=== PATIENT | male | born 1965 | race Caucasian/White ===

== ENCOUNTER 2020-09-11 11:13 | Outpatient (REF) | payer MEDICAID, SELFPAY ==
[2020-09-11 15:23] LABS: SARS COV2 PCR INHOUSE NEGATIVE (Negative)
== END 2020-09-11 11:14 | disposition home or self-care (01) ==
LOC: HO.LAB 11:13
PROVIDERS: Visit Provider Internal Medicine
DX: Z20.822 Contact with and (suspected) exposure to COVID-19 (principal)
CPT/HCPCS: C9803; U0003

== ENCOUNTER 2021-11-19 10:41 | Emergency (ER) | payer MEDICAID, OTHER, SELFPAY ==
--- NOTE | ~2021-11-19 | XR_ITS ---
EXAMINATION: XR CHEST CLINICAL INFORMATION: Cough for 3 days COMPARISON: Chest x-ray 09/19/2019 TECHNIQUE: Frontal view of the chest was obtained. FINDINGS: Cardiac silhouette is normal in size. Unchanged prominent right paratracheal stripe. The lungs are well aerated. There is no lobar consolidation. No pleural effusion or pneumothorax. XR/XR chest 1V IMPRESSION: No acute pulmonary pathology.
[2021-11-19 10:50] VITALS: BP 143/86; PULSE 80; RESP 16; TEMP 35.8; O2SAT 97; BMI 33.6
[2021-11-19 11:19] LABS: IDNOW Serial# 08D9AD1C; Strep A Nucleic Acid Negative (Negative)
[2021-11-19 11:24] LABS: COVID-19 Test Negative (Negative); IDNOW Serial# 16C4AD1C; Influenza A Negative (Negative); Influenza B2 Negative (Negative)
--- NOTE | 2021-11-19 16:37 | ED_ITS ---
HPI - URI/Sore Throat General Chief Complaint: Upper Respiratory Symptoms Stated Complaint: Sore throat/Cough/Fever Time Seen by Provider: 11/19/21 12:13 Source: patient Mode of arrival: ambulatory Limitations: language barrier History of Present Illness HPI Narrative: 56-year-old Swazi-speaking male presents for 3 days of runny nose, itchy eyes, headache, sneezing, cough, body aches, sore throat. Patient has a history of seasonal allergies. Related Data Previous Rx's Medication Instructions Recorded cetirizine 10 mg tablet 10 mg PO DAILY 30 days #30 tabs 11/19/21 Allergies Allergy/AdvReac Type Severity Reaction Status Date / Time No Known Allergies Allergy Unverified 02/29/20 19:42 [No Known Allergies*] Review of Systems Constitutional: Constitutional: Denies body ache(s), Denies chills, Denies fatigue, Denies fever(s), Reports headache(s), Denies malaise and Denies weakness Eyes: Eyes: Denies change in vision, Denies diplopia and Reports itchy eyes ENT: Denies vertigo, Denies dizziness, Denies otalgia, Reports headache(s), Denies mouth pain, Reports nasal discharge, Denies post nasal drip, Denies sinus pain, Denies sinus pressure, Reports sore throat and Denies throat swelling Cardiovascular: Cardiovascular: Denies chest pain, Denies syncope, Denies leg edema, Denies lightheadedness, Denies Loss of Consciousness, Denies palpitations and Denies dyspnea Respiratory: Respiratory: Denies chest congestion, Reports cough and Denies dyspnea Gastrointestinal: Gastrointestinal: Denies abdominal pain, Denies hematochezia, Denies constipation, Denies diarrhea, Denies nausea and Denies vomiting Musculoskeletal: Musculoskeletal: Reports myalgias Neurologic: Denies confusion, Denies vertigo, Denies dizziness, Denies syncope, Reports headache(s) and Denies weakness Psychiatric: Psychiatric: Denies anxiety, Denies confusion and Denies depression Endocrine: Endocrine: Denies fatigue and Denies palpitations Allergic/Immunologic: Allergic/Immunologic: Reports itchy eyes and Denies throat swelling PMFSH Social History Social History Advance Directives: No Advance Directives Information Provided: No Physical Exam Vital Signs: Vital Signs: Last Vital Signs Temp 96.5 F L 11/19/21 10:50 Pulse 80 11/19/21 10:50 Resp 16 11/19/21 10:50 BP 143/86 H 11/19/21 10:50 Pulse Ox 97 11/19/21 10:50 O2 Del Method 11/19/21 10:50 BMI result Body Mass Index 33.6 Const: General: No confusion Nutritional Appearance: well nourished Orientation/consciousness: No confusion Limitations: no limitations HEENT: Head: Yes normal to inspection, Yes normocephalic and Yes atraumatic Ears: hearing grossly normal bilaterally, external ears normal, TM's normal bilaterally and EAC's normal General nose exam: Normal external nose present Face and sinus: Yes normal facial exam and Yes sinuses nontender Mouth: Normal oral and palatal mucosa present Throat: Yes posterior oropharynx normal Eyes: Conjunctivae: conjunctivae normal Pupils: Equal, round and reactive pupils present EOM: EOMs intact bilaterally Neck: Neck: Yes full ROM, Yes no lymphadenopathy and Yes supple Resp: Effort & Inspection: normal respiratory effort and able to speak in complete sentences Auscultation: clear to auscultation bilaterally, no crackles, no rales, no rhonchi and no wheezes Cardio: Rate: regular rate Rhythm: regular rhythm Heart sounds: S1 normal heart sound present and S2 normal heart sound present GI: Inspection: Yes normal to inspection Palpation (GI): Soft to palpation, nontender, no guarding and not rigid Percussion: Yes normal to percussion Auscultation: normal bowel sounds Skin: General skin exam: no rashes or lesions noted Neuro: General: No confusion Cranial nerves: Yes Equal, round and reactive pupils present Extrem: General: Yes normal to inspection and Yes full ROM Psych: Appearance: grossly normal Affect: normal affect Attitude: cooperative Thought process: Normal thought process present Course Course Course Narrative: 56-year-old male with 3 days of runny nose, itchy eyes, sneezing, headache, sore throat, body aches, cough. No fever. Patient has a history of seasonal allergies . On exam, patient is afebrile, stable vitals, lungs clear to auscultation bilaterally, physical exam is benign. Patient is COVID negative, influenza negative, strep negative. This is either a viral syndrome or a seasonal allergy exacerbation. Will treat with cetirizine. Counseled patient to follow-up with her primary care provider and gave return precautions [facility] - URI/Sore Throat Lab Data Labs: Lab Results 11/19/21 11/19/21 11/19/21 Range/Units 10:55 10:55 10:55 COVID-19 (ELLEN) Negative (Negative) COVID-19 Clin Com See Note Influenza Type A (JULIET) Negative (Negative) Influenza Type B (JULIET) Negative (Negative) Influenza A & B Note See Note S. pyogenes GrpA JULIET Negative (Negative) Discharge Plan Discharge Clinical Impression: Seasonal allergic reaction Patient Disposition: Home, Self-Care Instructions: Allergic Rhinitis (ED) Additional Instructions: your COVID test, strep test, an influenza test, were all negative today. Her chest x-ray was normal. I think you have seasonal allergies, I prescribed allergy medicine to your pharmacy. Please call your primary care provider for follow-up appointment from today's emergency room visit villasenor prueba de COVID, prueba de estreptococo, yuliya prueba de influenza, dieron negativo hoy. [place]as[place] radiograf?a de t?rax fue normal. Creo que tiene alergias estacionales, le recet? un medicamento para la alergia en [place] farmacia. Llame a villasenor proveedor de atenci?n primaria para yuliya jasmyne de seguimiento de la visita a la gloria de emergencias de Prescriptions: New cetirizine 10 mg tablet 10 mg PO DAILY 30 Days Qty: 30 0RF Interventions: ED Discharge Assessment Last Done: 11/19/21 12:43 Discharge Date/Time: 11/19/21 12:43 Print Language: Swazi
== END 2021-11-19 12:43 | disposition home or self-care (01) ==
PROVIDERS: Emergency Provider Emergency Medicine; PCP Internal Medicine
DX: J30.2 Other seasonal allergic rhinitis (principal); Z20.822 Contact with and (suspected) exposure to COVID-19; J02.9 Acute pharyngitis, unspecified
CPT/HCPCS: 71045; 87502; 87635; 87651; 99282; 99283

== ENCOUNTER 2022-03-10 10:44 | Outpatient (REF) | payer MEDICAID, OTHER, SELFPAY ==
[2022-03-10 11:51] LABS: COVID-19 Test Positive (Negative); IDNOW Serial# 16C4AD1C
== END 2022-03-10 10:45 | disposition home or self-care (01) ==
LOC: HO.LAB 10:44
PROVIDERS: Visit Provider Internal Medicine
DX: Z20.822 Contact with and (suspected) exposure to COVID-19 (principal)
CPT/HCPCS: 87635; C9803

== ENCOUNTER 2022-04-07 14:06 | Emergency (ER) | payer OTHER, SELFPAY ==
[2022-04-07 19:05] VITALS: BP 139/95; PULSE 74; RESP 18; TEMP 36.5; O2SAT 96; BMI 33.5
== END 2022-04-07 21:16 | disposition left against medical advice (07) ==
LOC: HO.ED 20:58
PROVIDERS: Emergency Provider Emergency Medicine; PCP Internal Medicine
DX: M79.10 Myalgia, unspecified site (principal); M54.50 Low back pain, unspecified
CPT/HCPCS: 99281

== ENCOUNTER 2022-04-08 07:18 | Emergency (ER) | payer OTHER, SELFPAY ==
[2022-04-08 08:19] VITALS: BP 142/85; PULSE 93; RESP 20; TEMP 36.3; O2SAT 97; BMI 33.5
[2022-04-08 08:34] LABS: MANUAL DIFF FLAG NO
[2022-04-08 08:37] LABS: Basophils Percent Auto 0.6 % (0-2); Eosinophils Absolute Auto 0.1 X10*3/uL (0.0-0.4); Eosinophils Percent Auto 2.7 % (0-4); Hematocrit 44.1 % (42.0-52.0); Hemoglobin 14.9 g/dl (14.0-18.0); Imm Gran Abs Auto 0.01 X10*3/uL (0.00-0.03); Imm Gran Pct Auto 0.2 % (0.0-0.4); Lymphocytes Percent Auto 38.5 % (20-40); Mean Corpuscular HGB Conc 33.8 g/dl (31.0-36.0); Mean Corpuscular Hemoglobin 29.8 pg (27.0-33.0); Mean Corpuscular Volume 88.2 fL (80.0-98.0); Mean Platelet Volume 10.8 fL (9.4-12.4); Monocytes Absolute Auto 0.4 X10*3/uL (0.1-1.2); Monocytes Percent Auto 7.2 % (2-11); Neutrophils Absolute Auto 2.7 x10*3/uL (2.0-8.3); Neutrophils Percent Auto 50.8 % (45-73); Platelet Count 179 X10*3/uL (160-400); Red Cell Distribution Width 12.5 % (11.0-16.0); White Blood Count 5.3 X10*3/uL (4.8-10.8)
[2022-04-08 08:39] LABS: Appearance Urine Clear; Color Urine Yellow; Glucose Urine UA 250 mg/dL (Negative); Leukocyte Esterase Urine Negative (Negative); Nitrite Urine Negative (Negative); PH 5.5 (5.0-9.0); Specific Gravity - Urine 1.025 (1.005-1.025); Urine Blood Negative (Negative); Urine Ketones Trace mg/dL (Negative); Urine Protein Negative (Neg-Trace)
[2022-04-08 08:55] LABS: Alanine Aminotransferase 24 U/L (0-40); Albumin Level 4.2 g/dL (3.5-5.0); Alkaline Phosphatase 84 U/L (39-117); Anion Gap 12 (12-20); Aspartate Amino Transferase 18 U/L (5-37); Bilirubin Direct 0.2 mg/dL (0.0-0.5); Bilirubin Total 0.4 mg/dL (0.0-1.0); Blood Urea Nitrogen 15 mg/dL (9-16); Carbon Dioxide 26 mmol/L (22-29); Chloride 107 mmol/L (96-108); Creatinine Clr Calc Pharmacy 99.7; Estimated Glomerular Filt Rate > 60; Glucose Random 186 mg/dL (60-115); Lipase 26 U/L (8-78); Potassium 3.9 mmol/L (3.3-5.1); Sodium 141 mmol/L (135-145); Total Protein 7.1 g/dL (6.5-8.0)
== END 2022-04-08 15:31 | disposition left against medical advice (07) ==
PROVIDERS: Emergency Provider Emergency Medicine; PCP Internal Medicine
DX: R10.30 Lower abdominal pain, unspecified (principal); Z79.899 Other long term (current) drug therapy
CPT/HCPCS: 36415; 80048; 80076; 81003; 83690; 85025; 99282; 99283

== ENCOUNTER 2022-04-22 08:25 | Outpatient (REF) | payer OTHER, SELFPAY ==
--- NOTE | ~2022-04-22 | XR_ITS ---
EXAMINATION: XR LUMBOSACRAL SPINE WITH OBLIQUES CLINICAL INFORMATION: Back pain COMPARISON: None TECHNIQUE: AP, both oblique, and lateral views of the lumbar spine. Lateral view of the lumbosacral junction. FINDINGS: The vertebral bodies and posterior elements are normal. The disc spaces are preserved and the vertebral alignment is normal. The paraspinal soft tissues are normal. XR/XR lumbar spine 4V min IMPRESSION: Unremarkable examination.
== END 2022-04-22 08:26 | disposition home or self-care (01) ==
LOC: HO.XRAY 08:25
PROVIDERS: PCP Internal Medicine; Visit Provider Internal Medicine
DX: M54.50 Low back pain, unspecified (principal)
CPT/HCPCS: 72110

== ENCOUNTER 2023-01-29 09:18 | Outpatient (AMB) | payer OTHER, SELFPAY ==
--- NOTE | 2023-01-29 09:30 | A.OFFVIS_ITS ---
Intake Intake Visit Reasons: BPH w nocturia Intake Note: New Patient presents initial visit BPH w/ nocturia Urology Medications: none Blood Thinner: none PVR: 170ml's Weight Engineer Required: Yes Weight Engineer Name: [id number] Accompanied by: Self / Same As Patient Allergies No Known Allergies [No Known Allergies*] Allergy (Unverified 01/29/23 10:22) Medication List - Last Reconciled 01/29/23 by MALLIKA Freitas cetirizine 10 mg PO DAILY 30 days citalopram 20 mg PO QAM famotidine 20 mg PO QAM lisinopril 5 mg PO QAM tamsulosin 0.4 mg PO BEDTIME 30 days HPI HPI Comments History of Present Illness Details Sharan is a very pleasant Khmer-speaking male patient of Dr. Bonilla. He has a past medical history of anxiety, depression, and hypertension. He presents to the office today as a new patient for ongoing lower urinary tract symptoms. In discussion with the patient today he reports previously following up with a urologist and [facility] however this was many years ago. When asked he reports feelings of incomplete bladder emptying, urinary frequency, and intermittent episodes of dysuria. He otherwise denies incontinence, nocturia, hematuria, foul smelling urine, changes to urinary stream, flank pain, fever, and or chills. In office urinalysis results reviewed with the patient today. Microscopic hematuria noted. Patient reports previously having right-sided renal surgery in the [place] however is unaware what procedure was completed and for what reason. Discussed at length potential causes for microscopic hematuria as well as further microscopic hematuria with cytology, imaging, and in office cystoscopy. When asked patient denies any previous chemical exposure or smoking history. CONOR offered however declined. He otherwise offers no other issues or concerns at this time. [facility] Medical History Benign prostatic hyperplasia with nocturia Class 1 obesity due to excess calories without serious comorbidity in adult Mixed anxiety and depressive disorder Primary hypertension Snoring Review of Systems Const Reports as per HPI Eyes Reports no additional complaints ENT Reports no additional complaints Card Reports as per HPI Resp Reports no additional complaints GI Reports no additional complaints Reports as per HPI Musc Reports no additional complaints Neuro Reports no additional complaints Psych Reports as per HPI Endo Reports no additional complaints Aller/Immun Reports no additional complaints Physical Exam Const General: cooperative, healthy appearing, comfortable, no acute distress, well developed, alert and awake Orientation/consciousness: patient oriented x3 Limitations: no limitations HEENT Head: Yes normal to inspection, Yes normocephalic and Yes atraumatic Ears: hearing grossly normal bilaterally Eyes General: appearance normal, both eyes and all related structures Neck Neck: Yes normal visual inspection and Yes trachea midline Chest Chest palpation & inspection: normal inspection of the chest Resp Effort & Inspection: normal respiratory effort and able to speak in complete sentences Cardio Rate: regular rate GI Inspection: Yes normal to inspection General: Yes no CVA tenderness Back/Spine/Pelvis Back: no CVA tenderness Skin General skin exam: no rashes or lesions noted Neuro General: patient oriented x3 Extrem General: Yes normal to inspection Psych Appearance: grossly normal and well kempt Mental Status: mental status grossly normal Speech and movement: Normal speech and movement present and Clear speech present Affect: normal affect Attitude: cooperative Thought process: Normal thought process present Thought content: Normal thought content present Insight: Fair insight present (Psych) Judgement: Fair judgement present (Psych) Office Procedures Post Void Residual Post Residual Void Post Void Residual (PVR): 170 [id number] Void Residual by ultrasound Results AMB Urinalysis, Automated UA Leukoctes 0 Jesús/uL Last Edit by Bomgar on 01/29/23 10:08 UA Nitrite Negative Last Edit by Bomgar on 01/29/23 10:08 UA Urobilinogen 0.2 mg/dL Last Edit by Bomgar on 01/29/23 10:08 UA Protein 0 mg/dL Last Edit by Bomgar on 01/29/23 10:08 UA pH 6.5 Last Edit by Bomgar on 01/29/23 10:08 UA Blood 25 Juan/uL Last Edit by Bomgar on 01/29/23 10:08 UA Specific [place] 1.015 Last Edit by Bomgar on 01/29/23 10:08 UA Ketone Negative Last Edit by Bomgar on 01/29/23 10:08 UA Bilirubin 0 mg/dL Last Edit by eelusione CHOOMOGO on 01/29/23 10:08 UA Glucose 0 mg/dL Last Edit by Bomgar on 01/29/23 10:08 Results Reviewed Results Reviewed: Laboratory Last Values Urine pH (Auto) 6.5 01/29/23 10:04 Specific [place] (Auto) 1.015 01/29/23 10:04 Urine Protein (Auto) 0 mg/dL 01/29/23 10:04 Glucose (UA)(Auto) 0 mg/dL 01/29/23 10:04 Urine Ketones (Auto) Negative 01/29/23 10:04 Urine Blood (Auto) 25 Juan/uL 01/29/23 10:04 Urine Nitrite (Auto) Negative 01/29/23 10:04 Urine Bilirubin (Auto) 0 mg/dL 01/29/23 10:04 Urine Urobilinogen (Auto) 0.2 mg/dL 01/29/23 10:04 Leukocyte Esterase (Auto) 0 Jesús/uL 01/29/23 10:04 Assessment & Plan Assessment & Plan (1) Incomplete bladder emptying: Code(s): R33.9 - Retention of urine, unspecified (2) Dysuria: Code(s): R30.0 - Dysuria (3) Microhematuria: Code(s): R31.29 - Other microscopic hematuria Plan In office urinalysis results reviewed with the patient today. PVR 170 mL Discussed at length potential causes for incomplete bladder emptying as well as affects of incomplete bladder emptying Discussed further microscopic hematuria workup Discussed obtaining retroperitoneal ultrasound for further assessment evaluation. Start Flomax as discussed and prescribed. PSA ordered for further assessment evaluation Discussed near future in office cystoscopy is symptoms persist and/or worsen. Discussed attempting to sit when urinating to relax pelvis and assist with incomplete bladder emptying. CONOR offered however declined Follow-up in 6-8 weeks with imaging and lab to be completed prior; or sooner with any issues, concerns, and or questions. Orders: Orders US retroperitoneal comp Today R30.0 - Dysuria, R31.29 - Other microscopic hematuria, R33.9 - Retention of urine, unspecified Prostate Specific Antigen Today N40.0 - Benign prostatic hyperplasia without lower urinary tract symptoms Urine Cytology Today R31.29 - Other microscopic hematuria AMB Urinalysis Automated Today Z13.9 - Encounter for screening, unspecified AMB Post Void Residual by ultrasound Today Z13.9 - Encounter for screening, unspecified Medications: New tamsulosin 0.4 mg PO BEDTIME 30 days 30 caps 1RF N40.1 - Benign prostatic hyperplasia with lower urinary tract symptoms, R35.1 - Nocturia Coding Level of Care Code New Pt Level 4 (32211) Diagnoses Incomplete bladder emptying R33.9 Dysuria R30.0 Microhematuria R31.29 CPT Codes Post Residual Void - PVR CPT Code: 31152-Zmdk Void Residual by ultrasound ([id number])
== END 2023-01-29 10:35 | disposition home or self-care (01) ==
PROVIDERS: PCP Internal Medicine; Visit Provider Nurse Practitioner Family
DX: R33.9 Retention of urine, unspecified (principal); R30.0 Dysuria; R31.29 Other microscopic hematuria
CPT/HCPCS: 99204

== ENCOUNTER 2023-01-29 09:18 | Outpatient (REF) | payer OTHER, SELFPAY | END 2023-01-29 09:19 | disposition home or self-care (01) | LOC: HO.LNP 09:18 | PROVIDERS: PCP Internal Medicine; Visit Provider Nurse Practitioner Family | DX: R33.9 Retention of urine, unspecified (principal); R30.0 Dysuria; R31.29 Other microscopic hematuria | CPT/HCPCS: 51798; 81003; 99202 ==

== ENCOUNTER 2023-01-29 18:02 | Outpatient (REF) | payer OTHER, SELFPAY ==
[2023-01-29 18:05] LABS: Urine Cytology See Pathology rpt
== END 2023-01-29 18:03 | disposition home or self-care (01) ==
LOC: HO.LNP 18:02
PROVIDERS: Visit Provider Nurse Practitioner Family
DX: R31.29 Other microscopic hematuria (principal)
CPT/HCPCS: 88112

== ENCOUNTER 2023-02-04 13:11 | Outpatient (REF) | payer OTHER, SELFPAY ==
--- NOTE | ~2023-02-04 | US_ITS ---
EXAMINATION: US RETROPERITONEAL COMPLETE (RENAL) CLINICAL INFORMATION: Other microscopic hematuria. COMPARISON: CT abdomen and pelvis without contrast dated 12/06/2018. TECHNIQUE: Real-time imaging of the kidneys and bladder. FINDINGS: RIGHT KIDNEY: 9.6 x 7.1 x 5.5 cm (SAG x AP x TRV). The kidney is normal in size, contour, and echogenicity. Renal cortical thickness is normal. No calculi or focal parenchymal lesions. No hydronephrosis. LEFT KIDNEY: 12.3 x 5.3 x 5.6 cm (SAG x AP x TRV). The kidney is normal in size, contour, and echogenicity. Renal cortical thickness is normal. No hydronephrosis. There is a 0.9 cm simple cyst in the lower pole for which no imaging follow-up is recommended. There is a 0.5 cm nonobstructive calculus in the mid to lower pole. BLADDER: Well distended and normal. Bilateral ureteral jets are demonstrated. Prevoid bladder volume is 276 mL. Postvoid bladder volume is 3 mL. Prostate volume is 41 mL. US/US retroperitoneal comp IMPRESSION: 1. Nonobstructive 0.5 cm calculus in the mid to lower pole of the left kidney. 2. Mild prostatomegaly.
== END 2023-02-04 13:12 | disposition home or self-care (01) ==
LOC: HO.US 13:11
PROVIDERS: PCP Internal Medicine; Visit Provider Nurse Practitioner Family
DX: R30.0 Dysuria (principal); R31.29 Other microscopic hematuria; R33.9 Retention of urine, unspecified; N20.0 Calculus of kidney
CPT/HCPCS: 76770

== ENCOUNTER 2023-03-26 08:23 | Outpatient (REF) | payer OTHER, SELFPAY ==
[2023-03-26 12:41] LABS: Prostate Specific Antigen 1.82 ng/mL (<0.05-4.0)
== END 2023-03-26 08:24 | disposition home or self-care (01) ==
LOC: HO.10HDL 08:23
PROVIDERS: Visit Provider Nurse Practitioner Family
DX: Z12.5 Encounter for screening for malignant neoplasm of prostate (principal); N40.0 Benign prostatic hyperplasia without lower urinary tract symptoms; R35.1 Nocturia; N28.1 Cyst of kidney, acquired
CPT/HCPCS: 36415; 84153

== ENCOUNTER 2023-03-26 13:47 | Outpatient (AMB) | payer OTHER, SELFPAY ==
--- NOTE | 2023-03-26 13:55 | MHC.OFFVIS ---
Intake Intake Visit Reasons: 6-8 week u/s, PSA Intake Note: Patient presents for tele visit PSA labs Urology Medications: tamsulosin Blood Thinner: none Certified Performance Technologist Required: Yes Certified Performance Technologist Name: Oleksandr Accompanied by: Self / Same As Patient Allergies No Known Allergies [No Known Allergies*] Allergy (Unverified 03/26/23 15:09) Medication List - Last Reconciled 03/26/23 by MALLIKA Freitas cetirizine 10 mg PO DAILY 30 days citalopram 20 mg PO QAM famotidine 20 mg PO QAM lisinopril 5 mg PO QAM tamsulosin 0.4 mg PO BEDTIME 30 days HPI HPI Comments History of Present Illness Details Sharan is a very pleasant 57-year-old Turkish-speaking male patient of Dr. Bonilla. He has a past medical history of anxiety, depression, and hypertension. He is being follow-up on today via telehealth for his ongoing lower urinary tract symptoms. Of note, patient was seen approximately 2 months ago at which time a retroperitoneal ultrasound was ordered, a PSA, and the patient was started on Flomax. Recent retroperitoneal ultrasound results reviewed with the patient today. Right kidney with no calculi, lesions, and or hydronephrosis noted. Left kidney with a 0.9 cm simple cyst in the lower pole for which no imaging follow-up is recommended per radiology report. There is a 0.5 cm nonobstructive calculus in the mid to lower pole. The bladder is well distended and normal. Prostate volume is approximately 40 mL. PSA 04/05--1.8. When asked patient reports to have not picked up tamsulosin at the pharmacy. 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 He continues to report episodes of nocturia and feelings of incomplete bladder emptying. He otherwise denies hematuria, foul smelling urine, changes to urinary stream, flank pain, fever, and or chills. [facility] Medical History Class 1 obesity due to excess calories without serious comorbidity in adult Primary hypertension Snoring Mixed anxiety and depressive disorder Benign prostatic hyperplasia with nocturia Review of Systems Const Reports as per HPI Eyes Reports no additional complaints ENT Reports no additional complaints Card Reports as per HPI Resp Reports no additional complaints GI Reports no additional complaints Reports as per HPI Musc Reports no additional complaints Neuro Reports no additional complaints Psych Reports as per HPI Endo Reports no additional complaints Aller/Immun Reports no additional complaints Physical Exam Const General: cooperative Orientation/consciousness: patient oriented x3 Resp Effort & Inspection: able to speak in complete sentences Neuro General: patient oriented x3 Psych Speech and movement: Clear speech present Attitude: cooperative Thought process: Normal thought process present Thought content: Normal thought content present Insight: Fair insight present (Psych) Judgement: Fair judgement present (Psych) Results Reviewed Results Reviewed: Date of Service: 02/04/23 EXAMINATION: US RETROPERITONEAL COMPLETE (RENAL) FINDINGS: RIGHT KIDNEY: 9.6 x 7.1 x 5.5 cm (SAG x AP x TRV). The kidney is normal in size, contour, and echogenicity. Renal cortical thickness is normal. No calculi or focal parenchymal lesions. No hydronephrosis. LEFT KIDNEY: 12.3 x 5.3 x 5.6 cm (SAG x AP x TRV). The kidney is normal in size, contour, and echogenicity. Renal cortical thickness is normal. No hydronephrosis. There is a 0.9 cm simple cyst in the lower pole for which no imaging follow-up is recommended. There is a 0.5 cm nonobstructive calculus in the mid to lower pole. BLADDER: Well distended and normal. Bilateral ureteral jets are demonstrated. Prevoid bladder volume is 276 mL. Postvoid bladder volume is 3 mL. Prostate volume is 41 mL. IMPRESSION: 1. Nonobstructive 0.5 cm calculus in the mid to lower pole of the left kidney. 2. Mild prostatomegaly. Assessment & Plan Assessment & Plan (1) Nocturia: Code(s): R35.1 - Nocturia (2) Renal cyst: Code(s): N28.1 - Cyst of kidney, acquired (3) Nephrolithiasis: Code(s): N20.0 - Calculus of kidney Plan Recent retroperitoneal ultrasound results reviewed with the patient today Recent PSA results reviewed with the patient today Will refer to home sleep study for further assessment evaluation as patient reports snoring and nocturia Discussed limiting fluids 3-4 hours prior to bed to assist with decreasing episodes of nocturia. Start Flomax as discussed and prescribed. Start vitamin B6 as discussed and prescribed. Educated, encouraged, and stressed the importance of drinking plenty of water daily Discussed potential causes of nephrolithiasis. Discussed possible near future in office cystoscopy if symptoms persist and/or worsen. Follow-up in 6 weeks with PVR; or sooner with any issues, concerns, and or questions. Orders: Orders RT home sleep study Today R35.1 - Nocturia Medications: New pyridoxine (vitamin B6) 100 mg PO DAILY 90 tabs 1RF 90 days Refilled tamsulosin 0.4 mg PO BEDTIME 30 days 30 caps 1RF N40.1 - Benign prostatic hyperplasia with lower urinary tract symptoms, R35.1 - Nocturia Patient Instructions: The patient had an opportunity to ask questions regarding the treatment plan. All questions were answered. Physical exam, labs, and imaging were discussed and reviewed in detail. As well as risks, benefits, and discussion of treatment choices. No major barriers to understanding were identified. The patient expressed understanding and agreement with the above treatment plan. The patient was made aware they should contact our office by phone for worsening of their current condition, the appearance of new symptoms, or with any questions or concerns. Compliance is encouraged with any medications and follow up testing that is ordered. It is a privilege to be allowed the opportunity to participate in? your urological care.? Again, if you have any questions or concerns If you have any questions or concerns please do not hesitate to contact me. The office is [phone]. This note is constructed using voice recognition software. While every effort has been made to ensure accuracy knockdown worker errors may have been included. Yours sincerely, Mally Howard [facility] Telehealth Telehealth Location of provider rendering services: practice address Location of patient: address on file Patient Identification confirmed using: Name, : Yes Telehealth method: voice only Patient verbally consented to treatment: Yes Patient verbally consented to billing insurance company: Yes Patient informed of any privacy concerns related to visit: Yes Minutes spent on Phone/Video with Pt.: 15 Coding Level of Care Code Tele Est Pt Level 3 (62678) Diagnoses Nocturia R35.1 Renal cyst N28.1 Nephrolithiasis N20.0 Time Spent (min) 15
== END 2023-03-26 14:14 | disposition home or self-care (01) ==
LOC: HO.HUSH 13:48
PROVIDERS: PCP Internal Medicine; Visit Provider Nurse Practitioner Family
DX: R35.1 Nocturia (principal); N28.1 Cyst of kidney, acquired; N20.0 Calculus of kidney
CPT/HCPCS: 99213

== ENCOUNTER 2023-06-09 12:48 | Outpatient (AMB) | payer OTHER, SELFPAY ==
--- NOTE | 2023-06-09 13:41 | MHC.OFFVIS ---
Intake Intake Visit Reasons: follow up/ PVR Intake Note: Patient presents for follow up visit nocturia/pvr Urology Medications: tamsulosin, Vitamin B6 Blood Thinner: none PVR: 0ml's Drawer Maker Required: Yes Accompanied by: Self / Same As Patient Allergies No Known Allergies [No Known Allergies*] Allergy (Unverified 06/09/23 22:05) Medication List - Last Reconciled 06/09/23 by MALLIKA Freitas cetirizine 10 mg PO DAILY 30 days citalopram 20 mg PO QAM famotidine 20 mg PO QAM lisinopril 5 mg PO QAM prednisone 20 mg PO DAILY 5 days pyridoxine (vitamin B6) 100 mg PO DAILY 90 days sulfamethoxazole-trimethoprim 800-160 mg (Bactrim DS) 1 tab PO BID 14 days tamsulosin 0.4 mg PO BEDTIME 30 days HPI HPI Comments History of Present Illness Details Sharan is a very pleasant 57-year-old Upper Sorbian-speaking male patient of Dr. Bonilla. He has a past medical history of anxiety, depression, and hypertension. He presents to the office today for follow-up of his lower urinary tract symptoms. Of note, patient was seen approximately 2 months ago via telehealth at which time he was started on Flomax for reports of nocturia and feeling of incomplete bladder emptying. However, in discussion with the patient today he reports feeling urinary symptoms have since worsened. He reports feeling dysuria, perineal pain, nocturia, and at times urinary frequency. Previous workup has included a retroperitoneal ultrasound noting right kidney with no calculi, lesions, and or hydronephrosis noted. Left kidney with a 0.9 cm simple cyst in the lower pole for which no imaging follow-up is recommended per radiology report. There is a 0.5 cm nonobstructive calculus in the mid to lower pole. The bladder is well distended and normal. Prostate volume is approximately 40 mL. PSA 04/05--1.8. CONOR performed boggy prostate noted. Discussed potential for prostatitis given findings on CONOR as well as reported symptoms. Discussed at length potential causes for lower urinary tract symptoms patient is experiencing as well as prostatitis. In office urinalysis results reviewed with the patient today. PVR 0ml's. [facility] Medical History Class 1 obesity due to excess calories without serious comorbidity in adult Primary hypertension Snoring Mixed anxiety and depressive disorder Benign prostatic hyperplasia with nocturia Review of Systems Const Reports as per HPI Eyes Reports no additional complaints ENT Reports no additional complaints Card Reports as per HPI Resp Reports no additional complaints GI Reports no additional complaints Reports as per HPI Musc Reports no additional complaints Neuro Reports no additional complaints Psych Reports as per HPI Endo Reports no additional complaints Aller/Immun Reports no additional complaints Physical Exam Const General: cooperative, healthy appearing, comfortable, no acute distress, well developed, alert and awake Orientation/consciousness: patient oriented x3 Limitations: no limitations HEENT Head: Yes normal to inspection, Yes normocephalic and Yes atraumatic Ears: hearing grossly normal bilaterally Eyes General: appearance normal, both eyes and all related structures Neck Neck: Yes normal visual inspection and Yes trachea midline Chest Chest palpation & inspection: normal inspection of the chest Resp Effort & Inspection: normal respiratory effort and able to speak in complete sentences Cardio Rate: regular rate GI Inspection: Yes normal to inspection General: Yes no CVA tenderness Back/Spine/Pelvis Back: no CVA tenderness Skin General skin exam: no rashes or lesions noted Neuro General: patient oriented x3 Extrem General: Yes normal to inspection Psych Appearance: grossly normal and well kempt Mental Status: mental status grossly normal Speech and movement: Normal speech and movement present and Clear speech present Affect: normal affect Attitude: cooperative Thought process: Normal thought process present Thought content: Normal thought content present Insight: Fair insight present (Psych) Judgement: Fair judgement present (Psych) Office Procedures Post Void Residual Post Residual Void Post Void Residual (PVR): 0 [id number] Void Residual by ultrasound Results AMB Urinalysis, Automated UA Leukoctes 0 Jesús/uL Last Edit by Sand 9 Nasreen on 06/09/23 14:06 UA Nitrite Negative Last Edit by Sand 9 Nasreen on 06/09/23 14:06 UA Urobilinogen 0.2 mg/dL Last Edit by [employer] on 06/09/23 14:06 UA Protein 15 mg/dL Last Edit by Freedom Meditechhilda Downey on 06/09/23 14:06 UA pH 6.0 Last Edit by [employer] on 06/09/23 14:06 UA Blood 200 Juan/uL Last Edit by Sand 9 Nasreen on 06/09/23 14:06 UA Specific [place] 1.020 Last Edit by Juan Apontejos on 06/09/23 14:06 UA Ketone Negative Last Edit by Juan Downey on 06/09/23 14:06 UA Bilirubin 0 mg/dL Last Edit by Juan Apontejos on 06/09/23 14:06 UA Glucose 0 mg/dL Last Edit by Marshallhilda Fayjos on 06/09/23 14:06 Results Reviewed Results Reviewed: Laboratory Last Values Urine pH (Auto) 6.0 06/09/23 13:44 Specific [place] (Auto) 1.020 06/09/23 13:44 Urine Protein (Auto) 15 mg/dL 06/09/23 13:44 Glucose (UA)(Auto) 0 mg/dL 06/09/23 13:44 Urine Ketones (Auto) Negative 06/09/23 13:44 Urine Blood (Auto) 200 Juan/uL 06/09/23 13:44 Urine Nitrite (Auto) Negative 06/09/23 13:44 Urine Bilirubin (Auto) 0 mg/dL 06/09/23 13:44 Urine Urobilinogen (Auto) 0.2 mg/dL 06/09/23 13:44 Leukocyte Esterase (Auto) 0 Jesús/uL 06/09/23 13:44 Assessment & Plan Assessment & Plan (1) Prostatitis: Code(s): N41.9 - Inflammatory disease of prostate, unspecified (2) Nephrolithiasis: Code(s): N20.0 - Calculus of kidney (3) Dysuria: Code(s): R30.0 - Dysuria (4) Nocturia: Code(s): R35.1 - Nocturia (5) Incomplete bladder emptying: Code(s): R33.9 - Retention of urine, unspecified Plan In office urinalysis results reviewed with the patient today. PVR 0 mL. Discussed findings of boggy prostate noted on CONOR with lower urinary tract symptoms patient is reporting; will treat for prostatitis. Discussed at length potential causes for lower urinary tract symptoms patient is experiencing. Discussed potential causes for prostatitis. Discussed, educated, and stressed the importance of drinking plenty of water daily. Start Bactrim as discussed and prescribed. Start prednisone as discussed and prescribed. Discussed possible near future in office prostate massage for further assessment evaluation if symptoms persist as well as potential for in office cystoscopy. Discussed bladder triggers/irritants Follow-up in 1 month with PVR; or sooner with any issues, concerns, and or questions. Orders: Orders AMB Urinalysis Automated Today Z13.9 - Encounter for screening, unspecified AMB Post Void Residual by ultrasound Today R33.9 - Retention of urine, unspecified Medications: New sulfamethoxazole-trimethoprim 800-160 mg (Bactrim DS) 1 tab PO BID 28 tabs 0RF 14 days N39.0 - Urinary tract infection, site not specified prednisone 20 mg PO DAILY 5 tabs 0RF 5 days N20.0 - Calculus of kidney Discontinued tamsulosin Discontinued Reason: Doctor's Order 0.4 mg PO BEDTIME 30 caps 1RF 30 days N40.1 - Benign prostatic hyperplasia with lower urinary tract symptoms, R35.1 - Nocturia Patient Instructions: The patient had an opportunity to ask questions regarding the treatment plan. All questions were answered. Physical exam, labs, and imaging were discussed and reviewed in detail. As well as risks, benefits, and discussion of treatment choices. No major barriers to understanding were identified. The patient expressed understanding and agreement with the above treatment plan. The patient was made aware they should contact our office by phone for worsening of their current condition, the appearance of new symptoms, or with any questions or concerns. Compliance is encouraged with any medications and follow up testing that is ordered. It is a privilege to be allowed the opportunity to participate in? your urological care.? Again, if you have any questions or concerns If you have any questions or concerns please do not hesitate to contact me. The office is [phone]. This note is constructed using voice recognition software. While every effort has been made to ensure accuracy cushion worker errors may have been included. Yours sincerely, MALLIKA Freitas Coding Level of Care Code Est Pt Level 4 (85436) Diagnoses Prostatitis N41.9 Nephrolithiasis N20.0 Dysuria R30.0 Nocturia R35.1 Incomplete bladder emptying R33.9 CPT Codes Post Residual Void - PVR CPT Code: 03754-Aith Void Residual by ultrasound ([id number])
== END 2023-06-09 14:34 | disposition home or self-care (01) ==
PROVIDERS: PCP Internal Medicine; Visit Provider Nurse Practitioner Family
DX: Z13.9 Encounter for screening, unspecified (principal)
CPT/HCPCS: 99214

== ENCOUNTER → 2023-06-09 12:48 | Outpatient (BNVA) | payer OTHER, SELFPAY | PROVIDERS: PCP Internal Medicine; Visit Provider Nurse Practitioner Family | DX: N41.9 Inflammatory disease of prostate, unspecified (principal); N20.0 Calculus of kidney; R30.0 Dysuria; R35.1 Nocturia; R33.9 Retention of urine, unspecified | CPT/HCPCS: 51798; 81003; 99212 ==

== ENCOUNTER 2023-06-16 08:55 | Outpatient (AMB) | payer OTHER, SELFPAY ==
--- NOTE | 2023-06-16 09:00 | A.OFFVIS_ITS ---
Intake Vital Signs 06/16/23 09:03 Height 5 ft 6 in Weight 197 lb BMI 31.8 BP 134/77 Blood Pressure Location Lt brachial Position Sitting Pulse 84 Intake Visit Reasons: Constipation/colonoscopy screening Intake Note: Patient new consult for 1st pre colonoscopy screening. Patient cc: constipation with some blood and hemorrhoids ?/, denies any other GI issues. Firearms Sales Associate Required: Yes Firearms Sales Associate Name: [facility] Accompanied by: Self / Same As Patient Allergies No Known Allergies [No Known Allergies*] Allergy (Verified 06/16/23 08:59) Medication List - Last Reconciled 06/16/23 by Emily Castillo PA-C bisacodyl (Dulcolax (bisacodyl)) 20 mg (4 x 5 mg) PO ONCE 1 day citalopram 20 mg PO QAM hydrocortisone 2.5% (Proctosol HC) 1 appl [place] BEDTIME PRN lisinopril 5 mg PO QAM polyethylene glycol 3350 (Miralax) 238 grams PO ONCE PRN 1 day psyllium husk (with sugar) 3 gram/7 gram (Metamucil (with sugar)) 1 tbsp PO DAILY 30 days pyridoxine (vitamin B6) 100 mg PO DAILY 90 days HPI HPI Comments History of Present Illness Details A 57 y/o male referred for index screening colonoscopy-hemorrhoid- using cream not much improvement-he notices it when he strains mostly. No rectal bleeding no abdominal pain-he does have bloating from time to time- nothing specific that he can identify He complains testicular discomfort however he has been followed by Urology seen to 05/2023- He has a good appetite no nausea, vomiting or acid reflux No cardiac or respiratory issues No all nausea, vomiting, hematemesis, hematochezia fever or chills [facility] Medical History (Updated 06/16/23 @ 09:42 by Emily Castillo PA-C) Hemorrhoids Class 1 obesity due to excess calories without serious comorbidity in adult Primary hypertension Snoring Mixed anxiety and depressive disorder Benign prostatic hyperplasia with nocturia Surgical History History of kidney surgery Social History Household Members: Family Alcohol intake: never Patient Tobacco Use Status: Never used Tobacco Use of substances other than those prescribed or required for medical reasons: No Review of Systems Const All systems reviewed & are unremarkable except as noted in HPI and below Card Denies chest pain and Denies dyspnea Resp Denies dyspnea GI Denies abdominal pain, Reports bloating, Denies hematochezia and Denies change in stool character Musc Reports back pain Physical Exam Vital Signs: Last Vital Signs Pulse 84 06/16/23 09:03 BP 134/77 06/16/23 09:03 BMI result Body Mass Index 31.8 Very pleasant Const General: cooperative, healthy appearing, comfortable and no acute distress Nutritional Appearance: overweight Orientation/consciousness: patient oriented x3 Limitations: language barrier Eyes Conjunctivae: conjunctival abnormal (Conjunctiva injected bilaterally no dr [place]) Resp Effort & Inspection: normal respiratory effort and able to speak in complete sentences Auscultation: clear to auscultation bilaterally, no rales, no rhonchi and no wheezes Cardio Rate: regular rate Rhythm: regular rhythm Heart sounds: S1 normal heart sound present and S2 normal heart sound present GI Palpation (GI): Soft to palpation and nontender Auscultation: normal bowel sounds Skin General skin exam: no rashes or lesions noted Neuro General: patient oriented x3 Extrem General: Yes full ROM Psych Appearance: grossly normal and well kempt Mental Status: mental status grossly normal Speech and movement: Normal speech and movement present and Clear speech present Affect: normal affect Attitude: cooperative Thought process: Normal thought process present Thought content: Normal thought content present Insight: Good insight present (Psych) Judgement: Good judgement present (Psych) Results Reviewed Results Reviewed: US/US retroperitoneal comp IMPRESSION: 1. Nonobstructive 0.5 cm calculus in the mid to lower pole of the left kidney. 2. Mild prostatomegaly. XR/XR lumbar spine 4V min IMPRESSION: Unremarkable examination. Reviewed most current urology note Assessment & Plan Assessment & Plan (1) Encounter for screening colonoscopy: Code(s): Z12.11 - Encounter for screening for malignant neoplasm of colon Plan: Index screening colonoscopy MiraLax Gatorade prep-reviewed (2) Hemorrhoids: Code(s): K64.9 - Unspecified hemorrhoids Plan: Maintain high-fiber diet-Metamucil Hydrocortisone cream Avoid straining Plan index screening colonoscopy MG prep- reviewed- needs corporate receptionist Orders: Orders Colonoscopy - GI Use Only Today Z12.11 - Encounter for screening for malignant neoplasm of colon Medications: New polyethylene glycol 3350 (Miralax) Take as directed by mouth the day before your procedure. 238 grams PO ONCE PRN 238 grams 0RF laxative effect 1 day bisacodyl (Dulcolax (bisacodyl)) Day before procedure, prep day Take 4 tablets by mouth upon awakening followed by large glass of water 20 mg (4 x 5 mg) PO ONCE 4 tabs 0RF colonoscopy prep 1 day Z12.11 - Encounter for screening for malignant neoplasm of colon hydrocortisone 2.5% (Proctosol HC) 1 appl [place] BEDTIME PRN 30 grams 3RF hemorrhoids psyllium husk (with sugar) 3 gram/7 gram (Metamucil (with sugar)) 1 tbsp PO DAILY 798 grams 1RF 30 days Patient Instructions: index screening colonoscopy MG prep- reviewed- Maintain high-fiber diet Metamucil Avoid straining Follow-up with urology for any persistent symptoms Encouraged to call questions or concerns Coding Level of Care Code New Pt Level 3 (32478) Diagnoses Encounter for screening colonoscopy Z12.11 Hemorrhoids K64.9 Time Spent (min) 30 Comment corporate receptionist
[2023-06-16 09:03] VITALS: BP 134/77; PULSE 84; BMI 31.8
== END 2023-06-16 10:27 | disposition home or self-care (01) ==
PROVIDERS: PCP Internal Medicine; Visit Provider Physician Assistant
DX: Z12.11 Encounter for screening for malignant neoplasm of colon (principal); K64.9 Unspecified hemorrhoids; Z01.818 Encounter for other preprocedural examination
CPT/HCPCS: 99203

== ENCOUNTER → 2023-06-16 08:55 | Outpatient (BNVA) | payer OTHER, SELFPAY | PROVIDERS: PCP Internal Medicine; Visit Provider Physician Assistant | DX: Z12.11 Encounter for screening for malignant neoplasm of colon (principal); K64.9 Unspecified hemorrhoids | CPT/HCPCS: 99202 ==

== ENCOUNTER 2023-07-01 14:59 | Outpatient (AMB) | payer OTHER, SELFPAY ==
--- NOTE | 2023-07-01 15:04 | A.OFFVIS_ITS ---
Intake Intake Visit Reasons: microgen sample/PVR Intake Note: Patient presents today for Microgen testing/pain with urination Urology Medications: Vitamin B6, tamsulosin Blood Thinner: none Piping Engineer Required: Yes Accompanied by: Self / Same As Patient Allergies No Known Allergies [No Known Allergies*] Allergy (Verified 07/01/23 15:35) Medication List - Last Reconciled 07/01/23 by CARSON FreitasP- bisacodyl (Dulcolax (bisacodyl)) 20 mg (4 x 5 mg) PO ONCE 1 day citalopram 20 mg PO QAM hydrocortisone 2.5% (Proctosol HC) 1 appl [place] BEDTIME PRN lisinopril 5 mg PO QAM polyethylene glycol 3350 (Miralax) 238 grams PO ONCE PRN 1 day psyllium husk (with sugar) 3 gram/7 gram (Metamucil (with sugar)) 1 tbsp PO DAILY 30 days pyridoxine (vitamin B6) 100 mg PO DAILY 90 days sulfamethoxazole-trimethoprim 800-160 mg (Bactrim DS) 1 tab PO BID 14 days tamsulosin 0.4 mg PO DAILY HPI HPI Comments History of Present Illness Details Sharan is a very pleasant 57-year-old Croatian-speaking male patient of Dr. Bonilla. He has a past medical history of anxiety, depression, and hypertension. He presents to the office today for follow-up of his lower urinary tract symptoms. Of note, patient was seen approximately 3 weeks ago at which time he was treated for prostatitis given in office CONOR noted with boggy prostate. In discussion with the patient today reports he had been feeling well after completion of antibiotics however approximately 1 week ago started feeling lower urinary tract symptoms arise again. He reports feeling symptoms of nocturia, dysuria, perineal pain and urinary frequency. He also discusses having tested positive for the flu today. Previous workup has included a retroperitoneal ultrasound noting right kidney with no calculi, lesions, and or hydronephrosis noted. Left kidney with a 0.9 cm simple cyst in the lower pole for which no imaging follow-up is recommended per radiology report. There is a 0.5 cm nonobstructive calculus in the mid to lower pole. The bladder is well distended and normal. Prostate volume is approximately 40 mL. PSA 04/05--1.8. CONOR/prostate massage performed in office boggy prostate noted. Will send for further microgen testing. Discussed at length potential causes for prostatitis as well as for lower urinary tract symptoms patient is experiencing. He otherwise denies hematuria, foul smelling urine, changes to urinary stream, fla nk pain, fever, and or chills. [facility] Medical History Hemorrhoids Class 1 obesity due to excess calories without serious comorbidity in adult Primary hypertension Snoring Mixed anxiety and depressive disorder Benign prostatic hyperplasia with nocturia Surgical History History of kidney surgery Social History Household Members: Family Alcohol intake: never Patient Tobacco Use Status: Never used Tobacco Review of Systems Const Reports as per HPI Eyes Reports no additional complaints ENT Reports no additional complaints Card Reports as per HPI Resp Reports no additional complaints GI Reports no additional complaints Reports as per HPI Musc Reports no additional complaints Neuro Reports no additional complaints Psych Reports as per HPI Endo Reports no additional complaints Aller/Immun Reports no additional complaints Physical Exam Const General: cooperative, healthy appearing, comfortable, no acute distress, well developed, alert and awake Orientation/consciousness: patient oriented x3 Limitations: no limitations HEENT Head: Yes normal to inspection, Yes normocephalic and Yes atraumatic Ears: hearing grossly normal bilaterally Eyes General: appearance normal, both eyes and all related structures Neck Neck: Yes normal visual inspection and Yes trachea midline Chest Chest palpation & inspection: normal inspection of the chest Resp Effort & Inspection: normal respiratory effort and able to speak in complete sentences Cardio Rate: regular rate GI Inspection: Yes normal to inspection General: Yes no CVA tenderness Back/Spine/Pelvis Back: no CVA tenderness Skin General skin exam: no rashes or lesions noted Neuro General: patient oriented x3 Extrem General: Yes normal to inspection Psych Appearance: grossly normal and well kempt Mental Status: mental status grossly normal Speech and movement: Normal speech and movement present and Clear speech present Affect: normal affect Attitude: cooperative Thought process: Normal thought process present Thought content: Normal thought content present Insight: Fair insight present (Psych) Judgement: Fair judgement present (Psych) Results AMB Urinalysis, Automated UA Leukoctes 0 Jesús/uL Last Edit by Juan Downey on 07/01/23 15:59 UA Nitrite Negative Last Edit by [employer] on 07/01/23 15:59 UA Urobilinogen 0.2 mg/dL Last Edit by [employer]ris [employer]ke Bress on 07/01/23 15:59 UA Protein 15 mg/dL Last Edit by Abdoulyce Fayss on 07/01/23 15:59 UA pH 5.5 Last Edit by Tetris Onlineyce Fayss on 07/01/23 15:59 UA Blood 0 Juan/uL Last Edit by Affect[employer]ae Say-Heyjos on 07/01/23 15:59 UA Specific [place] 1.030 Last Edit by [employer] on 07/01/23 15:59 UA Ketone Negative Last Edit by Affectivahilda Say-Heyjos on 07/01/23 15:59 UA Bilirubin 1 mg/dL Last Edit by Affect[employer]ae Say-Heyjos on 07/01/23 15:59 UA Glucose 0 mg/dL Last Edit by Affectivahilda Say-Heyjos on 07/01/23 15:59 Results Reviewed Results Reviewed: Laboratory Last Values Urine pH (Auto) 5.5 07/01/23 15:58 Specific [place] (Auto) 1.030 07/01/23 15:58 Urine Protein (Auto) 15 mg/dL 07/01/23 15:58 Glucose (UA)(Auto) 0 mg/dL 07/01/23 15:58 Urine Ketones (Auto) Negative 07/01/23 15:58 Urine Blood (Auto) 0 Juan/uL 07/01/23 15:58 Urine Nitrite (Auto) Negative 07/01/23 15:58 Urine Bilirubin (Auto) 1 mg/dL 07/01/23 15:58 Urine Urobilinogen (Auto) 0.2 mg/dL 07/01/23 15:58 Leukocyte Esterase (Auto) 0 Jesús/uL 07/01/23 15:58 Assessment & Plan Assessment & Plan (1) Prostatitis: Code(s): N41.9 - Inflammatory disease of prostate, unspecified (2) Nephrolithiasis: Code(s): N20.0 - Calculus of kidney (3) Dysuria: Code(s): R30.0 - Dysuria (4) Nocturia: Code(s): R35.1 - Nocturia (5) Incomplete bladder emptying: Code(s): R33.9 - Retention of urine, unspecified Plan In office urinalysis results reviewed with the patient today. PVR 0 mL. Discussed findings of boggy prostate noted on CONOR with lower urinary tract symptoms patient is reporting; will send urine for further microgen testing. Discussed at length potential causes for lower urinary tract symptoms patient is experiencing. Discussed potential causes for prostatitis. Discussed, educated, and stressed the importance of drinking plenty of water daily. Start Bactrim as discussed and prescribed. Discussed possible near future in office cystoscopy for further assessment evaluation. Discussed bladder triggers/irritants Follow-up in 1 month with PVR; or sooner with any issues, concerns, and or questions. Orders: Orders AMB Urinalysis Automated Today Z13.9 - Encounter for screening, unspecified Medications: New sulfamethoxazole-trimethoprim 800-160 mg (Bactrim DS) 1 tab PO BID 14 days 28 tabs 0RF N39.0 - Urinary tract infection, site not specified Patient Instructions: The patient had an opportunity to ask questions regarding the treatment plan. All questions were answered. Physical exam, labs, and imaging were discussed and reviewed in detail. As well as risks, benefits, and discussion of treatment choices. No major barriers to understanding were identified. The patient expressed understanding and agreement with the above treatment plan. The patient was made aware they should contact our office by phone for worsening of their current condition, the appearance of new symptoms, or with any questions or concerns. Compliance is encouraged with any medications and follow up testing that is ordered. It is a privilege to be allowed the opportunity to participate in? your urological care.? Again, if you have any questions or concerns If you have any questions or concerns please do not hesitate to contact me. The office is [phone]. This note is constructed using voice recognition software. While every effort has been made to ensure accuracy art psychotherapist errors may have been included. Yours sincerely, MALLIKA Freitas Coding Level of Care Code Est Pt Level 4 (98300) Diagnoses Prostatitis N41.9 Nephrolithiasis N20.0 Dysuria R30.0 Nocturia R35.1 Incomplete bladder emptying R33.9
== END 2023-07-01 15:38 | disposition home or self-care (01) ==
PROVIDERS: PCP Internal Medicine; Visit Provider Nurse Practitioner Family
DX: N41.9 Inflammatory disease of prostate, unspecified (principal); N20.0 Calculus of kidney; R30.0 Dysuria; R35.1 Nocturia; R33.9 Retention of urine, unspecified
CPT/HCPCS: 99214

== ENCOUNTER → 2023-07-01 14:59 | Outpatient (BNVA) | payer OTHER, SELFPAY | PROVIDERS: PCP Internal Medicine; Visit Provider Nurse Practitioner Family | DX: N41.9 Inflammatory disease of prostate, unspecified (principal); N20.0 Calculus of kidney; R30.0 Dysuria; R35.1 Nocturia; R33.9 Retention of urine, unspecified | CPT/HCPCS: 81003; 99212 ==

== ENCOUNTER 2023-10-14 10:59 | Day surgery (SDC) | payer MEDICAID, SELFPAY ==
[2023-10-12 11:25] VITALS: BMI 31.8
--- NOTE | 2023-10-12 15:10 | HO.ANESPROP2 ---
Documented by User: Casie Francis NP 10/12/23 15:11 HPI - Anesthesia Eval Consult details Narrative: 57yo F for Colonoscopy PMFSH Active Problems Active Problems: All Active Problems Hemorrhoids (Acute) Encounter for screening colonoscopy (Acute) Prostatitis (Acute) Renal cyst (Acute) Nephrolithiasis (Acute) Nocturia (Acute) Incomplete bladder emptying (Acute) Dysuria (Acute) Microhematuria (Acute) Past Medical History Medical History Hemorrhoids Class 1 obesity due to excess calories without serious comorbidity in adult Primary hypertension Snoring Mixed anxiety and depressive disorder Benign prostatic hyperplasia with nocturia Surgical History Surgical History History of kidney surgery Social History Social History Household Members: Family Alcohol intake: never Patient Tobacco Use Status: Never used Tobacco Use of substances other than those prescribed or required for medical reasons: No Are you DNR?: No Advance Directives: No Advance Directives Information Provided: Yes Meds Allergies Allergy/AdvReac Type Severity Reaction Status Date / Time No Known Allergies Allergy Verified 07/01/23 15:35 [No Known Allergies*] Home Medications ?Medication ?Instructions ?Recorded ?Confirmed ?Last Taken ?Type citalopram 20 mg tablet 20 mg PO QAM 01/25/23 07/01/23 Unknown History lisinopril 5 mg tablet 5 mg PO QAM 01/25/23 07/01/23 Unknown History tamsulosin 0.4 mg capsule 0.4 mg PO DAILY 07/01/23 07/01/23 Unknown History Exam Height,Weight and Vital Signs: Height 5 ft 6 in Weight 89.358 kg Assessment and Plan Assessment Anesthesia Assessment: Chart Reviewed Documented by User: Mikaela Hilton MD 10/14/23 12:15 PMFSH Past Medical History Medical History Hemorrhoids Class 1 obesity due to excess calories without serious comorbidity in adult Primary hypertension Snoring Mixed anxiety and depressive disorder Benign prostatic hyperplasia with nocturia Surgical History Surgical History History of kidney surgery History of Problems with Anesthesia: No Social History Social History Household Members: Family Alcohol intake: never Patient Tobacco Use Status: Never used Tobacco Use of substances other than those prescribed or required for medical reasons: No Are you DNR?: No Advance Directives: No Advance Directives Information Provided: Yes Meds Allergies Allergy/AdvReac Type Severity Reaction Status Date / Time No Known Allergies Allergy Verified 07/01/23 15:35 [No Known Allergies*] Home Medications ?Medication ?Instructions ?Recorded ?Confirmed ?Last Taken ?Type citalopram 20 mg tablet 20 mg PO QAM 01/25/23 07/01/23 Unknown History lisinopril 5 mg tablet 5 mg PO QAM 01/25/23 07/01/23 Unknown History tamsulosin 0.4 mg capsule 0.4 mg PO DAILY 07/01/23 07/01/23 Unknown History Exam Airway Mallampati Class: III TM Dist: >3cm Neck ROM: Full Loose/Missing/Broken Teeth: No Heart: RRR Lungs: CTA Assessment and Plan Assessment Anesthesia Assessment: Anesthesia Plan Discussed Final Anesthetic Review History of Problems with Anesthesia: No NPO: Yes ASA Class: II Final Preanesthetic Review: Meds/Allgs Chart Reviewed and Consent Obtained/Reviewed Patient Risk: Low Procedure Risk: Low Anesthetic Plan Anesthetic Plan: MAC: Disposition: Standard PACU
[2023-10-14 11:13] VITALS: BMI 33.9
[2023-10-14 11:35] VITALS: BP 137/91; PULSE 75; RESP 18; TEMP 36.3; O2SAT 97
--- NOTE | 2023-10-14 13:01 | MHC.SHP ---
Pre-Procedural Eval Section A - 24 Hr Update-Section A only Date of Service: 10/14/23 Section B - Complete if H&P > 30 days Chief Complaint: Screening Details of Present Illness: Hemorrhoids Class 1 obesity due to excess calories without serious comorbidity in adult Primary hypertension Snoring Mixed anxiety and depressive disorder Benign prostatic hyperplasia with nocturia Surgical History History of kidney surgery Present Medications: see Short Stay Collaborative assessment Allergies: Allergies Allergy/AdvReac Type Severity Reaction Status Date / Time No Known Allergies Allergy Verified 07/01/23 15:35 [No Known Allergies*] Review of Systems Review of Systems Comment: Ten point ROS negative Exam Exam Comment: Gen appear: No acute distress HEENT: no icterus Chest: No overt resp distress Abd: soft, nontender, nondistended Psych: Stable affect, answering questions appropriately Neuro: A/Ox3 noted to move all extremities spontaneously Ext: no peripheral edema Plan Diagnosis/Plan: Unchanged I have reviewed the history and physical and performed a pertinent physical examination on my patient. No changes have occurred unless specified. Time Spent With Patient Time: Total time managing care of this patient today ____ minutes.
[2023-10-14 13:50] VITALS: BP 144/80; PULSE 87; RESP 16; TEMP 36.2; O2SAT 93
[2023-10-14 14:05] VITALS: BP 117/67; PULSE 70; RESP 18; O2SAT 98
[2023-10-14 14:20] VITALS: BP 123/91; PULSE 75; RESP 18; TEMP 36.2; O2SAT 97
--- NOTE | 2023-10-14 14:24 | P.OP_ITS ---
Operative Note Operative Note Date of Service: 10/14/23 Narrative: Procedure: Colonoscopy Indication: Screening Endoscopist: Tiana Chapa MD Anesthesia Provider: Laury Braswell CRNA Anesthesia type: MAC Instrument: Olympus [id number]-[id number] Consent: Indication, risks vs benefits, and alternatives were discussed with the patient who gave written informed consent to proceed. An business process architect was utilized to assist with the consent. EKG, pulse, pulse oximetry and blood pressure were monitored throughout the procedure. Please see anesthesia flowsheet. Procedure: The patient was brought to the procedure room and placed in the left lateral decubitus position. IV medications were administered by the anesthesia provider in attendance. A digital rectal exam was performed which was chad. The still attachment cap was affixed to the tip of the scope and the colonoscope was then inserted through the anus and advanced through the colon to the cecum at 75 cm,and terminal ileum. Appendiceal orifice and ileocecal valve were identified. Mucosa was carefully examined under high definition white light as the instrument was slowly withdrawn in a retrograde panoramic fashion. Retroflexion was performed in rectum. The procedure was not difficult. There were no immediate obvious complications. The quality of the prep was BBPS: 2+2+2 = adequate Withdrawal time 11 minutes. Limitations: No limitations. Findings: Mucosa: Copious liquid stool was noted throughout the colon which was extensi vely suctioned. Mucosa was normal to cecum and terminal ileum. Protruding lesions: * Medium internal hemorrhoids without stigmata of recent bleeding. Impression: 1. Normal colon and terminal ileum mucosa 2. Internal hemorrhoids Recommendations: - Repeat colonoscopy for asymptomatic colorectal cancer screening recommended in 7 years due to prep
== END 2023-10-14 14:30 | disposition home or self-care (01) ==
PROVIDERS: PCP Internal Medicine; Visit Provider Internal Medicine
PROC: 0DJD8ZZ Inspection of Lower Intestinal Tract, Via Natural or Artificial Opening Endoscopic (ICD-10-PCS; CPT 45378; principal; 2023-10-14 13:30)
DX: Z12.11 Encounter for screening for malignant neoplasm of colon (principal); K64.8 Other hemorrhoids; I10 Essential (primary) hypertension
CPT/HCPCS: 45378; J2704

== ENCOUNTER → 2023-10-14 10:59 | Outpatient (BNV) | payer MEDICAID, SELFPAY | PROVIDERS: PCP Internal Medicine; Visit Provider Internal Medicine | DX: Z12.11 Encounter for screening for malignant neoplasm of colon (principal); K64.8 Other hemorrhoids | CPT/HCPCS: 45378 ==

== ENCOUNTER 2024-04-13 12:19 | Outpatient (REF) | payer MEDICAID, SELFPAY ==
--- NOTE | ~2024-04-13 | XR_ITS ---
EXAMINATION: XR CERVICAL SPINE CLINICAL INFORMATION: Neck pain COMPARISON: None available. TECHNIQUE: 3 views of the cervical spine were obtained. FINDINGS: Normal alignment and cervical lordosis with mild degenerative disc disease at C5-C6. No fracture. No prevertebral soft tissue swelling. XR/XR cervical spine 3V IMPRESSION: Mild C5-C6 degenerative disc disease. Electronically signed by: Konstantin Willett MD 04/13/2024 04:29 PM EDT
== END 2024-04-13 12:20 | disposition home or self-care (01) ==
LOC: HO.HHCX 12:19
PROVIDERS: Visit Provider Internal Medicine
DX: M54.2 Cervicalgia (principal)
CPT/HCPCS: 72040; 87086

== ENCOUNTER 2024-04-13 13:01 | Outpatient (REF) | payer MEDICAID, SELFPAY | END 2024-04-13 13:02 | disposition home or self-care (01) | LOC: HO.HHCL 13:01 | PROVIDERS: Visit Provider Internal Medicine | DX: R30.0 Dysuria (principal); R35.1 Nocturia | CPT/HCPCS: 87086 ==

== ENCOUNTER 2024-07-13 13:00 | Outpatient (AMB) | payer OTHER, SELFPAY ==
[2024-07-13 13:02] VITALS: BP 134/82; PULSE 88; O2SAT 95
--- NOTE | 2024-07-13 13:02 | A.OFFVIS_ITS ---
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 Name: #[id number] Allergies No Known Allergies [No Known Allergies*] Allergy (Verified 07/13/24 13:08) Medication List - Last Reconciled 07/13/24 by Corinna Matias LPN citalopram 20 mg PO QAM clindamycin HCl 300 mg PO TID 14 days hydrocortisone 2.5% (Proctosol HC) 1 appl TN BEDTIME PRN lisinopril 5 mg PO QAM psyllium husk (with sugar) 3 gram/7 gram (Metamucil (with sugar)) 1 tbsp PO DAILY 30 days pyridoxine (vitamin B6) 100 mg PO DAILY 90 days tamsulosin 0.4 mg PO DAILY HPI Comments Details: Sharan is a very pleasant 58-year-old male who presents to the office today for evaluation and management of his chronic neck pain. Visit completed with plant facilities technician Roderick,#[id number] He has been suffering with this pain for approximately 1 year. Denies inciting injury, fall, trauma. Endorses right sided neck pain that radiates up into his head. Denies radiation down either lower extremity Denies numbness tingling weakness of either upper extremity Pain is worse at night when he is lying down to sleep Pain today is rated as a 5/10 Pain improves with Tylenol and Aleve. No improvement with gabapentin, ice, heat. Patient completed physical therapy less than 6 months ago without of his symptoms Endorses decreased cervical range of motion and pain with flexion, extension and lateral rotation Recent x-rays completed, results were reviewed as per below In terms of muscle damage condition is described as pulsing, throbbing, pounding Pain is negatively impacting patient's enjoyment of life, general activity, sleep, ability to perform activities of daily living, ability to function Denies current use of anticoagulants Denies implantable devices, pacemaker defibrillator Denies current use of nicotine, tobacco, alcohol or illicit substances [facility] Medical History (Updated 07/13/24 @ 13:36 by Brenda Connell, POWERHOUSE MECHANIC APPRENTICE, SOFTWARE QUALITY AUTOMATION ENGINEER) Hemorrhoids Class 1 obesity due to excess calories without serious comorbidity in adult Primary hypertension Snoring Mixed anxiety and depressive disorder Benign prostatic hyperplasia with nocturia Surgical History (Updated 10/25/23 @ 10:21 by Riya Reyes) Hx of colonoscopy History of kidney surgery Social History Household Members: Family Alcohol intake: never Patient Tobacco Use Status: Never used Tobacco Review of Systems Const All systems reviewed & are unremarkable except as noted in HPI and below Physical Exam Vital Signs: Last Vital Signs Pulse 88 07/13/24 13:02 BP 134/82 07/13/24 13:02 Pulse Ox 95 07/13/24 13:02 Oxygen Delivery Method Room Air 07/13/24 13:02 General: awake, alert, oriented. Answers questions appropriately. Fully engaged in examination. Skin: warm, dry, intact HEENT: Normocephalic. Hearing intact. Cardiac: External chest normal in appearance. Respiratory: No cough, audible wheezing or stridor. Abdomen: without gross distension. MS: No obvious swelling or deformities. Cervical Spine: Visible inspection without gross abnormality Tenderness over right middle trapezius Tenderness to palpation midline cervical vertebrae paraspinal muscles decreased cervical ROM in all planes Spurling compression test positive BUE strength 5/5 Neurological: Oriented to person, place, time and situation. Thought process intact. No gait abnormalities appreciated. Psychiatric: Appropriate mood and affect. Good judgment and insight. Results Reviewed Results Reviewed: 03/2024 XR/XR cervical spine 3V FINDINGS: Normal alignment and cervical lordosis with mild degenerative disc disease at C5-C6. No fracture. No prevertebral soft tissue swelling. IMPRESSION: Mild C5-C6 degenerative disc disease. Assessment & Plan Assessment & Plan (1) Cervical spondylosis: Code(s): M47.812 - Spondylosis without myelopathy or radiculopathy, cervical region Category: Medical Plan Sharan presented to the office today for evaluation and management of his chronic neck pain History, physical exam provocative testing consistent with lumbar spondylosis New prescription for amitriptyline 10 mg daily at bedtime. After 2 weeks may increase to 2 tablets daily at bedtime Patient has exhausted conservative therapy including PT, home exercise program, heat, ice, NSAIDs, [id number] medications although symptoms Discussed options for treatment including diagnostic interventional testing, epidural steroid injections, peripheral nerve stimulation with Sprint, RFA and more permanent neuromodulation. Will schedule for fluoroscopy guided diagnostic right C3-C4 C5 medial branch blocks with local anesthetic All questions and concerns have been answered and patient agrees with the plan. Follow up after injections and sooner if needed. Medications: New amitriptyline One tab daily at bedtime for 2 weeks, then may increase to 2 tabs daily at bedtime 20 mg (2 x 10 mg) PO BEDTIME 60 tabs 3RF Coding Level of Care Code New Pt Level 4 (35048) Complex EM visit Add On G2211 Diagnoses Cervical spondylosis M47.812
== END 2024-07-13 13:29 | disposition home or self-care (01) ==
PROVIDERS: PCP Internal Medicine; Referring Provider Internal Medicine; Visit Provider Registered Nurse Emergency
DX: M47.812 Spondylosis without myelopathy or radiculopathy, cervical region (principal)
CPT/HCPCS: 99204; G2211

== ENCOUNTER → 2024-07-13 13:00 | Outpatient (BNVA) | payer OTHER, SELFPAY | PROVIDERS: PCP Internal Medicine; Referring Provider Internal Medicine; Visit Provider Registered Nurse Emergency | DX: M47.812 Spondylosis without myelopathy or radiculopathy, cervical region (principal) | CPT/HCPCS: 99202 ==

== ENCOUNTER → 2024-07-19 19:03 | Outpatient (BNV) | payer OTHER, SELFPAY | PROVIDERS: Visit Provider Radiology Diagnostic Radiology | DX: M47.812 Spondylosis without myelopathy or radiculopathy, cervical region (principal) | CPT/HCPCS: 72141 ==

== ENCOUNTER 2024-08-10 06:45 | Outpatient (REF) | payer OTHER, SELFPAY ==
--- OUTSIDE RECORDS SUMMARY | 2024-08-10 06:48 | XMS_ITS | Clinical Summary ---
Author Organization [employer] [facility] Address [address] [place] [address] Care Team Providers Care Airway Traffic Controller Name Role Phone Riya Ambrocio MD Primary Care Provide r Allergies No known active allergies Medications fenofibrate (Triglide) 160 MG tablet Take 1 tablet (160 mg) by mouth in the morning. 90 tablet 1 3 Active cholecalciferol (Vitamin D-3) 50 MCG (2000 UT) capsule take 1 capsule by Oral route every day 90 capsule 1 3 Active Acetaminophen 500 MG capsule Take one to two tablets as needed for fever or pain every 6 hours 30 capsule 3 Active acetaminophen (Tylenol) 500 MG tablet Take 1 tablet by mouth in the morning and 1 tablet at noon and 1 tablet in the evening and 1 tablet before bedtime. 2 Active acetaminophen (Tylenol) 325 MG tablet Take 1 tablet by mouth every 6 (six) hours. 2 Active baclofen (Lioresal) 10 MG tablet Take 1 tablet by mouth in the morning and 1 tablet in the evening. 2 Active ergocalciferol (Vitamin D-2) 1.25 MG (08301 UT) capsule take 1 capsule by oral route every week 9 Active famotidine (Pepcid) 20 MG tablet Take 1 tablet by mouth every 12 (twelve) hours. 2 Active ibuprofen 800 MG tablet Take 1 tablet by mouth every 8 (eight) hours. 2 Active psyllium (Metamucil) 33 % powder take 1 teaspoon by po route every day with large glass of water 2 Active hydrocortisone (Anusol-HC) 2.5 % rectal creamIndications: Other hemorrhoids Insert into the rectum 2 times daily. 28 g 1 3 Active Ketotifen Fumarate 0.035 % solution Administer 1 drop into affected eye(s) every 12 (twelve) hours if needed (use if needed). INSTILL 1 DROP INTO EACH EYE TWICE A DAILY 10 mL 1 4 Active fluticasone (Flonase) 50 MCG/ACT nasal sprayIndications: Seasonal allergies Administer 1 spray into each nostril Once per day. 16 g 2 4 Active olopatadine (Pataday) 0.2 % ophthalmic solutionIndicatio ns:Seasonal allergies Administer 1 drop into affected eye(s) Once per day. 2.5 mL 2 4 Active EQ Allergy Relief, Cetirizine, 10 MG tabletIndications :Seasonal allergies Take 1 tablet by mouth once daily 90 tablet 4 Active gabapentin (Neurontin) 100 MG capsuleIndication s:Neck pain Take 3 capsules (300 mg) by mouth every 8 (eight) hours. 90 capsule 2 4 04/13/20 25 Active lisinopril 5 MG tabletIndications :Primary hypertension Take 1 tablet (5 mg) by mouth Once per day. 90 tablet 1 5 07/05/19 26 Active citalopram (CeleXA) 20 MG tabletIndications :Mixed anxiety and depressive disorder Take 1 tablet (20 mg) by mouth Once per day. 90 tablet 1 5 01/02/20 25 Active atorvastatin (Lipitor) 20 MG tabletIndications :Primary hypertension Take 1 tablet (20 mg) by mouth Once per day. 90 tablet 1 5 Active phentermine 37.5 MG capsuleIndication s:Class 1 obesity due to excess calories with serious comorbidity and body mass index (BMI) of 33.0 to 33.9 in adult Take 1 capsule (37.5 mg) by mouth before breakfast. 30 capsule 5 Active simethicone (Mylicon,Gas-X) 180 MG capsuleIndication s:Bloating symptom Take 1 capsule (180 mg) by mouth if needed in the morning, at noon, in the evening, and at bedtime for flatulence (before meals as needed). 180 capsule Active Active Problems Problem Noted Date Diagnosed Date Cervicalgia 07/05/2024 Assessment & Plan (07/05/2024 3:18 PM EST): I will order an MRI of the neck I will refer patient to pain management Class 1 obesity due to exces s calories with serious comorbidity and body mass index (BMI) of 33.0 to 33.9 in adult 07/05/2024 Assessment & Plan (07/05/2024 3:21 PM EST): I advised healthy diet and exercise I will start patient on phentermine, side effects reviewed with patient, I will follow-up with patient in 4 weeks Bloating symptom 07/05/2024 Dysuria 04/13/2024 Assessment & Plan (04/13/2024 12:19 PM EDT): UA and culture patient will be contacted with results Urology referral Nycturia 04/13/2024 Neck pain 04/13/2024 Assessment & Plan (04/13/2024 12:20 PM EDT): I will start patient on gabapentin XRAY and PT Fractured dental christianity with loss of materi al 04/03/2024 Generalized gingival recession, severe 4 Gingival bleeding 11/30/2023 Periodontal disease 10/28/2023 Dental calculus 10/28/2023 Missing teeth, acquired 10/28/2023 Seasonal allergies 2023 Witnessed episode of apnea 2023 Other constipation 04/01/2023 Colon cancer screening 04/01/2023 Other hemorrhoids 01/07/2023 Primary hypertension 12/09/2022 Assessment & Plan (07/05/2024 3:19 PM EST): I advised: Low-sodium diet Weight reduction Take medication every day as prescribed Cardiovascular exercise Assessment & Plan (04/13/2024 12:20 PM EDT): - Aerobic exercise to reduce BP. Initial goal of 30 min walk 3-5x/week. Increase as tolerated. - low-sodium diet (goal: <2g/day) and heart healthy diet such as DASH to reduce BP and prevent ASCVD. - Home BP monitoring 1-2 x day with goal of <140/90. - Seek immediate medical attention for chest pain, palpitations, SOB, syncope, or sudden changes in mental status. - Do not change or discontinue current prescriptions without first consulting health care provider Assessment & Plan (10/29/2023 12:14 PM EDT): -his medication was refilled, I advise to take it as soon as possible - Aerobic exercise to reduce BP. Initial goal of 30 min walk 3-5x/week. Increase as tolerated. - low-sodium diet (goal: <2g/day) and heart healthy diet such as DASH to reduce BP and prevent ASCVD. - Home BP monitoring 1-2 x day with goal of <140/90. - Seek immediate medical attention for chest pain, palpitations, SOB, syncope, or sudden changes in mental status. - Do not change or discontinue current prescriptions without first consulting health care provider Assessment & Plan (01/07/2023 10:13 AM EDT): - Aerobic exercise to reduce BP. Initial goal of 30 min walk 3-5x/week. Increase as tolerated. - low-sodium diet (goal: <2g/day) and heart healthy diet such as DASH to reduce BP and prevent ASCVD. - Home BP monitoring 1-2 x day with goal of <140/90. - Seek immediate medical attention for chest pain, palpitations, SOB, syncope, or sudden changes in mental status. - Do not change or discontinue current prescriptions without first consulting health care provider Assessment & Plan (12/09/2022 9:56 AM EDT): I notice his blood pressure has being persistently high I advise low Na diet I started him on lisinopril 5mg daily I instructed to check his BP at home RTC 4 weeks televisit Class 1 obesity due to exces s calories without serious comorbidity in adult 12/09/2022 Benign prostatic hyperplasia with nocturia 10/19 Mixed anxiety and depressive disorder 10/19/2022 Assessment & Plan (07/05/2024 3:22 PM EST): Counseling done today Citalopram reinitiated Assessment & Plan (10/29/2023 12:15 PM EDT): Counseling done Citalopram refilled today Assessment & Plan (01/07/2023 10:14 AM EDT): Counseling done C/w citalopram 20mg daily Assessment & Plan (12/09/2022 9:57 AM EDT): Counseling done I increase citalopram to 20mg daily Snoring 10/19/2022 Assessment & Plan (04/13/2024 12:20 PM EDT): Sleep study information provided Encounters Date Type Department Care Team Description 08/09/[address] [address] Riya Ambrocio MD Call Back Request 07/21/[address] [address] Sharri Chatterjee, RN Results 07/07/[address] [address] Riya Ambrocio MD Prior Authorization ([facility] Request: Phenterimine) 07/05/2024 10:30 AM EST Office Visit [address] [address] Riya Ambrocio MD Cervicalgia (Primary Dx); Primary hypertension; Mixed anxiety and depressive disorder; Class 1 obesity due to excess calories with serious comorbidity and body mass index (BMI) of 33.0 to 33.9 in adult; Bloating symptom 07/05/2024 Travel 06/23/2024 Patient Outreach [address] [address] Riya Ambrocio MD Pre-visit Planning (SDOH screening negative and tobacco screening negative) from Last 3 Months Social History Tobacco Use Types Packs/Day Years Used Date Smoking Tobacco: Never Passive Smoke Exposure: Never Smokeless Tobacco: Never Tobacco Cessation:Counseling Given: Not Answered Alcohol Use Standard Drinks/Week Comments Never 0 (1 standard drink = 0.6 oz pur e alcohol) Alcohol Answer Date Recorded Frequency of Alcohol Consumption Not on file 04/13/2024 Average Number of Drinks Not on file 024 Frequency of Binge Drinking Not on file 03/16 Score 0 04/13/2024 Depression Answer Date Recorded Patient Health Questionnaire-9 Score 0 2023 Patient Health Questionnaire-9 Score 0 2023 Last PHQ-9: Questionnaire Data Not on file 0 2023 Housing Stability Answer Date Recorded What is your housing situation today? I have carla colbert 03/31/[address] you li ve. Do you have problems with any of the following? None of the above 03/31/2023 Food Insecurity Answer Date Recorded Within the past 12 months, y ou worried that your food would run out before you got money to buy more: Never True 03/31/2023 Within the past 12 months,th e food you bought just didn't last and you didn't have enough money to get more: Never True Transportation Answer Date Recorded In the past 12 months, has l ack of transportation kept you from medical appts, meetings, work or from getting things needed for daily living? No 03/31/2023 Utilities Answer Date Recorded In the past 12 months, has t he electric, gas, oil or water company threatened to shut off services in your home? No 03/31/2023 Depression Answer Date Recorded Patient Health Questionnaire-2 Score 0 2023 Internet Access Answer Date Recorded Internet Access Q1 Yes 06/23/2024 Internet Access Q2 Not on file 06/23/2024 Sex and Gender Information Value Date Recorded Sex Assigned at Male 04/13/2022 10:35 AM EDT Legal Sex Male 10:35 AM EDT Gender Identity Male 04/13/2022 10:35 AM EDT Sexual Orientation Straight 04/13/2022 10 :35 AM EDT Last Filed Vital Signs Vital Sign Reading Time Taken Comments Blood Pressure 143/91 07/05/2024 10:22 AM EST didnt take his meds today Pulse 80 07/05/2024 10:22 AM EST Temperature 36.1 ??C (97 ??F) 07/05/2024 10: 22 AM EST Respiratory Rate 18 07/05/2024 10:2 2 AM EST Oxygen Saturation 96% 07/05/2024 10: 22 AM EST Inhaled Oxygen Concentration - - Weight 94.1 kg (207 lb 6.4 oz) 07/05/2024 10:22 AM EST Height 167.6 cm (5' 6 ) 07/05/2024 10:2 2 AM EST Body Mass Index 33.48 07/05/2024 10:22 AM EST Plan of Treatment Upcoming Encounters Date Type Department Care Team (Late st Contact Info) Description 08/23/2024 10:00 AM EDT Telemedicine [facility] MEDICINE [address] [place], [place] [phone] Riya Ambrocio MD [address] [place], [place] [phone] Health Maintenance Due Date Last Done Comments CT Colonography 1966 Colonoscopy 1966 Colorectal Cancer Screening 1966 FIT DNA/Cologuard 1966 FIT 1966 FOBT 1966 Sigmoidoscopy 1966 DTaP/Tdap/Td Vaccines (1 - Tdap) 1985 Hepatitis B Vaccines (1 of 3 - 19+ 3-dose series) 1985 Pneumococcal Vaccine: 50+ Years (1 of 1 - PCV) 2016 Zoster Vaccines (1 of 2) 2016 COVID-19 Vaccine ( season) 2024 12/12/2021, 05/21/2021, 10/14/2020, Additional history exists Influenza Vaccine (#1) 2024 Dental Oral Exam 04/30/2024 10/28/2023, 09/12/2021 Dental Prophylaxis 06/01/2024 11/30/2023, 1 , 09/16/2021 Depression Screening 10/26/2024 2023, 10/27/19 24 Dental X-Ray: Bitewings 10/28/2024 10/28/2023, 09/12 Dental X-Ray: Full Mouth 12/17/2024 12/16/2021, 04/0 06/2021 Alcohol/Substance Use Screening 04/13/2025 04/13/2024 SDOH Screening 06/23/2025 06/23/2024 Tobacco Screening 07/05/2025 07/05/2024 Lipid Panel 04/16/2027 04/16/2022 RSV Patients and Patients Aged 60 years or older (1 - 1-dose 75+ series) 2041 HIV Screening Completed 12/09/2022 Hepatitis C Screening Completed 12/09/2022 HIB Vaccines Aged Out No longer eligi ble based on patient's age to complete this topic HPV Vaccines Aged Out No longer eligi ble based on patient's age to complete this topic Hepatitis A Vaccines Aged Out No long er eligible based on patient's age to complete this topic IPV Vaccines Aged Out No longer eligi ble based on patient's age to complete this topic Meningococcal Vaccine Aged Out No kirsty cherrie eligible based on patient's age to complete this topic RSV under 20 months Aged Out No longe r eligible based on patient's age to complete this topic Rotavirus Vaccines Aged Out No longer eligible based on patient's age to complete this topic Procedures Procedure Name Priority Date/Time Associated Diagnosis Comments MR CERVICAL SPINE WO CONTRAST Routine 07/19/2024 7:03 PM EST Cervicalgia PROPHYLAXIS - ADULT Routine 11/30/2023 1 0:00 AM EDT Periodontal disease Dental calculus Gingival bleeding BITEWINGS - 4 RADIOGRAPHIC IMAGES Routine 10/28/2023 1:00 PM EDT Periodontal disease Dental calculus Missing teeth, acquired PERIODIC ORAL EVALUATION - ESTABLISHED PATIENT Routine 10/28/2023 1:00 PM EDT HEPATITIS C AB W/REFL TO HCV RNA, QN, PCR Routine 12/09/2022 10:08 AM EDT Primary hypertension HIV 1/2 ANTIGEN/ANTIBODY, FOURTH GENERATION W/RFL Routine 12/09/2022 10:08 AM EDT Primary hypertension LIPID PANEL, STANDARD Routine 04/16/2022 3:36 PM EDT PANORAMIC RADIOGRAPHIC IMAGE Routine 12/16/2021 12:00 AM EDT from Last 3 Months or Most Recently Relevant to Health Maintenance Results * MR Cervical Spine w/o Contrast (07/19/2024 7:03 PM EST) Anatomical Region Laterality Modality Spine, C-spine Magnetic Resonan ce 07/19/2024 7:03 PM EST Narrative 07/20/2024 8:25 AM EST ? [facility] ?[address] ?[place] [address] ? Magnetic Resonance Report ? Signed ? Patient: HuertaSharan Chaudhry ?MR#: ?? [id number] ? : 1965 ?Acct:[id number] ? Age/Sex: 58 / M ?ADM Date: 07/19/24 ? Loc: HO.MRI ? Attending Dr: Riya Bonilla MD ? Ordering Physician: Riya Ambrocio MD ?? Date of Service: 07/19/24 ?? Procedure(s): MR cervical spine wo con ?? Accession Number(s): [id number] ? cc: Riya Ambrocio MD ? EXAMINATION: ?? MR CERVICAL SPINE WITHOUT CONTRAST ? CLINICAL INFORMATION: ?? Persistent neck pain. ? COMPARISON: ?? None available. ? TECHNIQUE: ?? MRI of the cervical spine was obtained using routine sequences without ?? contrast. ? FINDINGS: ?? Craniocervical junction is intact. ?? No bone marrow STIR signal abnormality. ?? Marginal osteophyte formation and disc desiccation at C5-6 and to a ?? lesser extent C6-7. ?? Reverse curvature apex at C5-6. 1 mm retrolisthesis C5-6. ?? 1 mm anterolisthesis C6-7 and likely C4-5. ?? The cervical spinal cord signal is normal in ? C2-3: ?? No disc herniation. No neuroforamina stenosis. The C3-4: ?? No disc herniation. No neuroforamina stenosis. ? C4-5: ?? Broad-based disc osteophyte complex examination. No cord compression. ?? No neuroforamina stenosis. ? C5-6: ?? Broad-based disc osteophyte complex formation resulting in ventral CSF ?? effacement of the thecal sac. Flattening of the spinal cord. Facet ?? joint hypertrophy. Bilateral neuroforamina stenosis. ? C6-7: ?? Central disc osteophyte complex formation. No cord compression. No ?? neuroforamina stenosis. No C7-T1: ?? Broad-based disc osteophyte complex formation. No cord compression. No ?? neuroforamina stenosis. ? Flow-void signal within the main vessels is normal. Codominant ?? vertebral arteries. ?? No prevertebral compartment hematoma, mass or fluid collection. ? MR/MR cervical spine wo con ?? IMPRESSION: ?? Cervical spondylosis C5-6 resulting in central spinal canal and ?? bilateral neuroforamina stenosis without cord edema and or myelopathy. ?? Cervical spondylosis C4-5 and C6-7 without cord compression or ?? neuroforamina stenosis. ? Electronically signed by: ??Hema Granda MD ??07/20/2024 08:21 AM ?? EST RP ? Dictated By: ?Hema Rivero MD ? Signed By: ?<Electronically signed by Hema Chatterjee MD in OV> ? 07/20/24 0821 ? DD/ 1903 ? TD/TT: 07/19/24 193 ? Heel Shaver: ? Procedure Note Donyobani, Image - 07/20/2024 [place] [address] Magnetic Resonance Report Signed Patient: Sharan Becerra AMR#: [id number] : 1965Acct:[id number] Age/Sex: 58 / MADM Date: 07/19/24 Loc: HO.MRI Attending Dr: iRya Bonilla MD Ordering Physician: Riya Ambrocio MD Date of Service: 07/19/24 Procedure(s): MR cervical spine wo con Accession Number(s): [id number] cc: Riya Ambrocio MD EXAMINATION: MR CERVICAL SPINE WITHOUT CONTRAST CLINICAL INFORMATION: Persistent neck pain. COMPARISON: None available. TECHNIQUE: MRI of the cervical spine was obtained using routine sequences without contrast. FINDINGS: Craniocervical junction is intact. No bone marrow STIR signal abnormality. Marginal osteophyte formation and disc desiccation at C5-6 and to a lesser extent C6-7. Reverse curvature apex at C5-6. 1 mm retrolisthesis C5-6. 1 mm anterolisthesis C6-7 and likely C4-5. The cervical spinal cord signal is normal in C2-3: No disc herniation. No neuroforamina stenosis. The C3-4: No disc herniation. No neuroforamina stenosis. C4-5: Broad-based disc osteophyte complex examination. No cord compression. No neuroforamina stenosis. C5-6: Broad-based disc osteophyte complex formation resulting in ventral CSF effacement of the thecal sac. Flattening of the spinal cord. Facet joint hypertrophy. Bilateral neuroforamina stenosis. C6-7: Central disc osteophyte complex formation. No cord compression. No neuroforamina stenosis. No C7-T1: Broad-based disc osteophyte complex formation. No cord compression. No neuroforamina stenosis. Flow-void signal within the main vessels is normal. Codominant vertebral arteries. No prevertebral compartment hematoma, mass or fluid collection. MR/MR cervical spine wo con IMPRESSION: Cervical spondylosis C5-6 resulting in central spinal canal and bilateral neuroforamina stenosis without cord edema and or myelopathy. Cervical spondylosis C4-5 and C6-7 without cord compression or neuroforamina stenosis. Electronically signed by: Hema Granda MD 07/20/2024 08:21 AM EST Dictated By: Hema Rivero MD Signed By: <Electronically signed by Hema Chatterjee MDin OV> 07/20/24 0821 DD/ 02 TD/TT: 07/19/24 193 Heel Shaver: Riya Bonilla MD IM MRI PROCEDURES Fi nal Result * Hepatitis C Antibody with Reflex to HCV, RNA, Quantitative, Real-Time PCR (12/09/2022 10:08 AM EDT) Hepatitis C Antibody NON-REACT BRIAN NON-REACT BRIAN [email or web address] Comment: HCV antibody was non-reactive. There is no laboratory evidence of HCV infection. In most cases, no further action is required. However, if recent HCV exposure is suspected, a test for HCV RNA (test code 10894) is suggested. For additional information please refer to http://[employer]car.[facility]/faq/BMB80n3 (This link is being provided for informational/ educational purposes only.) Blood Venous blood specimen / Unknown 12/09/2022 10:08 AM EDT 12/09/2022 10:09 AM EDT Narrative [facility] - 12/10/2022 5:39 PM EDT FASTING:NO FASTING: NO us Riya Bonilla MD LAB BLOOD ORDERABLES Final Result [facility] [address], [place] [address] [email or web address] [place] [employer] [facility] [address] [place] [address] * HIV-1/2 Antigen and Antibodies, Fourth Generation, with Reflexes (12/09/2022 10:08 AM EDT) [facility] HIV Antigen/Antibody, 4th Generation NON-REAC TIVE NON-REAC TIVE [facility] [place] [facility] Comment: HIV-1 antigen and HIV-1/HIV-2 antibodies were not detected. There is no laboratory evidence of HIV infection. PLEASE NOTE: This information has been disclosed to you from records whose confidentiality may be protected by state law. ??If your state requires such protection, then the state law prohibits you from making any further disclosure of the information without the specific written consent of the person to whom it pertains, or as otherwise permitted by law. A general authorization for the release of medical or other information is NOT sufficient for this purpose. ?? For additional information please refer to http://[employer]/faq/ONO526 (This link is being provided for informational/ educational purposes only.) The performance of this assay has not been clinically validated in patients less than 2 years old. Blood Venous blood specimen / Unknown 12/09/2022 10:08 AM EDT 12/09/2022 10:09 AM EDT Narrative [facility] - 12/10/2022 5:39 PM EDT FASTING:NO FASTING: NO Riya Bonilla MD LAB BLOOD ORDERABLES Final Result [facility] [address], [place] [address] [email or web address] [address] [place] [address] * (ABNORMAL) LIPID PANEL, STANDARD (04/16/2022 3:36 PM EDT) Chol/HDLC Ratio 6.6(H) <5.0 (calc) [facility] Cholesterol, Total 179 <200 mg/dL [facility] HDL Cholesterol 27(L) > OR = 40 mg/dL [facility] LDL Cholesterol SEE COMMENT mg/dL (calc) [facility] Comment: ?? LDL cholesterol not calculated. Triglyceride levels greater than 400 mg/dL invalidate calculated LDL results. ?? Reference range: <100 ?? Desirable range <100 mg/dL for primary prevention; ?? <70 mg/dL for patients with CHD or diabetic patients ?? with > or = 2 CHD risk factors. ?? LDL-C is now calculated using the Jatin-Zuluaga ?? calculation, which is a validated novel method providing ?? better accuracy than the Friedewald equation in the ?? estimation of LDL-C. ?? Jatin KUO et al. DAISY. 2013;310(19): 6701-9701 ?? (http://education.[employer]/faq/DZE928) Non-HDL Cholesterol 152(H) <130 mg/dL (calc) [facility] Comment: For patients with diabetes plus 1 major ASCVD risk ?? factor, treating to a non-HDL-C goal of <100 mg/dL ?? (LDL-C of <70 mg/dL) is considered a therapeutic ?? option. Triglycerides 506(H) <150 mg/dL [facility] Comment: ?? If a non-fasting specimen was collected, consider repeat triglyceride testing on a fasting specimen if clinically indicated. ?? Mona et al. J. of Clin. Lipidol. 2015;9:129-169. ? There is increased risk of pancreatitis when the ?? triglyceride concentration is very high ?? (> or = 500 mg/dL, especially if > or = 1000 mg/dL). ?? Mona et al. J. of Clin. Lipidol. 2015;9:129-169. ?? 04/16/2022 3:36 PM EDT Riya Bonilla MD LAB BLOOD ORDERABLES Final Result [facility] from Last 3 Months or Most Recently Relevant to Health Maintenance Insurance HSN PARTIAL [facility] [place] [address] DENTAL - HSN PARTIAL (MEDICAID) Care Teams Airway Traffic Controller Relationship Specialty Start Date End Date Riya Ambrocio MD [address] [place] [id number] PCP - General Family Medicine 12/23/18
--- OUTSIDE RECORDS SUMMARY | 2024-08-10 06:48 | XMS_ITS | Encounter Summary ---
Author Organization [facility] Address [address] [place] [address] Care Team Providers Care Sheet Heater Helper Name Role Phone Riya Ambrocio MD Primary Care Provide r Encounter Details Date Type Department Care Team (Latest Contact Info) Description 09/16/2021 Abstract [facility] CONVERSIONS Dental, Provider, DDS Social History Tobacco Use Types Packs/Day Years Used Date Smoking Tobacco: Never Assessed Sex and Gender Information Value Date Recorded Sex Assigned at Male 04/13/2022 10:35 AM EDT Legal Sex Male 10:35 AM EDT Gender Identity Male 04/13/2022 10:35 AM EDT Sexual Orientation Straight 04/13/2022 10 :35 AM EDT documented as of this encounter Plan of Treatment Upcoming Encounters Date Type Department Care Team (Late st Contact Info) Description 08/23/2024 10:00 AM EDT Telemedicine [facility] MEDICINE [address] [place] [address] Riya Ambrocio MD [address] [place] [address] documented as of this encounter Visit Diagnoses Not on filedocumented in this encounter Care Teams Sheet Heater Helper Relationship Specialty Start Date End Date Riya Ambrocio MD [address] [place], [place] [phone] PCP - General Family Medicine 12/23/18 documented as of this encounter
--- OUTSIDE RECORDS SUMMARY | 2024-08-10 06:48 | XMS_ITS | Encounter Summary ---
Author Organization [employer] Address [address] [facility] 7t [place] [address] Care Team Providers Care Tax Attorney Name Role Phone Riya Ambrocio MD Primary Care Provide r Reason for Visit * Reason Onset Date Comments Prior Authorization 07/07/2024 DAVEY Teixeiraes t: Phenterimine Encounter Details Date Type Department Care Team (Late st Contact Info) Description 07/07/2024 Telephone [facility] MEDICINE [address] [place], [place] [phone] Riya Ambrocio MD [address] [place], [place] [phone] Prior Authorization (DAVEY ADDISON Request: Phenterimine) Social History Tobacco Use Types Packs/Day Years Used Date Smoking Tobacco: Never Passive Smoke Exposure: Never Smokeless Tobacco: Never Alcohol Use Standard Drinks/Week Comments Never 0 [...] AM EDT documented as of this encounter Miscellaneous Notes * Telephone Encounter - George Hernandez RN - 07/14/2024 9:49 AM EST Call placed to [facility] pharmacy to inquire if phentermine medication was filled already and does not require a PA. Form received from [employer] plan sent to scan. * Telephone Encounter - Cathryn Forman - 07/13/2024 11:49 AM EST PA for phentermine signed and faxed to [facility] . Confirmation received and sent to scan. If patient calls to check status on above, please advise them to contact [facility] [phone] . * Telephone Encounter - Cathryn Forman - 07/07/2024 2:21 PM EST PA for Phentermine from [facility] placed on PCP desk for signature. documented in this encounter Plan of Treatment Upcoming Encounters Date Type Department Care Team (Late st Contact Info) Description 08/23/2024 10:00 AM EDT Telemedicine [facility] MEDICINE [address] [place] [address] Riya Ambrocio MD [address] [place] [address] documented as of this encounter Visit Diagnoses Not on filedocumented in this encounter Additional Health Concerns Assessment Noted Time PHQ-9 Depression Total Score: 0 10/27/19 9:27 AM EDT documented as of this encounter Care Teams Tax Attorney Relationship Specialty Start Date End Date Riya Ambrocio MD [address] [place] [address] PCP - General Family Medicine 12/23/18 documented as of this encounter
--- OUTSIDE RECORDS SUMMARY | 2024-08-10 06:48 | XMS_ITS | Encounter Summary ---
Author Organization [employer] Address [address] [facility] 7t [place] [address] Care Team Providers Care Weapons Mechanic Name Role Phone Riya Ambrocio MD Primary Care Provide r Reason for Visit * Reason Onset Date Comments Call Back Request 08/09/2024 Encounter Details Date Type Department Care Team ([facility] st Contact Info) Description 08/09/2024 Telephone [facility] MEDICINE [address] [place], [place] [phone] Riya Ambrocio MD [address] [place] [address] Call Back Request Social History Tobacco Use Types Packs/Day Years [...] encounter Miscellaneous Notes * Telephone Encounter - Heather Rushing RN - 08/09/2024 11:20 AM EST TC placed to patient [phone] via [employer] ([employer] #[id number]) in regards to below message. Patient reports he is scheduled for an appointment with urologist however he does not recall the date and time of the appointment. Per chart review, patient was referred to [facility] urology in 03/2024. RN advised patient he will need to call their office to inquire on his appointment date and time. Patient reports he is unable to take down phone number at this time as he is driving. Patient reports he will return call to [facility] to obtain phone number when he is not driving anymore. When patient returns call, please advise patient to call [phone] for appointment details. Thank you * Telephone Encounter - Vasiliy Pablito - 08/09/2024 10:33 AM EST Tc from pt requesting a callback to discuss information about a referral , pt states he's concerns don't match with referral for physical therapy as it has to do with pt prostate. documented in this encounter Plan of Treatment Upcoming Encounters Date Type Department Care Team (Late st Contact Info) Description 08/23/2024 10:00 AM EDT Telemedicine [facility] MEDICINE [address] [place] [address] Riya Ambrocio MD [address] [place] [phone] documented as of this encounter Visit Diagnoses Not on filedocumented in this encounter Additional Health Concerns Assessment Noted Time PHQ-9 Depression Total Score: 0 10/27/19 24 9:27 AM EDT documented as of this encounter Care Teams Weapons Mechanic Relationship Specialty Start Date End Date Riya Ambrocio MD [address] [place] [id number] PCP - General Family Medicine 12/23/18 documented as of this encounter
--- OUTSIDE RECORDS SUMMARY | 2024-08-10 06:48 | XMS_ITS | Encounter Summary ---
Author Organization [employer] [facility] Address [address] [facility] 7t [place] [address] Care Team Providers Care Track Walker Name Role Phone Riya Ambrocio MD Primary Care Provide r Reason for Visit * Reason Onset Date Comments Results 07/21/2024 Encounter Details Date Type Department Care Team ([facility] st Contact Info) Description 07/21/2024 Telephone [facility] MEDICINE [address] [place], [place] [phone] Sharri Chatterjee RN [address] [place], [place] [phone] Results Social History Tobacco Use Types Packs/Day Years [...] encounter Miscellaneous Notes * Telephone Encounter - Sharri Chatterjee RN - 07/21/2024 9:45 AM EST T/C placed to pt re below imaging results and POC. Informed MRI showed age related wear and tear ofthe cartilage and bones in his spine. Explained that as we get older, bones and joints tend to deteriorate which is what is happening. Advised he follow up with PM. Looks like he saw PM 07/13 and theyare planning fluoroscopy guided diagnostic right C3-C4 C5 medial branch blocks with local anesthetic. Informed PM should be able to see MRI results in their system for his next appt with them. Pt verbalized understanding and denied having any further questions or concerns at this time. * Telephone Encounter - Sharri Chatterjee RN - 07/21/2024 9:39 AM EST ----- Message from Riya Bonilla MD sent at 07/20/2024 4:48 PM EST ----- Please let patient know I reviewed his MRI, he has spondylosis on his neck, please advise to f/u with pain medicine, referral was placed the day of his appointment thank you documented in this encounter Plan of Treatment Upcoming Encounters Date Type Department Care Team (Late st Contact Info) Description 08/23/2024 10:00 AM EDT Telemedicine [facility] MEDICINE [address] [place] [phone] Riya Ambrocio MD [address] [place], [place] [phone] documented as of this encounter Visit Diagnoses Not on filedocumented in this encounter Additional Health Concerns Assessment Noted Time PHQ-9 Depression Total Score: 0 10/27/19 24 9:27 AM EDT documented as of this encounter Care Teams Track Walker Relationship Specialty Start Date End Date Riya Ambrocio MD [address] [place] [id number] PCP - General Family Medicine 12/23/18 documented as of this encounter
== END 2024-08-10 06:46 | disposition home or self-care (01) ==
LOC: CF 06:45
PROVIDERS: Visit Provider Internal Medicine
DX: Z13.89 Encounter for screening for other disorder (principal)

== ENCOUNTER 2024-09-07 08:25 | Outpatient (AMB) | payer OTHER, SELFPAY ==
--- NOTE | 2024-09-07 08:43 | A.OFFVIS_ITS ---
Intake Visit Reasons: Pain During Urination Intake Note: Patient presents today for pain with urination Urology Medications: Vitamin B6 Blood Thinner: none PVR: 61ml's Dementia Program Director Required: Yes Dementia Program Director Services: Dementia Program Director Present Dementia Program Director Name: [phone] Accompanied by: Self / Same As Patient Allergies No Known Allergies [No Known Allergies*] Allergy (Verified 09/07/24 09:12) Medication List - Last Reconciled 09/07/24 by MALLIKA Freitas amitriptyline 20 mg (2 x 10 mg) PO BEDTIME citalopram 20 mg PO QAM hydrocortisone 2.5% (Proctosol HC) 1 appl ID BEDTIME PRN lisinopril 5 mg PO QAM psyllium husk (with sugar) 3 gram/7 gram (Metamucil (with sugar)) 1 tbsp PO DAILY 30 days pyridoxine (vitamin B6) 100 mg PO DAILY 90 days sulfamethoxazole-trimethoprim 800-160 mg (Bactrim DS) 1 tab PO BID 14 days HPI Comments Details: Sharan is a very pleasant 58-year-old Slovenian-speaking male patient of Dr. Bonilla. He has a past medical history of anxiety, depression, and hypertension. He presents to the office today for dysuria he has been experiencing over the last 2 months. Of note, patient was last seen over a year ago at which time he was treated for prostatitis. He reports after completion of his antibiotic therapy he had been doing well up until 2 months ago when he started experiencing dysuria and difficulty initiating urinary stream. He feels symptoms are worse at night. CONOR performed boggy prostate noted. Patient with a previous history of a microgen via prostate message 07/07 noted finegoldia magna, Enterococcus prevotii, and Enterococcus senegalensis. In office urinalysis results reviewed with the patient today. PVR 61ml's. He also has a history of nephrolithiasis previous workup has included a retroperitoneal ultrasound 02/03 noting right kidney with no calculi, lesions, and or hydronephrosis noted. Left kidney with a 0.9 cm simple cyst in the lower pole for which no imaging follow- up is recommended per radiology report. There is a 0.5 cm nonobstructive calculus in the mid to lower pole. The bladder is well distended and normal. Prostate volume is approximately 40 mL. PSA 04/05 1.8. Discussed at length potential causes for prostatitis as well as for lower urinary tract symptoms patient is experiencing. He otherwise denies hematuria, foul smelling urine, changes to urinary stream, flank pain, fever, and or chills. We discussed importance of following up as planned as during last office visit recommendations were made for 1 month follow-up however this was never followed through. He otherwise offers no other issues or concerns at this time. Plan The treatment plan involves administering antibiotics twice daily for two weeks to address the prostatitis. This course is chosen to target and clear the prostate infection, which is suspected to be present. I recommend avoiding exacerbating factors like caffeine, alcohol, and spicy foods to help manage symptoms. As part of the follow-up protocol, blood work will be scheduled closer to the next appointment to monitor prostate-related markers accurately after inflammation resolves. The patient will also repeat an ultrasound exam to track any developments regarding his history of kidney stones. The patient agreed to these proposed steps after discussing all options. Patient was informed and verbally consented to the use of an ambient scribe for clinic note documentation during this visit. Discussion Notes During the visit, I explained to the patient the diagnosis of prostatitis, likely due to the tenderness and soft consistency assessed on examination. I detailed the benefits of antibiotic therapy, emphasizing its necessity to clear any infection potentially causing the symptoms. Risks associated with untreated prostatitis and the long-term benefits of compliance with the prescribed regimen were discussed thoroughly. Lifestyle changes, including dietary adjustments, were recommended to alleviate symptom exacerbation. I underscored the importance of follow-up diagnostics, especially blood work closer to the follow-up appointment, to ensure conditions are appropriately managed. Additionally, the significance of monitoring his kidney stone history via repeat ultrasound was discussed. Informed consent was obtained after deliberating over the plan and providing answers to any patient queries. [facility] Medical History Hemorrhoids Class 1 obesity due to excess calories without serious comorbidity in adult Primary hypertension Snoring Mixed anxiety and depressive disorder Benign prostatic hyperplasia with nocturia Surgical History Hx of colonoscopy History of kidney surgery Social History Household Members: Family Alcohol intake: never Patient Tobacco Use Status: Never used Tobacco Review of Systems Const Reports as per HPI Eyes Reports no additional complaints ENT Reports no additional complaints Card Reports as per HPI Resp Reports no additional complaints GI Reports no additional complaints Reports as per HPI Musc Reports no additional complaints Neuro Reports no additional complaints Psych Reports as per HPI Endo Reports no additional complaints Aller/Immun Reports no additional complaints Physical Exam Const General: cooperative, healthy appearing, comfortable, no acute distress, well developed, alert and awake Orientation/consciousness: patient oriented x3 Limitations: no limitations HEENT Head: Yes normal to inspection, Yes normocephalic and Yes atraumatic Ears: hearing grossly normal bilaterally Eyes General: appearance normal, both eyes and all related structures Neck Neck: Yes normal visual inspection and Yes trachea midline Chest Chest palpation & inspection: normal inspection of the chest Resp Effort & Inspection: normal respiratory effort and able to speak in complete sentences Cardio Rate: regular rate GI Inspection: Yes normal to inspection Other: As per HPI General: Yes no CVA tenderness Back/Spine/Pelvis Back: no CVA tenderness Skin General skin exam: no rashes or lesions noted Neuro General: patient oriented x3 Extrem General: Yes normal to inspection Psych Appearance: grossly normal and well kempt Mental Status: mental status grossly normal Speech and movement: Normal speech and movement present and Clear speech present Affect: normal affect Attitude: cooperative Thought process: Normal thought process present Thought content: Normal thought content present Insight: Fair insight present (Psych) Judgement: Fair judgement present (Psych) Office Procedures Post Void Residual Post Residual Void Post Void Residual (PVR): 61 [id number] Void Residual by ultrasound Results AMB Urinalysis, Automated UA Leukoctes 0 Jesús/uL Last Edit by Juan Downey on 09/07/24 09:00 UA Nitrite Last Edit by Juan Downey on 09/07/24 09:00 UA Urobilinogen 0.2 mg/dL Last Edit by Juan Downey on 09/07/24 09:00 UA Protein 15 mg/dL Last Edit by Juan Apontejos on 09/07/24 09:00 UA pH 6.0 Last Edit by Juan Apontejos on 09/07/24 09:00 UA Blood 25 Juan/uL Last Edit by Juan Apontejos on 09/07/24 09:00 UA Specific [place] 1.025 Last Edit by Juan Apontejos on 09/07/24 09:00 UA Ketone Last Edit by Juan Aopntejos on 09/07/24 09:00 UA Bilirubin 0 mg/dL Last Edit by Juan Apontejos on 09/07/24 09:00 UA Glucose 0 mg/dL Last Edit by Marshallhilda Fayjos on 09/07/24 09:00 Results Reviewed Results Reviewed: Laboratory Last Values Urine pH (Auto) 6.0 09/07/24 08:58 Specific [place] (Auto) 1.025 09/07/24 08:58 Urine Protein (Auto) 15 mg/dL 09/07/24 08:58 Glucose (UA)(Auto) 0 mg/dL 09/07/24 08:58 Urine Blood (Auto) 25 Juan/uL 09/07/24 08:58 Urine Bilirubin (Auto) 0 mg/dL 09/07/24 08:58 Urine Urobilinogen (Auto) 0.2 mg/dL 09/07/24 08:58 Leukocyte Esterase (Auto) 0 Jesús/uL 09/07/24 08:58 Assessment & Plan Assessment & Plan (1) Prostatitis: Code(s): N41.9 - Inflammatory disease of prostate, unspecified Category: Medical (2) Nephrolithiasis: Code(s): N20.0 - Calculus of kidney Category: Medical (3) Nocturia: Code(s): R35.1 - Nocturia Category: Medical (4) Incomplete bladder emptying: Code(s): R33.9 - Retention of urine, unspecified Category: Medical (5) Dysuria: Code(s): R30.0 - Dysuria Category: Medical Plan In office office results with the patient today; as noted above. PVR 61 mL. CONOR performed boggy prostate noted; we discussed potential causes and affects of prostatitis Start Bactrim as discussed and prescribed Will obtain PSA 6-8 weeks status post completion antibiotic therapy. Will obtain retroperitoneal ultrasound for further assessment evaluation. We discussed importance of following up as planned for continuity of care Follow-up in 2-3 months with imaging and lab to be completed prior; or sooner with any issues, concerns, and or questions. Orders: Orders US retroperitoneal comp Today N20.0 - Calculus of kidney, N41.9 - Inflammatory disease of prostate, unspecified AMB Urinalysis Automated Today Z13.9 - Encounter for screening, unspecified AMB Post Void Residual by ultrasound Today R35.1 - Nocturia Prostate Specific Antigen 6 Weeks N41.9 - Inflammatory disease of prostate, unspecified Medications: New sulfamethoxazole-trimethoprim 800-160 mg (Bactrim DS) 1 tab PO BID 14 days 28 tabs 0RF N39.0 - Urinary tract infection, site not specified Patient Instructions: The patient had an opportunity to ask questions regarding the treatment plan. All questions were answered. Physical exam, labs, and imaging were discussed and reviewed in detail. As well as risks, benefits, and discussion of treatment choices. No major barriers to understanding were identified. The patient expressed understanding and agreement with the above treatment plan. The patient was made aware they should contact our office by phone for worsening of their current condition, the appearance of new symptoms, or with any questions or concerns. Compliance is encouraged with any medications and follow up testing that is ordered. It is a privilege to be allowed the opportunity to participate in? your urological care.? Again, if you have any questions or concerns If you have any questions or concerns please do not hesitate to contact me. The office is [phone]. This note is constructed using voice recognition software. While every effort has been made to ensure accuracy plant specialist errors may have been included. Yours sincerely, MALLIKA Freitas Coding Level of Care Code Est Pt Level 4 (27168) Diagnoses Prostatitis N41.9 Nephrolithiasis N20.0 Nocturia R35.1 Incomplete bladder emptying R33.9 Dysuria R30.0 CPT Codes Post Residual Void - PVR CPT Code: 34288-Stze Void Residual by ultrasound ([id number])
--- OUTSIDE RECORDS SUMMARY | 2024-09-07 08:53 | XMS_ITS | Encounter Summary ---
Author Organization [employer] [facility] Address [address] [facility] 7t [place] [address] Care Team Providers Care Sales Closer Name Role Phone Riya Ambrocio MD Primary Care Provide r Encounter Details Date Type Department Care Team (Latest Contact Info) Description 09/16/2021 Abstract [facility] CONVERSIONS Dental, Provider, DDS Social [...] Care Team (Late st Contact Info) Description 10/18/2024 2:45 PM EDT Office Visit [facility] MEDICINE [address] [place] [address] Riya Ambrocio MD [address] [place] [address] documented as of this encounter Visit Diagnoses Not on filedocumented in this encounter Care Teams Sales Closer Relationship Specialty Start Date End Date Riya Ambrocio MD [address] [place], [place] [phone] PCP - General Family Medicine 12/23/18 documented as of this encounter
--- OUTSIDE RECORDS SUMMARY | 2024-09-07 08:53 | XMS_ITS | Encounter Summary ---
Author Organization [employer] Address [address] [place] [address] Care Team Providers Care Nursing Care Partner Name Role Phone Riya Ambrocio MD Primary Care Provide r Encounter Details Date Type Department Care Team (Late st Contact Info) Description 08/28/2024 Telephone [facility] MEDICINE [address] [place], [place] [phone] Carlee Kay LPN Social History Tobacco Use Types Packs/Day Years [...] encounter Miscellaneous Notes * Telephone Encounter - Mare Crandall MA - 08/31/2024 9:37 AM EDT PA has been signed by the PCP and faxed to [employer]. Form is sent in for scanning. * Telephone Encounter - Carlee Kay LPN - 08/28/2024 3:55 PM EDT PA for Zepbound completed and placed with Dr Myrtle Bonilla for signature documented in this encounter Plan of Treatment Upcoming Encounters Date Type Department Care Team (Late st Contact Info) Description 10/18/2024 2:45 PM EDT Office Visit [facility] MEDICINE [address] [place] [address] Riya Ambrocio MD [address] [place] [address] documented as of this encounter Visit Diagnoses Not on filedocumented in this encounter Additional Health Concerns Assessment Noted Time PHQ-9 Depression Total Score: 0 10/27/19 9:27 AM EDT documented as of this encounter Care Teams Nursing Care Partner Relationship Specialty Start Date End Date Riya Ambrocio MD [address] [place] [address] PCP - General Family Medicine 12/23/18 documented as of this encounter
--- OUTSIDE RECORDS SUMMARY | 2024-09-07 08:53 | XMS_ITS | Encounter Summary ---
Author Organization [employer] [facility] Address [address] [facility] 7t [place] [address] Care Team Providers Care Clinical Pharmacist Name Role Phone Riya Ambrocio MD Primary Care Provide r Encounter Details Date Type Department Care Team (Latest Contact Info) Description 08/23/2024 Travel Social History Tobacco Use Types Packs/Day Years [...] Description 10/18/2024 2:45 PM EDT Office Visit [facility] MEDICINE [address] [place] [phone] Riya Ambrocio MD [address] [place], [place] [phone] documented as of this encounter Visit Diagnoses Not on filedocumented in this encounter Additional Health Concerns Assessment Noted Time PHQ-9 Depression Total Score: 0 10/27/19 24 9:27 AM EDT documented as of this encounter Care Teams Clinical Pharmacist Relationship Specialty Start Date End Date Riya Ambrocio MD [address] [place] [id number] PCP - General Family Medicine 12/23/18 documented as of this encounter
--- OUTSIDE RECORDS SUMMARY | 2024-09-07 08:53 | XMS_ITS | Encounter Summary ---
Author Organization [facility] Address [address] [facility] 7t [place] [address] Care Team Providers Care Construction Checker Name Role Phone Riya Ambrocio MD Primary Care Provide r Reason for Referral * Medications - Closed Specialty Diagnoses / Procedures Referred By Anna crum Referred To Contact Diagnoses Class 1 obesity due to excess calories with serious comorbidity and body mass index (BMI) of 33.0 to 33.9 in adult Riya Ambrocio MD [address] [place] [address] Phone: tel: fax: Referral ID Status Reason Start Date Expiration Date Visits Re quested Visits Authorized [id number] Closed 08/23/2024 08/23/2025 1 1 Encounter Details Date Type Department Care Team (Late st Contact Info) Description 08/23/2024 10:00 AM EDT Telemedicine [facility] MEDICINE [address] [place], [place] [phone] Riya Ambrocio MD [address] [place] [address] Class 1 obesity due to excess calories with serious comorbidity and body mass index (BMI) of 33.0 to 33.9 in adult (Primary Dx) Social History Tobacco Use Types Packs/Day Years [...] AM EDT documented as of this encounter Progress Notes * Riya Bonilla MD - 08/23/2024 10:00 AM EDT SUBJECTIVE: Sharan Venegas is a 58 y.o. year old male who presents for Follow up . Acute Concerns: Patient reports he tried medication for weight loss phentermine he took it for several days but states he did not tolerate medication because when he took the medication he was having anxiety, palpitations, and insomnia for this reason he had to stop the medication Patient went to pain management for his neck pain amitriptyline was prescribed for him and it is pending for him to have a test for diagnosis of his neck problem I advised to follow-up with them Social History Social History Narrative Not on file Patient Active Problem List Diagnosis Benign prostatic hyperplasia with nocturia Mixed anxiety and depressive disorder Snoring Primary hypertension Class 1 obesity due to excess calories without serious comorbidity in adult Other hemorrhoids Other constipation Colon cancer screening Seasonal allergies Witnessed episode of apnea Periodontal disease Dental calculus Missing teeth, acquired Generalized gingival recession, severe Gingival bleeding Fractured dental zoroastrian with loss of material Dysuria Nycturia Neck pain Cervicalgia Class 1 obesity due to excess calories with serious comorbidity and body mass index (BMI) of 33.0 to 33.9 in adult Bloating symptom No family history on file. Review of Systems Constitutional: Negative. HENT: Negative. Respiratory: Negative. Cardiovascular: Positive for palpitations. Negative for chest pain and leg swelling. Musculoskeletal: Positive for neck pain. Psychiatric/Behavioral: Positive for sleep disturbance. The patient is nervous/anxious. Follow Up: No follow-ups on file. Current Outpatient Medications on File Prior to Visit Medication Sig Dispense Refill acetaminophen (Tylenol) 325 MG tablet Take 1 tablet by mouth every 6 (six) hours. acetaminophen (Tylenol) 500 MG tablet Take 1 tablet by mouth in the morning and 1 tablet at noon and 1 tablet in the evening and 1 tablet before bedtime. Acetaminophen 500 MG capsule Take one to two tablets as needed for fever or pain every 6 hours 30 capsule 0 atorvastatin (Lipitor) 20 MG tablet Take 1 tablet (20 mg) by mouth Once per day. 90 tablet 1 baclofen (Lioresal) 10 MG tablet Take 1 tablet by mouth in the morning and 1 tablet in the evening. cholecalciferol (Vitamin D-3) 50 MCG (2000 UT) capsule take 1 capsule by Oral route every day 90 capsule 1 citalopram (CeleXA) 20 MG tablet Take 1 tablet (20 mg) by mouth Once per day. 90 tablet 1 EQ Allergy Relief, Cetirizine, 10 MG tablet Take 1 tablet by mouth once daily 90 tablet 0 ergocalciferol (Vitamin D-2) 1.25 MG (44513 UT) capsule take 1 capsule by oral route every week famotidine (Pepcid) 20 MG tablet Take 1 tablet by mouth every 12 (twelve) hours. fenofibrate (Triglide) 160 MG tablet Take 1 tablet (160 mg) by mouth in the morning. 90 tablet 1 fluticasone (Flonase) 50 MCG/ACT nasal spray Administer 1 spray into each nostril Once per day. 16 g 2 gabapentin (Neurontin) 100 MG capsule Take 3 capsules (300 mg) by mouth every 8 (eight) hours. 90 capsule 2 hydrocortisone (Anusol-HC) 2.5 % rectal cream Insert into the rectum 2 times daily. 28 g 1 ibuprofen 800 MG tablet Take 1 tablet by mouth every 8 (eight) hours. Ketotifen Fumarate 0.035 % solution Administer 1 drop into affected eye(s) every 12 (twelve) hours if needed (use if needed). INSTILL 1 DROP INTO EACH EYE TWICE A DAILY 10 mL 1 lisinopril 5 MG tablet Take 1 tablet (5 mg) by mouth Once per day. 90 tablet 1 olopatadine (Pataday) 0.2 % ophthalmic solution Administer 1 drop into affected eye(s) Once per day. 2.5 mL 2 psyllium (Metamucil) 33 % powder take 1 teaspoon by po route every day with large glass of water simethicone (Mylicon,Gas-X) 180 MG capsule Take 1 capsule (180 mg) by mouth if needed in the morning, at noon, in the evening, and at bedtime for flatulence (before meals as needed). 180 capsule 0 [DISCONTINUED] phentermine 37.5 MG capsule Take 1 capsule (37.5 mg) by mouth before breakfast. 30 capsule 0 No current facility-administered medications on file prior to visit. Problem List Items Addressed This Visit Class 1 obesity due to excess calories with serious comorbidity and body mass index (BMI) of 33.0 to 33.9 in adult - Primary I will discontinue phentermine and I will prescribe for patient zepbound to 0.5 mg once a week, extensive counseling about healthy diet and exercise done today Medication side effects were reviewed with patient Relevant Medications Tirzepatide-Weight Management (Zepbound) 2.5 MG/0.5ML solution auto-injector documented in this encounter Miscellaneous Notes * Assessment & Plan Note - Riya Bonilla MD - 08/23/2024 10:30 AM EDT Associated Problem(s): Class 1 obesity due to excess calories with serious comorbidity and body mass index (BMI) of 33.0 to 33.9 in adult I will discontinue phentermine and I will prescribe for patient zepbound to 0.5 mg once a week, extensive counseling about healthy diet and exercise done today Medication side effects were reviewed with patient documented in this encounter Plan of Treatment Upcoming Encounters Date Type Department Care Team (Late st Contact Info) Description 10/18/2024 2:45 PM EDT Office Visit [facility] MEDICINE [address] [place] [address] [phone] Riya Ambrocio MD [address] [place] [address] documented as of this encounter Visit Diagnoses Diagnosis Class 1 obesity due to excess calories with serious comorbidity and body mass index (BMI) of 33.0 to 33.9 in adult- Primary documented in this encounter Additional Health Concerns Assessment Noted Time PHQ-9 Depression Total Score: 0 10/27/19 24 9:27 AM EDT documented as of this encounter Care Teams Construction Checker Relationship Specialty Start Date End Date Riya Ambrocio MD [address] [place] [phone] PCP - General Family Medicine 12/23/18 documented as of this encounter
--- OUTSIDE RECORDS SUMMARY | 2024-09-07 08:53 | XMS_ITS | Encounter Summary ---
Author Organization [facility] Address [address] [facility] 7t [place] [address] Care Team Providers Care Autism Tutor Name Role Phone Riya Ambrocio MD Primary Care Provide r Reason for Visit * Reason Onset Date Comments Prior Authorization 09/06/2024 Encounter Details Date Type Department Care Team ([facility] st Contact Info) Description 09/06/2024 Telephone [facility] MEDICINE [address] [place], [place] [phone] Riya Ambrocio MD [address] [place] [address] Prior Authorization Social History Tobacco Use Types Packs/Day Years [...] encounter Miscellaneous Notes * Telephone Encounter - Cathryn Forman - 09/06/2024 3:02 PM EDT PA sent to Plan on 09/01/24. ----- Message from Riya Bonilla MD sent at 08/23/2024 10:31 AM EDT ----- Please generate PA for zepbound thank you documented in this encounter Plan of Treatment Upcoming Encounters Date Type Department Care Team (Late st Contact Info) Description 10/18/2024 2:45 PM EDT Office Visit [facility] MEDICINE [address] [place], [place] [phone] Riya Ambrocio MD [address] [place] [address] documented as of this encounter Visit Diagnoses Not on filedocumented in this encounter Additional Health Concerns Assessment Noted Time PHQ-9 Depression Total Score: 0 10/27/19 24 9:27 AM EDT documented as of this encounter Care Teams Autism Tutor Relationship Specialty Start Date End Date Riya Ambrocio MD [address] [place] [address] PCP - General Family Medicine 12/23/18 documented as of this encounter
--- OUTSIDE RECORDS SUMMARY | 2024-09-07 08:53 | XMS_ITS | Clinical Summary ---
Author Organization [facility] Address [address] [facility] 7t [place] [address] Care Team Providers Care Manager Merchandising Name Role Phone Riya Ambrocio MD Primary Care Provide r Allergies No known active allergies Medications fenofibrate (Triglide) 160 MG tablet Take 1 tablet (160 mg) by mouth in the morning. 90 tablet 1 10/07/19 23 Active cholecalciferol (Vitamin D-3) 50 MCG (2000 UT) capsule take 1 capsule by Oral route every day 90 capsule 1 10/07/19 23 Active Acetaminophen 500 MG capsule Take one to two tablets as needed for fever or pain every 6 hours 30 capsule 10/20/19 23 Active acetaminophen (Tylenol) 500 MG tablet Take 1 tablet by mouth in the morning and 1 tablet at noon and 1 tablet in the evening and 1 tablet before bedtime. 03/05/20 22 Active acetaminophen (Tylenol) 325 MG tablet Take 1 tablet by mouth every 6 (six) hours. 12/17/19 22 Active baclofen (Lioresal) 10 MG tablet Take 1 tablet by mouth in the morning and 1 tablet in the evening. 03/05/20 22 Active ergocalciferol (Vitamin D-2) 1.25 MG (15464 UT) capsule take 1 capsule by oral route every week 12/30/19 19 Active famotidine (Pepcid) 20 MG tablet Take 1 tablet by mouth every 12 (twelve) hours. 01/06/20 22 Active ibuprofen 800 MG tablet Take 1 tablet by mouth every 8 (eight) hours. 12/17/19 22 Active psyllium (Metamucil) 33 % powder take 1 teaspoon by po route every day with large glass of water 09/17/19 22 Active hydrocortisone (Anusol-HC) 2.5 % rectal creamIndications :Other hemorrhoids Insert into the rectum 2 times daily. 28 g 1 04/01/20 23 Active Ketotifen Fumarate 0.035 % solution Administer 1 drop into affected eye(s) every 12 (twelve) hours if needed (use if needed). INSTILL 1 DROP INTO EACH EYE TWICE A DAILY 10 mL 1 10/21/19 24 Active fluticasone (Flonase) 50 MCG/ACT nasal sprayIndications :Seasonal allergies Administer 1 spray into each nostril Once per day. 16 g 2 10/27/19 24 Active olopatadine (Pataday) 0.2 % ophthalmic solutionIndicati ons:Seasonal allergies Administer 1 drop into affected eye(s) Once per day. 2.5 mL 2 10/27/19 24 Active EQ Allergy Relief, Cetirizine, 10 MG tabletIndication s:Seasonal allergies Take 1 tablet by mouth once daily 90 tablet 01/19/20 24 Active gabapentin (Neurontin) 100 MG capsuleIndicatio ns:Neck pain Take 3 capsules (300 mg) by mouth every 8 (eight) hours. 90 capsule 2 04/13/20 24 025 Active lisinopril 5 MG tabletIndication s:Primary hypertension Take 1 tablet (5 mg) by mouth Once per day. 90 tablet 1 07/05/19 25 026 Active citalopram (CeleXA) 20 MG tabletIndication s:Mixed anxiety and depressive disorder Take 1 tablet (20 mg) by mouth Once per day. 90 tablet 1 07/05/19 25 025 Active atorvastatin (Lipitor) 20 MG tabletIndication s:Primary hypertension Take 1 tablet (20 mg) by mouth Once per day. 90 tablet 1 07/05/19 25 Active simethicone (Mylicon,Gas-X) 180 MG capsuleIndicatio ns:Bloating symptom Take 1 capsule (180 mg) by mouth if needed in the morning, at noon, in the evening, and at bedtime for flatulence (before meals as needed). 180 capsule 07/05/19 25 Active Tirzepatide-Weig ht Management (Zepbound) 2.5 MG/0.5ML solution auto-injectorInd ications:Class 1 obesity due to excess calories with serious comorbidity and body mass index (BMI) of 33.0 to 33.9 in adult Inject 0.5 mL (2.5 mg) under the skin 1 (one) time per week. 2 mL 08/24/19 25 Active phentermine 37.5 MG capsuleIndicatio ns:Class 1 obesity due to excess calories with serious comorbidity and body mass index (BMI) of 33.0 to 33.9 in adult Take 1 capsule (37.5 mg) by mouth before breakfast. 30 capsule 07/05/19 25 025 Discontinued Active Problems Problem Noted Date Diagnosed Date Cervicalgia 07/05/2024 Assessment & Plan (07/05/2024 3:18 PM EST): I will order an MRI of the neck I will refer patient to pain management Class 1 obesity due to exces s calories with serious comorbidity and body mass index (BMI) of 33.0 to 33.9 in adult 07/05/2024 Assessment & Plan (08/23/2024 10:30 AM EDT): I will discontinue phentermine and I will prescribe for patient zepbound to 0.5 mg once a week, extensive counseling about healthy diet and exercise done today Medication side effects were reviewed with patient Assessment & Plan (07/05/2024 3:21 PM EST): [...] on gabapentin XRAY and PT Fractured dental uatsdin with loss of materi al 04/03/2024 Generalized gingival recession, severe Gingival bleeding 11/30/2023 Periodontal disease 10/28/2023 Dental [...] Encounters Date Type Department Care Team Description 09/06/[address] [facility] MEDICINE [address] [place] [phone] Riya Ambrocio MD Prior Authorization 08/28/[address] [address] Carlee Kay LPN 08/23/2024 10:00 AM EDT Telemedicine [address] [address] Riya Ambrocio MD Class 1 obesity due to excess calories with serious comorbidity and body mass index (BMI) of 33.0 to 33.9 in adult (Primary Dx) 08/23/2024 Travel 08/09/[address] [address] Riya Ambrocio MD Call Back Request 07/21/[address] [phone] Sharri Chatterjee, RN Results 07/07/[address] [address] Riya Ambrocio MD Prior Authorization ( [place] Request: Phenterimine) 07/05/2024 10:30 AM EST Office Visit [address] [phone] Riya Ambrocio MD Cervicalgia (Primary Dx); Primary hypertension; Mixed anxiety and depressive disorder; Class 1 obesity due to excess calories with serious comorbidity and body mass index (BMI) of 33.0 to 33.9 in adult; Bloating symptom 07/05/2024 Travel 06/23/2024 Patient Outreach [address] [address] Riya Ambrocio MD Pre-visit Planning (SDOH screening [...] Description 10/18/2024 2:45 PM EDT Office Visit [facility] MEDICINE [address] [place] [address] [phone] Riya Ambrocio MD [address] [place] [address] Health Maintenance Due Date Last Done Comments CT Colonography 1966 Colonoscopy 1966 Colorectal Cancer Screening 1966 FIT DNA/Cologuard 1966 FIT 1966 FOBT 1966 Sigmoidoscopy 1966 DTaP/Tdap/Td Vaccines (1 - Tdap) 1985 Hepatitis B Vaccines (1 of 3 - 19+ 3-dose series) 1985 Pneumococcal Vaccine: 50+ Years (1 of 1 - PCV) 2016 Zoster Vaccines (1 of 2) 2016 COVID-19 Vaccine ( - season) 2024 12/12/2021, 05/21/2021, 10/14/2020, Additional history [...] EST Narrative 07/20/2024 8:25 AM EST ? [facility] ?[address] ?[place] [address] ? Magnetic Resonance Report ? Signed ? Patient: Huerta Venegas,Ash ?MR#: ?? [id number] ? : 1965 ?Acct:[id number] ? Age/Sex: 58 / M ?ADM Date: 02/05/25 ? Loc: HO.MRI ? Attending Dr: Riya Bonilla MD ? Ordering Physician: Riya Ambrocio MD ?? Date of Service: 07/19/24 ?? Procedure(s): MR cervical spine wo con ?? Accession Number(s): [id number] ? cc: Riya Ambrocio MD ? EXAMINATION: [...] by Hema Chatterjee MD in OV> ? 07/20/24820 ? DD/ 02 ? TD/TT: 07/19/241931 ? Jewelry Engraver: ? Procedure Note Edu, Image - 07/20/[address] [address] Magnetic Resonance Report Signed Patient: Sharan Becerra AMR#: [id number] : 1965Acct:[id number] Age/Sex: 58 / MADM Date: 07/19/24 Loc: HO.MRI Attending Dr: Riya Bonilla MD Ordering Physician: Riya Ambrocio MD Date of Service: 07/19/24 Procedure(s): MR cervical spine wo con Accession Number(s): [id number] cc: Riya Ambrocio MD EXAMINATION: MR CERVICAL [...] <Electronically signed by Hema Chatterjee MDin OV> 07/20/24820 DD/ 02 TD/TT: 07/19/241931 Jewelry Engraver: Riya Bonilla MD IMG MRI PROCEDURES Fi nal Result * Hepatitis C Antibody with Reflex to HCV, RNA, Quantitative, Real-Time PCR (12/09/2022 10:08 AM EDT) Pathologist [facility] Hepatitis C Antibody NON-REACT BRIAN NON-REACT BRIAN [facility] Comment: HCV antibody was non-reactive. There is no laboratory evidence of HCV infection. In most cases, no further action is required. However, if recent HCV exposure is suspected, a test for HCV RNA (test code 11030) is suggested. For additional information please refer to http://education.[employer]Chango/faq/TOA33a1 (This link is being provided for informational/ educational purposes only.) Blood Venous blood specimen / Unknown 12/09/2022 10:08 AM EDT 12/09/2022 10:09 AM EDT Narrative [facility] - 12/10/2022 5:39 PM EDT FASTING:NO FASTING: NO Riya Bonilla MD LAB BLOOD ORDERABLES Final Result [address], [address], [place] [address] [facility] [address] [place] [address] * HIV-1/2 Antigen and Antibodies, Fourth Generation, with Reflexes (12/09/2022 10:08 AM EDT) [facility] HIV Antigen/Antibody, 4th Generation NON-REAC TIVE NON-REAC TIVE [facility] [employer] Comment: HIV-1 antigen and HIV-1/HIV-2 antibodies were [...] ?? For additional information please refer to http://education.[employer]/faq/CML528 (This link is being provided for informational/ educational purposes only.) The performance of this assay has not been clinically validated in patients less than 2 years old. Blood Venous blood specimen / Unknown 12/09/2022 10:08 AM EDT 12/09/2022 10:[address] [facility] - 12/10/2022 5:39 PM EDT FASTING:NO FASTING: NO Riya Bonilla MD LAB BLOOD ORDERABLES Final Result [facility] [address], [facility] [place] [address] [facility] [employer] [address] [place] [address] * (ABNORMAL) LIPID PANEL, STANDARD (04/16/2022 3:36 PM EDT) [facility] Chol/HDLC Ratio 6.6(H) <5.0 (calc) CONVERTED LEGACY [...] ?? Jatin KUO et al. DAISY. 2013;310(19): 2268-1919 ?? (http://[employer]/faq/RXV087) Non-HDL Cholesterol 152(H) <130 mg/dL (calc) CONVERTED [...] Relevant to Health Maintenance Insurance HSN PARTIAL [facility] Address: [address] [phone] DENTAL - HSN PARTIAL (MEDICAID) Care Teams Manager Merchandising Relationship Specialty Start Date End Date Riya Ambrocio MD [address] [place] [address] PCP - General Family Medicine 12/23/18
--- OUTSIDE RECORDS SUMMARY | 2024-09-07 08:53 | XMS_ITS | Encounter Summary ---
Author Organization [facility] Address [address] [facility] 7t [place] [address] Care Team Providers Care Draftsperson Name Role Phone Riya Ambrocio MD Primary Care Provide r Reason for Visit * Reason Onset Date Comments Call Back Request 08/09/2024 Encounter Details Date Type Department Care Team ([facility] st Contact Info) Description 08/09/2024 Telephone [facility] MEDICINE [address] [place], [place] [phone] Riya Ambrocio MD [address] [place] [address] Call Back Request Social History Tobacco Use [...] 11:20 AM EST TC placed to patient [phone] via [employer] ([employer] #[id number]) in regards to below message. Patient reports he is scheduled for an appointment with urologist however he does not recall the date and time of the appointment. Per chart review, patient was referred to [facility] urology in 03/2024. RN advised patient he will need to call their office to inquire on his appointment date and time. Patient reports he is unable to take down phone number at this time as he is driving. Patient reports he will return call to [facility] to obtain phone number when he is not driving anymore. When patient returns call, please advise patient to call [phone] for appointment details. Thank you * Telephone [...] 2:45 PM EDT Office Visit [facility] MEDICINE [address] [place] [address] Riya Ambrocio MD [address] [place] [address] documented as of this encounter Visit Diagnoses Not on filedocumented in this encounter Additional Health Concerns Assessment Noted Time PHQ-9 Depression Total Score: 0 10/27/19 24 9:27 AM EDT documented as of this encounter Care Teams Draftsperson Relationship Specialty Start Date End Date Riya Ambrocio MD [address] [place] [id number] PCP - General Family Medicine 12/23/18 documented as of this encounter
== END 2024-09-07 09:11 | disposition home or self-care (01) ==
LOC: HO.HUSH 08:25
PROVIDERS: PCP Internal Medicine; Visit Provider Nurse Practitioner Family
DX: N41.9 Inflammatory disease of prostate, unspecified (principal); N20.0 Calculus of kidney; R35.1 Nocturia; R33.9 Retention of urine, unspecified; R30.0 Dysuria; Z13.9 Encounter for screening, unspecified
CPT/HCPCS: 99214

== ENCOUNTER → 2024-09-07 08:25 | Outpatient (BNVA) | payer OTHER, SELFPAY | PROVIDERS: PCP Internal Medicine; Visit Provider Nurse Practitioner Family | DX: N41.9 Inflammatory disease of prostate, unspecified (principal); N20.0 Calculus of kidney; R35.1 Nocturia; R33.9 Retention of urine, unspecified; R30.0 Dysuria; N39.0 Urinary tract infection, site not specified | CPT/HCPCS: 51798; 81003; 99212 ==

== ENCOUNTER 2024-10-31 09:22 | Outpatient (REF) | payer OTHER, SELFPAY ==
--- OUTSIDE RECORDS SUMMARY | 2024-10-31 10:11 | XMS_ITS | Clinical Summary ---
Author Organization [employer] Address [address] [facility] 7t [place] [address] Care Team Providers Care Fraternity Adviser Name Role Phone Riya Ambrocio MD Primary Care Provide r Allergies Active Allergy Reactions Criticality Noted Date Comments Modified Tree Tyrosine Adsorbate 12/2024 Medications * This document contains information received from the source organization and may not represent a complete record from that organization. fenofibrate (Triglide) 160 MG tablet Take 1 [...] 22 Active ergocalciferol (Vitamin D-2) 1.25 MG (71448 UT) capsule take 1 capsule by oral [...] 22 Active hydrocortisone (Anusol-HC) 2.5 % rectal creamIndication s:Other hemorrhoids Insert into the rectum 2 times daily. 28 g 1 04/01/20 23 Active fluticasone (Flonase) 50 MCG/ACT nasal sprayIndication s:Seasonal allergies Administer 1 spray into each nostril Once per day. 16 g 2 10/27/19 24 Active olopatadine (Pataday) 0.2 % ophthalmic solutionIndicat ions:Seasonal allergies Administer 1 drop into affected eye(s) Once per day. 2.5 mL 2 10/27/19 24 Active gabapentin (Neurontin) 100 MG capsuleIndicati ons:Neck pain Take 3 capsules (300 mg) by mouth every 8 (eight) hours. 90 capsule 2 04/13/20 24 025 Active citalopram (CeleXA) 20 MG tabletIndicatio ns:Mixed anxiety and depressive disorder Take 1 tablet (20 mg) by mouth Once per day. 90 tablet 1 07/05/19 25 025 Active atorvastatin (Lipitor) 20 MG tabletIndicatio ns:Primary hypertension Take 1 tablet (20 mg) by mouth Once per day. 90 tablet 1 07/05/19 25 Active simethicone (Mylicon,Gas-X) 180 MG capsuleIndicati ons:Bloating symptom Take 1 capsule (180 mg) by mouth if needed in the morning, at noon, in the evening, and at bedtime for flatulence (before meals as needed). 180 capsule 07/05/19 25 Active Tirzepatide-Landon ght Management (Zepbound) 2.5 MG/0.5ML solution auto-injectorIn dications:Class 1 obesity due to excess calories with serious comorbidity and body mass index (BMI) of 33.0 to 33.9 in adult Inject 0.5 mL (2.5 mg) under the skin 1 (one) time per week. 2 mL 08/24/19 25 Active fexofenadine (Kimmie) 180 MG tabletIndicatio ns:Seasonal allergies Take 1 tablet (180 mg) by mouth if needed each day (Allergies). 30 tablet 2 10/19/19 25 025 Active lisinopril (Prinivil) 20 MG tabletIndicatio ns:Primary hypertension Take 1 tablet (20 mg) by mouth Once per day. 30 tablet 2 10/19/19 25 026 Active cyclobenzaprine (Flexeril) 10 MG tabletIndicatio ns:Muscle spasm Take 1 tablet (10 mg) by mouth at bedtime. 30 tablet 2 10/19/19 25 025 Active Ketotifen Fumarate 0.035 % solutionIndicat ions:Seasonal allergies Administer 1 drop into affected eye(s) every 12 (twelve) hours if needed (use if needed). INSTILL 1 DROP INTO EACH EYE TWICE A DAILY 10 mL 1 10/19/19 25 Active Ketotifen Fumarate 0.035 % solution Administer 1 drop into affected eye(s) every 12 (twelve) hours if needed (use if needed). INSTILL 1 DROP INTO EACH EYE TWICE A DAILY 10 mL 1 10/21/19 24 025 Discontinued(R eorder (will not trigger notification to Pharmacy)) EQ Allergy Relief, Cetirizine, 10 MG tabletIndicatio ns:Seasonal allergies Take 1 tablet by mouth once daily 90 tablet 01/19/20 24 025 Discontinued lisinopril 5 MG tabletIndicatio ns:Primary hypertension Take 1 tablet (5 mg) by mouth Once per day. 90 tablet 1 07/05/19 25 025 Discontinued Active Problems Problem Noted Date Diagnosed Date Muscle spasm 10/18/2024 Assessment & Plan (10/18/2024 4:57 PM EDT): Apply heat on affected area I will prescribe for him Flexeril 10 mg at bedtime counseling was done about side effects of this medication he cannot drive while taking this medication Sebaceous cyst 10/18/2024 Cervicalgia 07/05/2024 Assessment & Plan (07/05/2024 3:18 PM EST): I will order an MRI of the neck I will refer patient to pain management Class 1 obesity due to exces s calories with serious comorbidity and body mass index (BMI) of 33.0 to 33.9 in adult 07/05/2024 Assessment & Plan (10/18/2024 4:57 PM EDT): Extensive counseling about healthy diet and exercise on today I refer patient patient to scrubber operator Assessment & Plan (08/23/2024 10:30 AM EDT): [...] on gabapentin XRAY and PT Fractured dental anglican with loss of materi al 04/03/2024 Generalized gingival recession, severe Gingival bleeding 11/30/2023 Periodontal disease 10/28/2023 Dental calculus 10/28/2023 Missing teeth, acquired 10/28/2023 Seasonal allergies 2023 Witnessed episode of apnea 2023 Other constipation 04/01/2023 Colon cancer screening 04/01/2023 Other hemorrhoids 01/07/2023 Primary hypertension 12/09/2022 Assessment & Plan (10/18/2024 4:56 PM EDT): Blood pressure today was not under control I decided to go up on his lisinopril to 20 mg daily I advised low-sodium diet and to log his blood pressure and bring log for next appointment Assessment & Plan (07/05/2024 3:19 PM EST): [...] and depressive disorder 10/19/2022 Assessment & Plan (10/18/2024 4:57 PM EDT): Continue with citalopram 20 mg daily I refer patient to behavioral health Assessment & Plan (07/05/2024 3:22 PM EST): [...] PM EDT): Sleep study information provided Encounters * This document contains information received from the source organization and may not represent a complete record from that organization. Date Type Department Care Team Description 10/18/2024 2:45 PM EDT Office Visit [address] [address] Riya Ambrocio MD Primary hypertension; Seasonal allergies; Muscle spasm; Class 1 obesity due to excess calories with serious comorbidity and body mass index (BMI) of 33.0 to 33.9 in adult; Mixed anxiety and depressive disorder; Sebaceous cyst 10/17/[address] [address] Riya Ambrocio MD Chart Prep 10/13/2024 Orders Only [facility] [address] [place], [place] [phone] Himanshu Quintero MD 09/06/[address] [place] [address] Riya Ambrocio MD Prior Authorization 08/28/[address] [address] Carlee KayMARYELLEN 08/23/2024 10:00 AM EDT Telemedicine [address] [address] Riya Ambrocio MD Class 1 obesity due to excess calories with serious comorbidity and body mass index (BMI) of 33.0 to 33.9 in adult (Primary Dx) 08/23/2024 Travel 08/09/[address] [address] Riya Ambrocio MD Call Back Request from Last 3 Months Social History Tobacco [...] Sign Reading Time Taken Comments Blood Pressure 144/92 10/18/2024 2:55 PM EDT Pulse 88 10/18/2024 2:47 PM EDT Temperature 36.5 ??C (97.7 ??F) 10/18/2024 2:47 PM ED T Respiratory Rate 18 10/18/2024 2:47 PM EDT Oxygen Saturation 96% 07/05/2024 10:22 AM EST Inhaled Oxygen Concentration - - Weight 95.5 kg (210 lb 9.6 oz) 10/18/2024 2:47 P M EDT Height 167.6 cm (5' 6 ) 10/18/2024 2:47 PM EDT Body Mass Index 33.99 10/18/2024 2:47 PM EDT Plan of Treatment Upcoming Encounters Date Type Department Care Team (Late st Contact Info) Description 11/20/2024 10:00 AM EDT Office Visit [facility] ADULT DENTAL [address] [place] [address] Jimbo Carson, FELIXS [address] [place] [address] Health Maintenance Due Date Last Done Comments CT Colonography 1966 FIT DNA/Cologuard 1966 FIT 1966 FOBT 1966 Sigmoidoscopy 1966 DTaP/Tdap/Td Vaccines (1 - Tdap) 1985 Hepatitis B Vaccines (1 of 3 - 19+ 3-dose series) 1985 Pneumococcal Vaccine: 50+ Years (1 of 1 - PCV) 2016 Zoster Vaccines (1 of 2) 2016 COVID-19 Vaccine (5 - 2023- season) 2024 12/12/2021, 05/21/2021, 10/14/2020, Additional history exists Influenza Vaccine (#1) 2024 Dental Oral Exam 04/30/2024 10/28/2023, 09/12/2021 Dental Prophylaxis 06/01/2024 11/30/2023, 1 , 09/16/2021 Depression Screening 10/26/2024 2023, 10/27/19 Dental X-Ray: Bitewings 10/28/2024 10/28/2023, 09/12 Dental X-Ray: Full Mouth 12/17/2024 12/16/2021, 04/06/2021 Alcohol/Substance Use Screening 04/13/2025 04/13/2024 SDOH Screening 06/23/2025 06/23/2024 Disability Screening 10/18/2025 10/18/2024 Tobacco Screening 10/18/2025 10/18/2024 Lipid Panel 04/16/2027 04/16/2022 Colonoscopy 10/13/2030 10/14/2023 Colorectal Cancer Screening 10/13/2030 RSV Patients and Patients Aged 60 years [...] patient's age to complete this topic Meningococcal B Vaccine Aged Out No l onger eligible based on patient's age to complete [...] Procedure Name Priority Date/Time Associated Diagnosis Comments PROPHYLAXIS - ADULT Routine 11/30/2023 1 0:00 AM EDT Periodontal disease Dental calculus Gingival bleeding BITEWINGS - 4 RADIOGRAPHIC IMAGES Routine 10/28/2023 1:00 PM EDT Periodontal disease Dental calculus Missing teeth, acquired PERIODIC ORAL EVALUATION - ESTABLISHED PATIENT Routine 10/28/2023 1:00 PM EDT HM COLONOSCOPY Routine 10/14/2023 9:04 PM EDT HEPATITIS C AB W/REFL TO HCV RNA, QN, PCR Routine 12/09/2022 10:08 AM EDT Primary hypertension HIV 1/2 ANTIGEN/ANTIBODY, FOURTH GENERATION W/RFL Routine 12/09/2022 10:08 AM EDT Primary hypertension LIPID PANEL, STANDARD Routine 04/16/2022 3:36 PM EDT PANORAMIC RADIOGRAPHIC IMAGE Routine 12/16/2021 12:00 AM EDT from Last 3 Months or Most Recently Relevant to Health Maintenance Results * Hm Colonoscopy (10/14/2023 9:04 PM EDT) Colonoscopy Normal Normal Narrative Malorie Black - 10/14/2023 9:04 PM EDT Repeat colonoscopy for asymptomatic colorectal cancer screening recommended in 7 years due to prep ??( see external hospital admission note on 10/14/2023) ?? us Historical Provider HEALTH MAINTENANCE Edited Result - Final * Hepatitis C Antibody with Reflex to HCV, RNA, Quantitative, Real-Time PCR (12/09/2022 10:08 AM EDT) Hepatitis C Antibody NON-REACT BRIAN NON-REACT BRIAN [facility] Comment: HCV antibody was non-reactive. There is no laboratory evidence of HCV infection. In most cases, no further action is required. However, if recent HCV exposure is suspected, a test for HCV RNA (test code 72996) is suggested. For additional information please refer to http://education.C[employer] Me.Zweemie/faq/WSC52u1 (This link is being provided for informational/ educational purposes only.) Blood Venous blood specimen / Unknown 12/09/2022 10:08 AM EDT 12/09/2022 10:09 AM EDT Narrative [facility] - 12/10/2022 5:39 PM EDT FASTING:NO FASTING: NO Riya Bonilla MD LAB BLOOD ORDERABLES Final Result Performing Organization Address City/State/[facility] Co de Phone Number [facility] [address] [facility], [facility], [place] [address] [facility] [place] [facility] [address] [place] [address] * HIV-1/2 Antigen and Antibodies, Fourth Generation, with Reflexes (12/09/2022 10:08 AM EDT) Pathologist [facility] HIV Antigen/Antibody, 4th Generation NON-REAC TIVE NON-REAC TIVE [facility] [place] [facility] Comment: HIV-1 antigen and HIV-1/HIV-2 antibodies [...] ?? For additional information please refer to http://education.Coup[employer] Near Me.Zweemie/faq/CMQ319 (This link is being provided for informational/ educational purposes only.) The performance of this assay has not been clinically validated in patients less than 2 years old. Blood Venous blood specimen / Unknown 12/09/2022 10:08 AM EDT 12/09/2022 10:09 AM EDT Narrative [facility] - 12/10/2022 5:39 PM EDT FASTING:NO FASTING: NO Riya Bonilla MD LAB BLOOD ORDERABLES Final Result [facility] [address] [facility], [facility], [place] [address] [facility] [address] [place] [address] * (ABNORMAL) LIPID PANEL, STANDARD (04/16/2022 3:36 [...] the ?? estimation of LDL-C. ?? Jatin SS et al. DAISY. 2013;310(19): 1045-4798 ?? (http://education.[employer]/faq/OUQ399) Non-HDL Cholesterol 152(H) <130 mg/dL (calc) CONVERTED [...] fasting specimen if clinically indicated. ?? Mona lyn al. J. of Clin. Lipidol. 2015;9:129-169. ? There is increased risk of pancreatitis when the ?? triglyceride concentration is very high ?? (> or = 500 mg/dL, especially if > or = 1000 mg/dL). ?? Mona lyn al. J. of Clin. Lipidol. 2015;9:129-169. ?? 04/16/2022 3:36 PM EDT Riya Bonilla MD LAB BLOOD ORDERABLES Final Result CONVERTED LEGACY LABS from Last 3 Months or Most Recently Relevant to Health Maintenance Insurance HSN PARTIAL [facility] - HSN PARTIAL (MEDICAID) Care Teams Fraternity Adviser Relationship Specialty Start Date End Date Riya Ambrocio MD [address] [place] [id number] PCP - General Family Medicine 12/23/18
--- OUTSIDE RECORDS SUMMARY | 2024-10-31 10:11 | XMS_ITS | Encounter Summary ---
Author Organization [employer] Address [address] [facility] [address] [place] [address] Care Team Providers Care Gas Engine Performance Engineer Name Role Phone Riya Ambrocio MD Primary Care Provide r Encounter Details Date Type Department Care Team (Late st Contact Info) Description 10/13/2024 Orders Only [facility] [address] [place] [address] Provider, MD Himanshu Social History Tobacco Use Types Packs/Day Years [...] Description 11/20/2024 10:00 AM EDT Office Visit [facility] ADULT DENT[facility] [address] [place], [place] [phone] Jimbo Carson DDS [address] [place], [place] [phone] documented as of this encounter Procedures Procedure Name Priority Date/Time Associated Diagnosis Comments COLONOSCOPY Routine 10/14/2023 9:04 PM EDT documented in this encounter Results * Hm Colonoscopy (10/14/2023 9:04 PM EDT) Colonoscopy Normal Normal Narrative Malorie Black - 10/14/2023 9:04 PM EDT Repeat colonoscopy for asymptomatic colorectal cancer screening recommended in 7 years due to prep ??( see external hospital admission note on 10/14/2023) ?? us Historical Provider HEALTH MAINTENANCE Edited Result - Final documented in this encounter Visit Diagnoses Not on filedocumented in this encounter Additional Health Concerns Assessment Noted Time PHQ-9 Depression Total Score: 0 10/27/19 24 9:27 AM EDT documented as of this encounter Care Teams Gas Engine Performance Engineer Relationship Specialty Start Date End Date Riya Ambrocio MD [address] [place], [place] [phone] PCP - General Family Medicine 12/23/18 documented as of this encounter
--- OUTSIDE RECORDS SUMMARY | 2024-10-31 10:11 | XMS_ITS | Encounter Summary ---
Author Organization [employer] Address [address] [facility] 7[address] [place] [address] Care Team Providers Care Director Of Annual Giving Name Role Phone Riya Ambrocio MD Primary Care Provide r Encounter Details Date Type Department Care Team (Latest Contact Info) Description 09/16/2021 Abstract [facility] CONVERSIONS Dental, Provider, DDS Social [...] Description 11/20/2024 10:00 AM EDT Office Visit [facility] ADULT DENTAL [address] [place] [address] Jimbo Carson DDS [address] [place] [address] documented as of this encounter Visit Diagnoses Not on filedocumented in this encounter Care Teams Director Of Annual Giving Relationship Specialty Start Date End Date Riya Ambrocio MD [address] [place] [address] PCP - General Family Medicine 12/23/18 documented as of this encounter
[2024-10-31 11:56] LABS: Prostate Specific Antigen 2.02 ng/mL (<0.05-4.0)
== END 2024-10-31 09:23 | disposition home or self-care (01) ==
LOC: HO.10HDL 09:22
PROVIDERS: Visit Provider Nurse Practitioner Family
DX: N41.9 Inflammatory disease of prostate, unspecified (principal)
CPT/HCPCS: 36415; 84153

== ENCOUNTER 2024-11-21 14:58 | Outpatient (REF) | payer OTHER, SELFPAY ==
--- NOTE | ~2024-11-21 | US_ITS ---
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 COMPARISON: Comparison is made with the prior examination dated 02/04/2023. FINDINGS: Right kidney: The right kidney measures 9.2 x 5.7 x 5.5 cm. Renal parenchymal echotexture and thickness are normal. There are no masses. There is no hydronephrosis or renal calculi. Left Kidney: The left kidney measures 12.4 x 5.6 x 5.3 cm. Renal parenchymal echotexture and thickness are normal. There is a 7 x 9 x 7 mm cyst at the lower pole. There is no hydronephrosis or renal calculi. The urinary bladder is unremarkable. Bilateral ureteral jets are identified. Before voiding, the urinary bladder measured 10.0 x 6.9 x 7.2 cm, for an estimated volume of 260 mL. After voiding, the urinary bladder measured 3.1 x 1.7 x 2.6 cm, for an estimated volume of 7 mL. The prostate measures 4.2 x 3.0 x 5.4 cm, for an estimated volume of 36 mL. US/US retroperitoneal comp IMPRESSION: 9 mm cyst at the lower pole of the left kidney. Otherwise unremarkable retroperitoneal ultrasound. Post void bladder residual of 7 mL. Prostate volume of 36 mL. Electronically signed by: Phill Soliz MD 11/22/2024 07:27 AM EDT
--- OUTSIDE RECORDS SUMMARY | 2024-11-21 18:04 | XMS_ITS | Clinical Summary ---
Author Organization [employer] Address [address] [facility] 7t [place] [address] Care Team Providers Care Supervisor Gluing Name Role Phone Riya Ambrocio MD Primary [...] 2 Active ergocalciferol (Vitamin D-2) 1.25 MG (64098 UT) capsule take 1 capsule by oral [...] times daily. 28 g 1 3 Active fluticasone (Flonase) 50 MCG/ACT nasal sprayIndications: Seasonal allergies Administer 1 spray into each nostril Once per day. 16 g 2 4 Active olopatadine (Pataday) 0.2 % ophthalmic solutionIndicatio ns:Seasonal allergies Administer 1 drop into affected eye(s) Once per day. 2.5 mL 2 4 Active gabapentin (Neurontin) 100 MG capsuleIndication s:Neck pain Take 3 capsules (300 mg) by mouth every 8 (eight) hours. 90 capsule 2 4 04/13/20 25 Active citalopram (CeleXA) 20 MG tabletIndications :Mixed anxiety and depressive disorder Take 1 tablet (20 mg) by mouth Once per day. 90 tablet 1 5 01/02/20 25 Active atorvastatin (Lipitor) 20 MG tabletIndications :Primary hypertension Take 1 tablet (20 mg) by mouth Once per day. 90 tablet 1 5 Active simethicone (Mylicon,Gas-X) 180 MG capsuleIndication s:Bloating symptom Take 1 capsule (180 mg) by mouth if needed in the morning, at noon, in the evening, and at bedtime for flatulence (before meals as needed). 180 capsule 5 Active Tirzepatide-Weigh t Management (Zepbound) 2.5 MG/0.5ML solution auto-injectorIndi cations:Class 1 obesity due to excess calories with serious comorbidity and body mass index (BMI) of 33.0 to 33.9 in adult Inject 0.5 mL (2.5 mg) under the skin 1 (one) time per week. 2 mL 5 Active fexofenadine (Kimmie) 180 MG tabletIndications :Seasonal allergies Take 1 tablet (180 mg) by mouth if needed each day (Allergies). 30 tablet 2 5 01/17/20 25 Active lisinopril (Prinivil) 20 MG tabletIndications :Primary hypertension Take 1 tablet (20 mg) by mouth Once per day. 30 tablet 2 5 10/19/19 26 Active cyclobenzaprine (Flexeril) 10 MG tabletIndications :Muscle spasm Take 1 tablet (10 mg) by mouth at bedtime. 30 tablet 2 5 01/17/20 25 Active Ketotifen Fumarate 0.035 % solutionIndicatio ns:Seasonal allergies Administer 1 drop into affected eye(s) every 12 (twelve) hours if needed (use if needed). INSTILL 1 DROP INTO EACH EYE TWICE A DAILY 10 mL 1 5 Active Active Problems Problem Noted Date Diagnosed [...] on today I refer patient patient to web knitter Assessment & Plan (08/23/2024 10:30 AM EDT): [...] on gabapentin XRAY and PT Fractured dental hoahaoism with loss of materi al 04/03/2024 Generalized [...] Description 10/18/2024 2:45 PM EDT Office Visit [address] [address] Riya Ambrocio MD Primary hypertension; Seasonal allergies; Muscle spasm; Class 1 obesity due to excess calories with serious comorbidity and body mass index (BMI) of 33.0 to 33.9 in adult; Mixed anxiety and depressive disorder; Sebaceous cyst 10/17/[address] [address] Riya Ambrocio MD Chart Prep 10/13/2024 Orders Only [facility] [address] [place] [address] Himanshu Quintero MD 09/06/[address] [address] Riya Ambrocio MD Prior Authorization 08/28/[address] [address] Carlee Kay LPN 08/23/2024 10:00 AM EDT Telemedicine [address] [address] Riya Ambrocio MD Class 1 obesity due to excess calories with serious comorbidity and body mass index (BMI) of 33.0 to 33.9 in adult (Primary Dx) 08/23/2024 Travel from Last 3 Months Social History Tobacco [...] Care Team (Late st Contact Info) Description 12/05/2024 3:00 PM EDT Nutrition [facility] DI[facility]ET[facility]/NUTRITION [address] [place] [address] Jessie Izaguirre, RD [address] [place] [address] 12/19/2024 2:30 PM EDT Office Visit [facility] ADULT DENTAL [address] [place] [address] Jimbo Carson, DDS [address] [place] [address] Health Maintenance Due Date Last Done Comments CT Colonography 1966 FIT DNA/Cologuard 1966 FIT 1966 FOBT 1966 Sigmoidoscopy 1966 DTaP/Tdap/Td Vaccines (1 - Tdap) 1985 Hepatitis B Vaccines (1 of 3 - 19+ 3-dose series) 1985 Pneumococcal Vaccine: 50+ Years (1 of 1 - PCV) 2016 Zoster Vaccines (1 of 2) 2016 COVID-19 Vaccine ( season) 2024 12/12/2021, 05/21/2021, 10/14/2020, Additional history exists Dental Oral Exam 04/30/2024 10/28/2023, 09/12/2021 Dental Prophylaxis 06/01/2024 11/30/2023, 1 , 09/16/2021 Depression Screening 10/26/2024 2023, 10/27/19 Dental X-Ray: Bitewings 10/28/2024 10/28/2023, 09/12 Dental X-Ray: Full Mouth 12/17/2024 12/16/2021, 06/2021 Influenza Vaccine (Season Ended) 2025 Alcohol/Substance Use Screening 04/13/2025 04/13/2024 SDOH Screening [...] external hospital admission note on 10/14/2023) ?? Historical Provider HEALTH MAINTENANCE Edited Result - Final * Hepatitis C Antibody with Reflex to HCV, RNA, Quantitative, Real-Time PCR (12/09/2022 10:08 AM EDT) Hepatitis C Antibody NON-REACT BRIAN NON-REACT BRIAN [facility] Comment: HCV antibody was non-reactive. There is no laboratory evidence of HCV infection. In most cases, no further action is required. However, if recent HCV exposure is suspected, a test for HCV RNA (test code 51615) is suggested. For additional information please refer to http://education.Oximity/faq/LDD29j4 (This link is being provided for informational/ educational purposes only.) Blood Venous blood specimen / Unknown 12/09/2022 10:08 AM EDT 12/09/2022 10:09 AM EDT Narrative [facility] - 12/10/2022 5:39 PM EDT FASTING:NO FASTING: NO Riya Bonilla MD LAB BLOOD ORDERABLES Final Result [facility] [address], [place] [address] [facility] [address] [place] [address] * HIV-1/2 Antigen and Antibodies, Fourth Generation, with Reflexes (12/09/2022 10:08 AM EDT) [facility] HIV Antigen/Antibody, 4th Generation NON-REAC TIVE NON-REAC TIVE [employer] [place] [employer] Comment: HIV-1 antigen and HIV-1/HIV-2 antibodies [...] ?? For additional information please refer to http://education.Oximity/faq/GBQ368 (This link is being provided for informational/ educational purposes only.) The performance of this assay has not been clinically validated in patients less than 2 years old. Blood Venous blood specimen / Unknown 12/09/2022 10:08 AM EDT 12/09/2022 10:09 AM EDT Narrative [facility] - 12/10/2022 5:39 PM EDT FASTING:NO FASTING: NO Riya Bonilla MD LAB BLOOD ORDERABLES Final Result [facility] [address], [place] [address] [employer] [place] [employer] [address] [place] [address] * (ABNORMAL) LIPID PANEL, STANDARD (04/16/2022 3:36 PM EDT) [facility] Chol/HDLC Ratio 6.6(H) <5.0 (calc) CONVERTED LEGACY [...] ?? LDL-C is now calculated using the Addy ?? calculation, which is a validated novel method providing ?? better accuracy than the Friedewald equation in the ?? estimation of LDL-C. ?? Jatin KUO et al. DAISY. 2013;310(19): 7095-1556 ?? (http://Autosprite.PayPal/faq/BGZ837) Non-HDL Cholesterol 152(H) <130 mg/dL (calc) CONVERTED [...] a fasting specimen if clinically indicated. ?? Dunn et al. J. of Clin. Lipidol. 2015;9:129-169. ? There is increased risk of pancreatitis when the ?? triglyceride concentration is very high ?? (> or = 500 mg/dL, especially if > or = 1000 mg/dL). ?? Dunn et al. J. of Clin. Lipidol. 2015;9:129-169. ?? 04/16/2022 3:36 PM EDT Riya Bonilla MD LAB BLOOD ORDERABLES Final Result CONVERTED LEGACY LABS from Last 3 Months or Most Recently Relevant to Health Maintenance Insurance HSN PARTIAL [facility] - HSN PARTIAL (MEDICAID) Care Teams Supervisor Gluing Relationship Specialty Start Date End Date Riya Ambrocio MD [address] [place] [address] PCP - General Family Medicine 12/23/18
== END 2024-11-21 14:59 | disposition home or self-care (01) ==
LOC: HO.US 14:58
PROVIDERS: PCP Internal Medicine; Visit Provider Nurse Practitioner Family
DX: N20.0 Calculus of kidney (principal); N41.9 Inflammatory disease of prostate, unspecified
CPT/HCPCS: 76770

== ENCOUNTER → 2024-11-21 15:00 | Outpatient (BNV) | payer OTHER, SELFPAY | PROVIDERS: PCP Internal Medicine; Visit Provider Radiology Diagnostic Radiology | DX: N28.1 Cyst of kidney, acquired (principal); R39.14 Feeling of incomplete bladder emptying | CPT/HCPCS: 76770 ==

== ENCOUNTER 2024-12-07 08:24 | Outpatient (AMB) | payer OTHER, SELFPAY ==
--- NOTE | 2024-12-07 08:34 | MHC.OFFVIS ---
Intake Visit Reasons: 3M follow up/US/PSA Intake Note: Patient presents today for pain with urination Urology Medications: Vitamin B6 Blood Thinner: none PVR: 4ml's Curatorial Assistant Required: Yes Curatorial Assistant Services: Curatorial Assistant Present Curatorial Assistant Name: Sarmad [id number] Accompanied by: Self / Same As Patient Allergies No Known Allergies (No Known Allergies*) Allergy (Verified 09/07/24 09:12) Medication List - Last Reconciled 12/07/24 by MALLIKA Freitas amitriptyline 20 mg (2 x 10 mg) PO BEDTIME citalopram 20 mg PO QAM hydrocortisone 2.5% (Proctosol HC) 1 appl MN BEDTIME PRN lisinopril 5 mg PO QAM psyllium husk (with sugar) 3 gram/7 gram (Metamucil (with sugar)) 1 tbsp PO DAILY 30 days HPI Comments Details: Sharan is a very pleasant 59-year-old Kiswahili-speaking male patient of Dr. Bonilla. He has a past medical history of anxiety, depression, and hypertension. He presents to the office today for follow-up of his lower urinary tract symptoms as well as acute/chronic prostatitis. In discussion with the patient today continues to report feeling episodes of dysuria and difficulty with urination. Recent retroperitoneal ultrasound results were reviewed 12/06 bilateral kidneys with no calculi or hydronephrosis. 9 mm cyst in the left upper pole. The urinary bladder is unremarkable. Prostate measures approximately 36 mL. PSAs are as follows: 04/05 1.8, 11/05 2.0 Previous workup has included a prostate massage that was sent for [facility] 07/07 that noted finegoldia magna, Enterococcus prevotii, and Enterococcus senegalensis. Unable to obtain urine for urinalysis as patient unable to void however PVR 4 mL. We did discussed at length potential causes and further treatment options of acute prostatitis verses chronic prostatitis. He otherwise denies hematuria, foul smelling urine, flank pain, fever, and or chills. He otherwise offers no other issues or concerns at this time. [facility] Medical History Hemorrhoids Class 1 obesity due to excess calories without serious comorbidity in adult Primary hypertension Snoring Mixed anxiety and depressive disorder Benign prostatic hyperplasia with nocturia Surgical History Hx of colonoscopy History of kidney surgery Social History Household Members: Family Alcohol intake: never Patient Tobacco Use Status: Never used Tobacco Review of Systems Const Reports as per HPI Eyes Reports no additional complaints ENT Reports no additional complaints Card Reports as per HPI Resp Reports no additional complaints GI Reports no additional complaints Reports as per HPI Musc Reports no additional complaints Neuro Reports no additional complaints Psych Reports as per HPI Endo Reports no additional complaints Aller/Immun Reports no additional complaints Physical Exam Const General: cooperative, healthy appearing, comfortable, no acute distress, well developed, alert and awake Orientation/consciousness: patient oriented x3 Limitations: language barrier HEENT Head: Yes normal to inspection, Yes normocephalic and Yes atraumatic Ears: hearing grossly normal bilaterally Eyes General: appearance normal, both eyes and all related structures Neck Neck: Yes normal visual inspection and Yes trachea midline Chest Chest palpation & inspection: normal inspection of the chest Resp Effort & Inspection: normal respiratory effort and able to speak in complete sentences Cardio Rate: regular rate GI Inspection: Yes normal to inspection Other: As per HPI General: Yes no CVA tenderness Back/Spine/Pelvis Back: no CVA tenderness Skin General skin exam: no rashes or lesions noted Neuro General: patient oriented x3 Extrem General: Yes normal to inspection Psych Appearance: grossly normal and well kempt Mental Status: mental status grossly normal Speech and movement: Normal speech and movement present and Clear speech present Affect: normal affect Attitude: cooperative Thought process: Normal thought process present Thought content: Normal thought content present Insight: Fair insight present (Psych) Judgement: Fair judgement present (Psych) Results Reviewed Results Reviewed: Date of Service: 11/21/24 Procedure(s): US retroperitoneal comp FINDINGS: Right kidney: The right kidney measures 9.2 x 5.7 x 5.5 cm. Renal parenchymal echotexture and thickness are normal. There are no masses. There is no hydronephrosis or renal calculi. Left Kidney: The left kidney measures 12.4 x 5.6 x 5.3 cm. Renal parenchymal echotexture and thickness are normal. There is a 7 x 9 x 7 mm cyst at the lower pole. There is no hydronephrosis or renal calculi. The urinary bladder is unremarkable. Bilateral ureteral jets are identified. Before voiding, the urinary bladder measured 10.0 x 6.9 x 7.2 cm, for an estimated volume of 260 mL. After voiding, the urinary bladder measured 3.1 x 1.7 x 2.6 cm, for an estimated volume of 7 mL. The prostate measures 4.2 x 3.0 x 5.4 cm, for an estimated volume of 36 mL. IMPRESSION: 9 mm cyst at the lower pole of the left kidney. Otherwise unremarkable retroperitoneal ultrasound. Post void bladder residual of 7 mL. Prostate volume of 36 mL. Assessment & Plan Assessment & Plan (1) Nephrolithiasis: Code(s): N20.0 - Calculus of kidney Category: Medical (2) Renal cyst: Code(s): N28.1 - Cyst of kidney, acquired Category: Medical (3) Dysuria: Code(s): R30.0 - Dysuria Category: Medical (4) Incomplete bladder emptying: Code(s): R33.9 - Retention of urine, unspecified Category: Medical (5) Prostatitis: Code(s): N41.9 - Inflammatory disease of prostate, unspecified Category: Medical (6) Nocturia: Code(s): R35.1 - Nocturia Category: Medical Plan Unable to obtain urine for urinalysis however PVR 4 mL. Recent retroperitoneal ultrasound results reviewed with the patient today; as noted above. Recent PSA results reviewed with the patient today; as noted above. We discussed potential causes of acute and chronic prostatitis We discussed further treatment options and risks and benefits of these treatment options. We discussed bladder triggers/irritants. Start Augmentin as discussed and prescribed. Start Flomax as discussed and prescribed. We discussed the importance of adequate hydration relation to lower urinary tract symptoms, prostatitis, as well as overall health and well-being. Follow-up in 1-2 months with PVR; or sooner with any issues, concerns, and or questions. Medications: New tamsulosin 0.4 mg PO BEDTIME 30 caps 3RF 30 days N40.1 - Benign prostatic hyperplasia with lower urinary tract symptoms, R35.1 - Nocturia amoxicillin-pot clavulanate 500-125 mg (Augmentin) 1 tab PO Q8H 42 tabs 0RF 14 days N39.0 - Urinary tract infection, site not specified Patient Instructions: The patient had an opportunity to ask questions regarding the treatment plan. All questions were answered. Physical exam, labs, and imaging were discussed and reviewed in detail. As well as risks, benefits, and discussion of treatment choices. No major barriers to understanding were identified. The patient expressed understanding and agreement with the above treatment plan. The patient was made aware they should contact our office by phone for worsening of their current condition, the appearance of new symptoms, or with any questions or concerns. Compliance is encouraged with any medications and follow up testing that is ordered. It is a privilege to be allowed the opportunity to participate in? your urological care.? Again, if you have any questions or concerns If you have any questions or concerns please do not hesitate to contact me. The office is [phone]. This note is constructed using voice recognition software. While every effort has been made to ensure accuracy vocational technical education teacher errors may have been included. Yours sincerely, MALLIKA Freitas Coding Level of Care Code Est Pt Level 4 (95322) Complex EM visit Add On G2211 Diagnoses Nephrolithiasis N20.0 Renal cyst N28.1 Dysuria R30.0 Incomplete bladder emptying R33.9 Prostatitis N41.9 Nocturia R35.1
--- OUTSIDE RECORDS SUMMARY | 2024-12-07 08:40 | XMS_ITS | Clinical Summary ---
Author Organization [employer] Address [address] [place] [address] Care Team Providers Care Auto Transmission Mechanic Name Role Phone Riya Ambrocio MD [...] 2 Active ergocalciferol (Vitamin D-2) 1.25 MG (58305 UT) capsule take 1 capsule by oral [...] on today I refer patient patient to circular stuffer Assessment & Plan (08/23/2024 10:30 AM EDT): [...] on gabapentin XRAY and PT Fractured dental zoroastrianism with loss of materi al 04/03/2024 Generalized [...] organization. Date Type Department Care Team Description 12/02/[address] [address] Riya Ambrocio MD Primary hypertension; Mixed anxiety and depressive disorder 11/21/2024 Orders Only [facility] External Provider, [facility] 10/18/2024 2:45 PM EDT Office Visit [address] [address] Riya Ambrocio MD Primary hypertension; Seasonal allergies; Muscle spasm; Class 1 obesity due to excess calories with serious comorbidity and body mass index (BMI) of 33.0 to 33.9 in adult; Mixed anxiety and depressive disorder; Sebaceous cyst 10/17/[address] [address] Riya Ambrocio MD Chart Prep 10/13/2024 Orders Only [facility] [address] [place], [place] [id number] ProviderHimanshu MD 09/06/[address] [address] Riya Ambrocio MD Prior Authorization from Last 3 Months Social History Tobacco [...] 88 10/18/2024 2:47 PM EDT Temperature 36.5 C (97.7 F) 10/18/2024 2:47 PM EDT Respiratory Rate 18 10/18/2024 2:47 PM EDT [...] Care Team (Late st Contact Info) Description 12/19/2024 2:30 PM EDT Office Visit [facility] [address] [place] [address] Jimbo Carson, DDS [address] [place] [address] Health Maintenance Due Date Last Done Comments CT Colonography 1966 FIT DNA/Cologuard 1966 FIT 1966 FOBT 1966 Sigmoidoscopy 1966 DTaP/Tdap/Td Vaccines (1 - Tdap) 1985 Hepatitis B Vaccines (1 of 3 - 19+ 3-dose series) 1985 Pneumococcal Vaccine: 50+ Years (1 of 1 - PCV) 2016 Zoster Vaccines (1 of 2) 2016 COVID-19 Vaccine (2023- season) 2024 12/12/2021, 05/21/2021, 10/14/2020, Additional history exists Dental Oral Exam 04/30/2024 10/28/2023, 09/12/2021 Dental Prophylaxis 06/01/2024 11/30/2023, 1 , 09/16/2021 Depression Screening 10/26/2024 2023, 10/27/19 24 Dental X-Ray: Bitewings 10/28/2024 10/28/2023, 09/12 Dental X-Ray: Full Mouth 12/17/2024 12/16/2021, 0406/2021 Influenza Vaccine (Season Ended) 2025 Alcohol/Substance Use [...] Procedure Name Priority Date/Time Associated Diagnosis Comments US RETROPERITONEAL COMPLETE Routine 11/21/2024 3:14 PM EDT PROPHYLAXIS - ADULT Routine 11/30/2023 1 0:00 [...] Recently Relevant to Health Maintenance Results * US Retroperitoneal Complete (11/21/2024 3:14 PM EDT) Anatomical Region Laterality Modality Ultrasound 11/21/2024 3:14 PM EDT Narrative 11/22/2024 7:31 AM EDT [place] [address] Ultrasound Report Signed Patient: Sharan Becerra MR#: [id number] : 1965 Acct:[id number] Age/Sex: 59 / M ADM Date: 11/21/24 Loc: HO.US Attending Dr: Mally Howard [facility] Ordering Physician: Mally Howard Date of Service: 11/21/24 Procedure(s): US retroperitoneal comp Accession Number(s): [id number] cc: Riya Ambrocio MD; Mally Howard [facility] 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 COMPARISON: Comparison is made with the prior examination dated 02/04/2023. FINDINGS: Right kidney: The right kidney measures 9.2 x 5.7 x 5.5 cm. Renal parenchymal echotexture and thickness are normal. There are no masses. There is no hydronephrosis or renal calculi. Left Kidney: The left kidney measures 12.4 x 5.6 x 5.3 cm. Renal parenchymal echotexture and thickness are normal. There is a 7 x 9 x 7 mm cyst at the lower pole. There is no hydronephrosis or renal calculi. The urinary bladder is unremarkable. Bilateral ureteral jets are identified. Before voiding, the urinary bladder measured 10.0 x 6.9 x 7.2 cm, for an estimated volume of 260 mL. After voiding, the urinary bladder measured 3.1 x 1.7 x 2.6 cm, for an estimated volume of 7 mL. The prostate measures 4.2 x 3.0 x 5.4 cm, for an estimated volume of 36 mL. US/US retroperitoneal comp IMPRESSION: 9 mm cyst at the lower pole of the left kidney. Otherwise unremarkable retroperitoneal ultrasound. Post void bladder residual of 7 mL. Prostate volume of 36 mL. Electronically signed by: Phill Soliz MD 11/22/2024 07:27 AM EDT RP Dictated By: Phill Soliz MD Signed By: <Electronically signed by Phill oSliz MD in OV> 11/22/24 0727 DD/ 1514 TD/TT: 11/21/24 1638 [employer] Developer: Procedure Note Donotuseinterpreter, Image - 11/22/2024 [place] [address] Ultrasound Report Signed Patient: Sharan Becerra AMR#: [id number] : 1965Acct:[id number] Age/Sex: 59 / MADM Date: 11/21/24 Loc: HO.US Attending Dr: Mally MARR Ordering Physician: Mally Howard Date of Service: 11/21/24 Procedure(s): US retroperitoneal comp Accession Number(s): [id number] cc: Riya Ambrocio MD; Mally Howard 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 COMPARISON: Comparison is made with the prior examination dated 02/04/2023. FINDINGS: Right kidney: The right kidney measures 9.2 x 5.7 x 5.5 cm. Renal parenchymal echotexture and thickness are normal. There are no masses. There is no hydronephrosis or renal calculi. Left Kidney: The left kidney measures 12.4 x 5.6 x 5.3 cm. Renal parenchymal echotexture and thickness are normal. There is a 7 x 9 x 7 mm cyst at the lower pole. There is no hydronephrosis or renal calculi. The urinary bladder is unremarkable. Bilateral ureteral jets are identified. Before voiding, the urinary bladder measured 10.0 x 6.9 x 7.2 cm, for an estimated volume of 260 mL. After voiding, the urinary bladder measured 3.1 x 1.7 x 2.6 cm, for an estimated volume of 7 mL. The prostate measures 4.2 x 3.0 x 5.4 cm, for an estimated volume of 36 mL. US/US retroperitoneal comp IMPRESSION: 9 mm cyst at the lower pole of the left kidney. Otherwise unremarkable retroperitoneal ultrasound. Post void bladder residual of 7 mL. Prostate volume of 36 mL. Electronically signed by: Phill Soliz MD 11/22/2024 07:27 AM EDT RP Dictated By: Phill Soliz MD Signed By: <Electronically signed by Phill Soliz MD in OV> 11/22/24726 DD/ 1514 TD/TT: 11/21/24 1638 [employer] Developer: [facility] External Provider IMG US PROCEDURES Final Result * Colonoscopy (10/14/2023 9:04 PM EDT) Colonoscopy Normal Normal Narrative Malorie Black - 10/14/2023 9:04 PM EDT Repeat colonoscopy for asymptomatic colorectal cancer screening recommended in 7 years due to prep ( see external hospital admission note on 10/14/2023) Historical Provider [facility] Edited Result - Final * Hepatitis C Antibody with Reflex to HCV, RNA, Quantitative, Real-Time PCR (12/09/2022 10:08 AM EDT) Hepatitis C Antibody NON-REACT BRIAN NON-REACT BRIAN [facility] Comment: HCV antibody was non-reactive. There is no laboratory evidence of HCV infection. In most cases, no further action is required. However, if recent HCV exposure is suspected, a test for HCV RNA (test code 39038) is suggested. For additional information please refer to http://education.[employer]/faq/UWO37n1 (This link is being provided for informational/ educational purposes only.) Blood Venous blood specimen / Unknown 12/09/2022 10:08 AM EDT 12/09/2022 10:09 AM EDT Narrative [facility] - 12/10/2022 5:39 PM EDT FASTING:NO FASTING: NO Riya Bonilla MD LAB BLOOD ORDERABLES Final Result [facility] [address], [place] [address] [facility] [place] [facility] [address] [place] [address] * HIV-1/2 Antigen and Antibodies, Fourth Generation, with Reflexes (12/09/2022 10:08 AM EDT) HIV Antigen/Antibody, 4th Generation NON-REAC TIVE NON-REAC TIVE [facility] [place] [facility] Comment: HIV-1 antigen and HIV-1/HIV-2 antibodies were not detected. There is no laboratory evidence of HIV infection. PLEASE NOTE: This information has been disclosed to you from records whose confidentiality may be protected by state law. If your state requires such protection, then the state law prohibits you from making any further disclosure of the information without the specific written consent of the person to whom it pertains, or as otherwise permitted by law. A general authorization for the release of medical or other information is NOT sufficient for this purpose. For additional information please refer to http://education.[employer]/faq/WXW919 (This link is being provided for informational/ educational purposes only.) The performance of this assay has not been clinically validated in patients less than 2 years old. Blood Venous blood specimen / Unknown 12/09/2022 10:08 AM EDT 12/09/2022 10:09 AM EDT Narrative [facility] - 12/10/2022 5:39 PM EDT FASTING:NO FASTING: NO us Riya Bonilla MD LAB BLOOD ORDERABLES Final Result [facility] [address], [place] [address] [facility] [place] [facility] [address] [place] [address] * (ABNORMAL) LIPID PANEL, STANDARD (04/16/2022 3:36 PM EDT) Chol/HDLC Ratio 6.6(H) <5.0 (calc) CONVERTED LEGACY LABS Cholesterol, Total 179 <200 mg/dL CONVERTED [facility]GACY LABS HDL Cholesterol 27(L) > OR = 40 mg/dL CONVERTED [facility]GACY [facility] LDL Cholesterol SEE COMMENT mg/dL (calc) [facility] Comment: LDL cholesterol not calculated. Triglyceride levels greater than 400 mg/dL invalidate calculated LDL results. Reference range: <100 Desirable range <100 mg/dL for primary prevention; <70 mg/dL for patients with CHD or diabetic patients with > or = 2 CHD risk factors. LDL-C is now calculated using the Jatin-Zuluaga calculation, which is a validated novel method providing better accuracy than the Friedewald equation in the estimation of LDL-C. Jatin SS et al. DAISY. 2013;310(19): 7444-0912 (http://education.[employer]/faq/GGV971) Non-HDL Cholesterol 152(H) <130 mg/dL (calc) CONVERTED LEGACY LABS Comment: For patients with diabetes plus 1 major ASCVD risk factor, treating to a non-HDL-C goal of <100 mg/dL (LDL-C of <70 mg/dL) is considered a therapeutic option. Triglycerides 506(H) <150 mg/dL CONVERTED LEGACY LABS Comment: If a non-fasting specimen was collected, consider repeat triglyceride testing on a fasting specimen if clinically indicated. Dunn et al. J. of Clin. Lipidol. 2015;9:129-169. There is increased risk of pancreatitis when the triglyceride concentration is very high (> or = 500 mg/dL, especially if > or = 1000 mg/dL). Dunn et al. J. of Clin. Lipidol. 2015;9:129-169. 04/16/2022 3:36 PM EDT us Riya Bonilla MD LAB BLOOD ORDERABLES Final Result CONVERTED LEGACY LABS from Last 3 Months or Most Recently Relevant to Health Maintenance Insurance [place] [id number] DENTAL - HSN PARTIAL (MEDICAID) Care Teams Auto Transmission Mechanic Relationship Specialty Start Date End Date Riya Ambrocio MD [address] [place] [id number] PCP - General Family Medicine 12/23/18
== END 2024-12-07 09:07 | disposition home or self-care (01) ==
LOC: HO.HUSH 08:25
PROVIDERS: PCP Internal Medicine; Visit Provider Nurse Practitioner Family
DX: N20.0 Calculus of kidney (principal); N28.1 Cyst of kidney, acquired; R30.0 Dysuria; R33.9 Retention of urine, unspecified; N41.9 Inflammatory disease of prostate, unspecified; R35.1 Nocturia
CPT/HCPCS: 99214; G2211

== ENCOUNTER → 2024-12-07 08:24 | Outpatient (BNVA) | payer OTHER, SELFPAY | PROVIDERS: PCP Internal Medicine; Visit Provider Nurse Practitioner Family | DX: N20.0 Calculus of kidney (principal); N28.1 Cyst of kidney, acquired; R30.0 Dysuria; R33.9 Retention of urine, unspecified; R35.1 Nocturia | CPT/HCPCS: 99212 ==

== ENCOUNTER 2025-06-13 14:14 | Outpatient (AMB) | payer MEDICAID, SELFPAY ==
--- OUTSIDE RECORDS SUMMARY | 2024-12-19 13:30 | XMS_ITS | Encounter Summary ---
Author Organization [employer] Address [address] [facility] [address] [place] [address] Care Team Providers Care Ticket Writer Name Role Phone Riya Ambrocio MD Primary Care Provide r Reason for Visit * Reason Comments Dental Pain Upper anterior Encounter Details Date Type Department Care Team (Late st Contact Info) Description 12/19/2024 2:30 PM EDT Office Visit [facility] [address] [place] [address] Jimbo Carson DDS [address] [place], [place] [phone] Fractured dental church without loss of material (Primary Dx) Social History Tobacco Use Types [...] as of this encounter Progress Notes * Jimbo Carson DDS - 12/19/2024 2:30 PM EDT Dental procedures in this visit D9999 - NO CHARGE VISIT (Completed) Service provider: Jimbo Carson DDS Billing provider: Jimbo Carson DDS Patient ID: Sharan Venegas is a 59 y.o. male. Time Out: Timeout Date: 12/19/24 (upper anterior pain #9), Timeout Time: 1435 Location: [facility] Tooth: Maxilla and #9 Procedure: Presybeterian polished Verified the above with patient, study assistant, and provider. Confirmed via patient's chart, intraorally and by radiographs. Shroud Line Tier: not applicable Chief Complaint Patient presents with Dental Pain Upper anterior Discomfort on mid line Maxillae Medical Hx: Vitals: There were no vitals taken for this visit. Patient presents for follow up. Objective: Alleviate discomfort Recommendations: Use OTC ice guard tester Patient tolerated procedure well. All questions answered. Dismissed in good condition. NV: Hygiene and noe # 9 Airfield Engineer Officer: Gabby Garcia Dentist: Jimbo Carson DDS documented in this encounter Plan of Treatment Scheduled Orders Name Type Priority Associated Diagnoses Orde r Schedule 8 M 8 M RESIN-BASED COMPOSITE - 1 SURF, ANTERIOR Dental Routine [address] arting 12/19/2024 documented as of this encounter Procedures Procedure Name Priority Date/Time Associated Diagnosis Comments NO CHARGE VISIT Routine 12/19/2024 2:30 PM EDT INTRAORAL - PERIAPICAL FIRST RADIOGRAPHIC IMAGE Routine 12/19/2024 2:30 PM EDT documented in this encounter Visit Diagnoses Diagnosis Fractured dental church without loss of material- Primary Fractured dental restorative material without loss of material documented in this encounter Additional Health Concerns Assessment Noted Time PHQ-9 Depression Total Score: 0 10/27/19 24 9:27 AM EDT documented as of this encounter Care Teams Ticket Writer Relationship Specialty Start Date End Date Riya Ambrocio MD [address] [place] [address] PCP - General Family Medicine 12/23/18 documented as of this encounter
--- NOTE | 2025-06-13 14:16 | A.OFFVIS_ITS ---
Intake Visit Reasons: 2m/PVR/UA(SET) Intake Note: Patient is present for 2M/PVR/UA Urology Medication:TAMSULOSIN Antibiotic Allergy:NONE Blood Thinner:NONE TODAY'S PVR:0ML'S Pulmonology Technician Required: No Pulmonology Technician Services: Pulmonology Technician Present Pulmonology Technician Name: Ron Sanders Allergies No Known Allergies (No Known Allergies*) Allergy (Verified 06/13/25 15:06) Medication List - Last Reconciled 06/13/25 by SAMIRA Freitas- amitriptyline 20 mg (2 x 10 mg) PO BEDTIME citalopram 20 mg PO QAM 90 days hydrocortisone 2.5% (Proctosol HC) 1 appl WA BEDTIME PRN lisinopril 5 mg PO QAM 90 days psyllium husk (with sugar) 3 gram/7 gram (Metamucil (with sugar)) 1 tbsp PO DAILY 30 days tamsulosin 0.8 mg (2 x 0.4 mg) PO BEDTIME 90 days HPI Comments Details: Sharan is a very pleasant 59-year-old Sierra Leonean-speaking male patient of Dr. Bonilla. He has a past medical history of anxiety, depression, and hypertension. He presents to the office today for follow-up of his lower urinary tract symptoms as well as acute/chronic prostatitis. In discussion with the patient today continues to report feeling episodes bladder pressure and difficulty with urination. He reports feeling symptoms are worse at HS. He does report minimal improvement with tamsulosin. In office urinalysis results reviewed with the patient today. PVR 0 mL. Previous workup has included a retroperitoneal ultrasound Recent retroperitoneal ultrasound 12/06 noting bilateral kidneys with no calculi or hydronephrosis. 9 mm cyst in the left upper pole. The urinary bladder is unremarkable. Prostate measures approximately 36 mL. PSAs are as follows: 04/05 1.8, 11/05 2.0 Urine cytology 02/04 Negative for high-grade urothelial carcinoma. Previous workup has included a prostate massage that was [facility] that noted finegoldia magna, Enterococcus prevotii, and Enterococcus senegalensis. We did discuss at length potential causes of lower urinary tract symptoms patient continues to experience. We did discuss further treatment options and risks and benefits of these treatment options. We discussed acute prostatitis verses chronic prostatitis. He otherwise denies hematuria, foul smelling urine, flank pain, fever, and or chills. He otherwise offers no other issues or concerns at this time. [facility] Medical History Hemorrhoids Class 1 obesity due to excess calories without serious comorbidity in adult Primary hypertension Snoring Mixed anxiety and depressive disorder Benign prostatic hyperplasia with nocturia Surgical History Hx of colonoscopy History of kidney surgery Social History Household Members: Family Alcohol intake: never Patient Tobacco Use Status: Never used Tobacco Review of Systems Const Reports as per HPI Eyes Reports no additional complaints ENT Reports no additional complaints Card Reports as per HPI Resp Reports no additional complaints GI Reports no additional complaints Reports as per HPI Musc Reports no additional complaints Neuro Reports no additional complaints Psych Reports as per HPI Endo Reports no additional complaints Aller/Immun Reports no additional complaints Physical Exam Const General: cooperative, healthy appearing, comfortable, no acute distress, well developed, alert and awake Orientation/consciousness: patient oriented x3 Limitations: language barrier HEENT Head: Yes normal to inspection, Yes normocephalic and Yes atraumatic Ears: hearing grossly normal bilaterally Eyes General: appearance normal, both eyes and all related structures Neck Neck: Yes normal visual inspection and Yes trachea midline Chest Chest palpation & inspection: normal inspection of the chest Resp Effort & Inspection: normal respiratory effort and able to speak in complete sentences Cardio Rate: regular rate GI Inspection: Yes normal to inspection Other: As per HPI General: Yes no CVA tenderness Back/Spine/Pelvis Back: no CVA tenderness Skin General skin exam: no rashes or lesions noted Neuro General: patient oriented x3 Extrem General: Yes normal to inspection Psych Appearance: grossly normal and well kempt Mental Status: mental status grossly normal Speech and movement: Normal speech and movement present and Clear speech present Affect: normal affect Attitude: cooperative Thought process: Normal thought process present Thought content: Normal thought content present Insight: Fair insight present (Psych) Judgement: Fair judgement present (Psych) Office Procedures Post Void Residual Post Residual Void Post Void Residual (PVR): 0 [id number] Void Residual by ultrasound Results AMB Urinalysis, Automated UA Leukoctes 0 Jesús/uL Last Edit by VIRY Pringle on 06/13/25 14:29 UA Nitrite Negative Last Edit by Cristin Hendrix [facility] on 06/13/25 14:29 UA Urobilinogen 0.2 mg/dL Last Edit by Cristin Hendrix [facility] on 06/13/25 14:2 9 UA Protein 0 mg/dL Last Edit by Cristin Hendrix [facility] on 06/13/25 14:29 UA pH 6.0 Last Edit by Cristin Hendrix [facility] on 06/13/25 14:29 UA Blood 0 Juan/uL Last Edit by Cristin Hendrix [facility] on 06/13/25 14:29 UA Specific [place] 1.020 Last Edit by Cristin Hendrix [facility] on 06/13/25 14: 29 UA Ketone Negative Last Edit by Cristin Hendrix [facility] on 06/13/25 14:29 UA Bilirubin 0 mg/dL Last Edit by Cristin Hendrix [facility] on 06/13/25 14:29 UA Glucose 0 mg/dL Last Edit by Cristin Hendrix [facility] on 06/13/25 14:29 Results Reviewed Results Reviewed: Laboratory Last Values Urine pH (Auto) 6.0 06/13/25 14:29 Specific [place] (Auto) 1.020 06/13/25 14:29 Urine Protein (Auto) 0 mg/dL 06/13/25 14:29 Glucose (UA)(Auto) 0 mg/dL 06/13/25 14:29 Urine Ketones (Auto) Negative 06/13/25 14:29 Urine Blood (Auto) 0 Juan/uL 06/13/25 14:29 Urine Nitrite (Auto) Negative 06/13/25 14:29 Urine Bilirubin (Auto) 0 mg/dL 06/13/25 14:29 Urine Urobilinogen (Auto) 0.2 mg/dL 06/13/25 14:29 Leukocyte Esterase (Auto) 0 Jesús/uL 06/13/25 14:29 Assessment & Plan Assessment & Plan (1) Nephrolithiasis: Code(s): N20.0 - Calculus of kidney Category: Medical (2) Renal cyst: Code(s): N28.1 - Cyst of kidney, acquired Category: Medical (3) Dysuria: Code(s): R30.0 - Dysuria Category: Medical (4) Incomplete bladder emptying: Code(s): R33.9 - Retention of urine, unspecified Category: Medical (5) Nocturia: Code(s): R35.1 - Nocturia Category: Medical (6) Prostatitis: Code(s): N41.9 - Inflammatory disease of prostate, unspecified Category: Medical Plan In office urinalysis results reviewed with the patient today; as noted above. PVR 0 mL. We did discussed potential causes of lower urinary tract symptoms patient continues to experience; we did discussed further treatment options of these lower urinary tract symptoms and risks and benefits of these treatment options. All questions were answered. Will increase Flomax to 0.8 mg daily. We did review again bladder triggers and irritants. Information provided regarding in office cystoscopy. Follow-up next available in office cystoscopy; or sooner with any issues, concerns, and or questions. In Orders: Orders AMB Urinalysis Automated Today Z13.9 - Encounter for screening, unspecified Medications: Changed From lisinopril 5 mg PO QAM To lisinopril 5 mg PO QAM 90 tabs 0RF 90 days From citalopram 20 mg PO QAM To citalopram 20 mg PO QAM 90 tabs 0RF 90 days From tamsulosin 0.4 mg PO BEDTIME 30 days 30 caps 3RF N40.1 - Benign prostatic hyperplasia with lower urinary tract symptoms, R35.1 - Nocturia To tamsulosin 0.8 mg (2 x 0.4 mg) PO BEDTIME 180 caps 3RF 90 days N40.1 - Benign prostatic hyperplasia with lower urinary tract symptoms, R35.1 - Nocturia Discontinued amoxicillin-pot clavulanate 500-125 mg (Augmentin) Discontinued Reason: Patient Completed Course 1 tab PO Q8H 14 days 42 tabs 0RF N39.0 - Urinary tract infection, site not specified Patient Instructions: The patient had an opportunity to ask questions regarding the treatment plan. All questions were answered. Physical exam, labs, and imaging were discussed and reviewed in detail. As well as risks, benefits, and discussion of treatment choices. No major barriers to understanding were identified. The patient expressed understanding and agreement with the above treatment plan. The patient was made aware they should contact our office by phone for worsening of their current condition, the appearance of new symptoms, or with any questions or concerns. Compliance is encouraged with any medications and follow up testing that is ordered. It is a privilege to be allowed the opportunity to participate in? your urological care.? Again, if you have any questions or concerns If you have any questions or concerns please do not hesitate to contact me. The office is [phone]. This note is constructed using voice recognition software. While every effort has been made to ensure accuracy lease examiner errors may have been included. Yours sincerely, MALLIKA Freitas Coding Level of Care Code Est Pt Level 3 (38614) Add On Problem Visit Only Diagnoses Nephrolithiasis N20.0 Renal cyst N28.1 Dysuria R30.0 Incomplete bladder emptying R33.9 Nocturia R35.1 Prostatitis N41.9 CPT Codes Post Residual Void - PVR CPT Code: 02873-Fefw Void Residual by ultrasound ([id number])
--- OUTSIDE RECORDS SUMMARY | 2025-06-13 15:26 | XMS_ITS | Encounter Summary ---
Author Organization [employer] Address [address] [place] [address] Care Team Providers Care Language Arts Teacher Name Role Phone Riya Ambrocio MD Primary Care Provide r Encounter Details Date Type Department Care Team (Late st Contact Info) Description 10/13/2024 Orders Only [facility] [address] [place] [address] Provider, MD Himanshu Social History Tobacco Use [...] as of this encounter Plan of Treatment Not on file documented as of this encounter Procedures Procedure Name Priority Date/Time Associated Diagnosis Comments HM COLONOSCOPY Routine 10/14/2023 9:04 PM EDT documented in this encounter Results * Hm Colonoscopy (10/14/2023 9:04 PM EDT) Colonoscopy Normal Normal Narrative Malorie Black - 10/14/2023 9:04 PM EDT Repeat colonoscopy for asymptomatic colorectal cancer screening recommended in 7 years due to prep ( see external hospital admission note on 10/14/2023) us Historical Provider HEALTH MAINTENANCE Edited Result - Final documented in this encounter Visit Diagnoses Not on filedocumented in this encounter Additional Health Concerns Assessment Noted Time PHQ-9 Depression Total Score: 0 10/27/19 24 9:27 AM EDT documented as of this encounter Care Teams Language Arts Teacher Relationship Specialty Start Date End Date Riya Ambrocio MD [address] [place] [address] PCP - General Family Medicine 12/23/18 documented as of this encounter
--- OUTSIDE RECORDS SUMMARY | 2025-06-13 15:26 | XMS_ITS | Clinical Summary ---
Author Organization [employer] Address [address] [place] [address] Care Team Providers Care Calender Feeder Name Role Phone Riya Ambrocio MD Primary [...] 2 Active ergocalciferol (Vitamin D-2) 1.25 MG (47896 UT) capsule take 1 capsule by oral [...] 8 (eight) hours. 90 capsule 2 4 Active citalopram (CeleXA) 20 MG tabletIndications :Mixed anxiety and depressive disorder Take 1 tablet (20 mg) by mouth Once per day. 90 tablet 1 5 Active atorvastatin (Lipitor) 20 MG tabletIndications :Primary [...] each day (Allergies). 30 tablet 2 5 Active lisinopril (Prinivil) 20 MG tabletIndications :Primary hypertension Take 1 tablet (20 mg) by mouth Once per day. 30 tablet 2 5 10/19/19 26 Active cyclobenzaprine (Flexeril) 10 MG tabletIndications :Muscle spasm Take 1 tablet (10 mg) by mouth at bedtime. 30 tablet 2 Active Ketotifen Fumarate 0.035 % solutionIndicatio ns:Seasonal allergies Administer 1 drop into affected eye(s) every 12 (twelve) hours if needed (use if needed). INSTILL 1 DROP INTO EACH EYE TWICE A DAILY 10 mL 1 5 Active Active Problems Problem Noted Date Diagnosed Date Fractured dental islam without loss of mat erial 12/19/2024 Muscle spasm 10/18/2024 Assessment & Plan (10/18/2024 [...] on today I refer patient patient to battery tester field Assessment & Plan (08/23/2024 10:30 AM EDT): [...] on gabapentin XRAY and PT Fractured dental islam with loss of materi al 04/03/2024 Generalized [...] 12:20 PM EDT): Sleep study information provided Social History Tobacco Use Types Packs/Day Years [...] 10/18/2024 2:47 PM EDT Plan of Treatment Health Maintenance Due Date Last Done Comments CT Colonography 1966 FIT DNA/Cologuard 1966 FIT 1966 FOBT 1966 Sigmoidoscopy 1966 Alcohol/Substance Use Screening 1978 DTaP/Tdap/Td Vaccines (1 - Tdap) 1985 Hepatitis B Vaccines (1 of 3 - 19+ 3-dose series) 1985 Pneumococcal Vaccine: 50+ Years (1 of 1 - PCV) 2016 Zoster Vaccines (1 of 2) 2016 Dental Oral Exam 04/30/2024 10/28/2023, 09/12/2021 Dental Prophylaxis 06/01/2024 11/30/2023, 1 , 09/16/2021 Depression Screening 10/26/2024 2023, 10/27/19 24 Dental X-Ray: Bitewings 10/28/2024 10/28/2023, 09/12 Dental X-Ray: Full Mouth 12/17/2024 12/16/2021, 06/2021 COVID-19 Vaccine ( season) 2025 12/12/2021, 05/21/2021, 10/14/2020, Additional history exists Influenza Vaccine (#1) 2025 SDOH Screening 06/23/2025 06/23/2024 Disability Screening 10/18/2025 10/18/2024 Tobacco Screening 12/19/2025 12/19/2024 Lipid Panel 04/16/2027 04/16/2022 Colonoscopy 10/13/2030 10/14/2023 [...] hospital admission note on 10/14/2023) Historical Provider HEALTH MAINTENANCE Edited Result - Final * Hepatitis C Antibody with Reflex to HCV, RNA, Quantitative, Real-Time PCR (12/09/2022 10:08 AM EDT) Hepatitis C Antibody NON-REACT BRIAN NON-REACT BRIAN [employer] [place] [employer] [place] Comment: HCV antibody was non-reactive. There is no laboratory evidence of HCV infection. In most cases, no further action is required. However, if recent HCV exposure is suspected, a test for HCV RNA (test code 72952) is suggested. For additional information please refer to http://education.[employer]/faq/LDP84x7 (This link is being provided for informational/ educational purposes only.) Blood Venous blood specimen / Unknown 12/09/2022 10:08 AM EDT 12/09/2022 10:09 AM EDT Narrative [facility] - 12/10/2022 5:39 PM EDT FASTING:NO FASTING: NO Riya Bonilla MD LAB BLOOD ORDERABLES Final Result [facility] [address], [place] [address] [employer] [place] [employer] [address] [place] [address] * HIV-1/2 Antigen and Antibodies, Fourth Generation, with Reflexes (12/09/2022 10:08 AM EDT) Pathologist [facility] HIV Antigen/Antibody, 4th Generation NON-REAC TIVE NON-REAC TIVE [employer] [facility] [place] Comment: HIV-1 antigen and HIV-1/HIV-2 antibodies were [...] purpose. For additional information please refer to http://education.[employer]/faq/KXQ858 (This link is being provided for informational/ educational purposes only.) The performance of this assay has not been clinically validated in patients less than 2 years old. Blood Venous blood specimen / Unknown 12/09/2022 10:08 AM EDT 12/09/2022 10:09 AM EDT Narrative [facility] - 12/10/2022 5:39 PM EDT FASTING:NO FASTING: NO Riya Bonilla MD LAB BLOOD ORDERABLES Final Result [facility] [address], [place] [address] [employer] [email or web address] [address] [place] [address] * (ABNORMAL) LIPID PANEL, STANDARD (04/16/2022 3:36 PM EDT) Pathologist [facility] Chol/HDLC Ratio 6.6(H) <5.0 (calc) CONVERTED LEGACY [...] factors. LDL-C is now calculated using the Addy calculation, which is a validated novel method providing better accuracy than the Friedewald equation in the estimation of LDL-C. Jatin KUO et al. DAISY. 2013;310(19): 2120-4845 (http://education.[employer]/faq/JRS929) Non-HDL Cholesterol 152(H) <130 mg/dL (calc) CONVERTED [...] Clin. Lipidol. 2015;9:129-169. 04/16/2022 3:36 PM EDT Riya Bonilla MD LAB BLOOD ORDERABLES Final Result CONVERTED LEGACY LABS from Last 3 Months or Most Recently Relevant to Health Maintenance Insurance [facility] PARTIAL [facility] 2 DENTAL - HSN PARTIAL (MEDICAID) Care Teams Calender Feeder Relationship Specialty Start Date End Date Riya Ambrocio MD [address] [place] [id number] PCP - General Family Medicine 12/23/18
--- OUTSIDE RECORDS SUMMARY | 2025-06-13 15:26 | XMS_ITS | Clinical Summary ---
Author Organization [facility] Address [address] [place] [address] Care Team Providers Care Electorate Officer Name Role Phone Riya Ambrocio MD Primary Care Provider Allergies No known active allergies Medications tamsulosin (FLOMAX) 0.4 mg capsule Take 1 capsule (0.4 mg total) by mouth once a day. 30 capsule 11 09/19/2021 Active Social History Tobacco Use Types Packs/Day Years Used Date Smoking Tobacco: Never Assessed Sex and Gender Information Value Date Recorded Sex Assigned at Not on file Legal Sex Male 1:46 PM EST Gender Identity Not on file Sexual Orientation Not on file Last Filed Vital Signs Vital Sign Reading Time Taken Comments Blood Pressure 155/92 09/19/2021 1:44 PM EDT Pulse 88 09/19/2021 1:44 PM EDT Temperature - - Respiratory Rate - - Oxygen Saturation - - Inhaled Oxygen Concentration - - Weight - - Height - - Body Mass Index - - Plan of Treatment Health Maintenance Due Date Last Done Comments Cologuard 1966 Colon Cancer Screening 1966 Colonoscopy 1966 FOBT / Fit Test 1966 HIV Screening 1966 Sigmoidoscopy 1966 Hepatitis B Vaccines (1 of 3 - 19+ 3-dose series) 10/12 DTaP,Tdap,and Td Vaccines (1 - Tdap) 1988 Pneumococcal Vaccine: 50+ Years (1 of 1 - PCV) 017 Zoster Vaccines (1 of 2) 2016 Alcohol/Substance Use Screening 06/14/2024 Influenza Vaccine (#1) 2025 Insurance [place] [facility] [facility] Care Teams Electorate Officer Relationship Specialty Start Date End Date Riya Ambrocio MD [address] [place] [id number] PCP - General 06/18/21
--- OUTSIDE RECORDS SUMMARY | 2025-06-13 15:26 | XMS_ITS | Encounter Summary ---
Author Organization [employer] Address [address] [facility] [address] [place] [address] Care Team Providers Care Apprentice Photographer Name Role Phone Riya Ambrocio MD Primary Care Provide r Reason for Visit * Reason Comments Med Refill Encounter Details Date Type Department Care Team (Late st Contact Info) Description 12/02/2024 Refill [facility] [address] [place], [place] [phone] Riya Ambrocio MD [address] [place], [place] [phone] Primary hypertension; Mixed anxiety and depressive disorder Social History Tobacco Use Types Packs/Day Years [...] on file documented as of this encounter Visit Diagnoses Diagnosis Primary hypertension Unspecified essential hypertension Mixed anxiety and depressive disorder Dysthymic disorder documented in this encounter Additional Health Concerns Assessment Noted Time PHQ-9 Depression Total Score: 0 10/27/19 24 9:27 AM EDT documented as of this encounter Care Teams Apprentice Photographer Relationship Specialty Start Date End Date Riya Ambrocio MD [address] [place] [address] PCP - General Family Medicine 12/23/18 documented as of this encounter
--- OUTSIDE RECORDS SUMMARY | 2025-06-13 15:26 | XMS_ITS | Encounter Summary ---
Author Organization [employer] Address [address] [facility] [address] [place] [phone] Care Team Providers Care Automatic Spooler Operator Name Role Phone Riya Ambrocio MD Primary Care Provide r Encounter Details Date Type Department Care Team (Latest Contact Info) Description 09/16/2021 Abstract [facility] CONVERSIONS Dental, Provider, DDS Social History Tobacco [...] on filedocumented in this encounter Care Teams Automatic Spooler Operator Relationship Specialty Start Date End Date Riya Ambrocio MD [address] [place] [address] PCP - General Family Medicine 12/23/18 documented as of this encounter
== END 2025-06-13 14:51 | disposition home or self-care (01) ==
LOC: HO.HUSH 14:15
PROVIDERS: PCP Internal Medicine; Visit Provider Nurse Practitioner Family
DX: N20.0 Calculus of kidney (principal); N28.1 Cyst of kidney, acquired; R30.0 Dysuria; R33.9 Retention of urine, unspecified; R35.1 Nocturia; N41.9 Inflammatory disease of prostate, unspecified; Z13.9 Encounter for screening, unspecified
CPT/HCPCS: 99213

== ENCOUNTER → 2025-06-13 14:14 | Outpatient (BNVA) | payer OTHER, SELFPAY | PROVIDERS: PCP Internal Medicine; Visit Provider Nurse Practitioner Family | DX: N40.1 Benign prostatic hyperplasia with lower urinary tract symptoms (principal); N20.0 Calculus of kidney; N28.1 Cyst of kidney, acquired; N41.9 Inflammatory disease of prostate, unspecified; R30.0 Dysuria; R33.9 Retention of urine, unspecified; R35.1 Nocturia; Z79.899 Other long term (current) drug therapy | CPT/HCPCS: 51798; 81003; 99212 ==